=== PATIENT | female | born 1975 | race Caucasian/White ===

== ENCOUNTER → 2017-10-24 11:56 | Outpatient (CLI) | payer MEDICAID, SELFPAY ==
[2017-10-24 15:25] LABS: Absolute Lymphocyte Count 2.45 X10^3/ul (0.83-4.51); Absolute Neutrophil Count 6.7 X10^3/uL (2.0-7.7); Basophil# 0.03 X10^3/uL; Basophil% 0.3 % (0-1); Eosinophil# 0.31 X10^3/uL; Eosinophils% 3.1 % (0-5); Hematocrit 40.5 % (37-47); Hemoglobin 13.3 g/dl (12.0-15.0); Lymphocyte # 2.45 X10^3/ul (4.0); Lymphocyte % 24.1 % (19-41); Mean Corp Hgb Conc 32.8 g/gl (32-36); Mean Corpuscular Hgb 30.4 pg (27.0-32.0); Mean Corpuscular Volume 92.7 fL (81-99); Mean Platelet Vol. 10.1 fl (6.2-12.0); Monocyte# 0.62 X10^3/uL; Monocyte% 6.1 % (0-10); Neutrophil # 6.72 X10^3/uL (2.7-7.7); Neutrophil % 66.1 % (47-70); Platelet Count 297 K/mm3 (150-450); RBC Distribution Width CV 12.9 % (11.6-14.6); RBC Distribution Width SD 43.9 fl (35.1-43.9); Red Blood Count 4.37 M/mm3 (4.2-5.4); White Blood Count 10.2 K/mm3 (4.4-11.0)
[2017-10-24 15:34] LABS: Thyroid Stim Hormone (TSH) 0.84 uIU/mL (0.358-3.74)
[2017-10-24 15:44] LABS: POSITIVE COUNT NO; POSITIVE DIFFERENTIAL NO; POSITIVE MORPHOLOGY NO
== END ==
PROVIDERS: Family Provider Family Medicine; PCP Family Medicine; Visit Provider Family Medicine
DX: N92.0 Excessive and frequent menstruation with regular cycle (principal); N94.6 Dysmenorrhea, unspecified
CPT/HCPCS: 36415; 84443; 85025

== ENCOUNTER → 2017-11-01 15:08 | Outpatient (CLI) | payer MEDICAID, SELFPAY ==
[2017-11-03 14:26] LABS: HPV APTIMA, High Risk Negative (Negative)
== END ==
PROVIDERS: Nurse Practitioner Women's Health; Family Provider Family Medicine; PCP Family Medicine; Visit Provider Obstetrics & Gynecology
DX: Z12.4 Encounter for screening for malignant neoplasm of cervix (principal)
CPT/HCPCS: 88175; G0145

== ENCOUNTER → 2017-11-03 12:44 | Outpatient (CLI) | payer MEDICAID, SELFPAY ==
--- NOTE | 2017-11-03 12:45 | US_ITS ---
STUDY: ULTRASOUND TRANSVAGINAL CLINICAL: Female, 42 years old. Menorrhagia. Painful intercourse. TECHNIQUE: Transvaginal COMPARISON: None. FINDINGS: Normal uterine size measuring 9.4 cm in maximal craniocaudal dimension. Within the anterior uterine fundus there is an intramural hypoechoic rounded focus consistent with underlying fibroid which measures 1.0 x 1.0 x 0.9 cm. There is an additional intramural fibroid within the anterior lower uterine segment which measures 0.8 x 0.7 x 0.6 cm. Normal endometrial thickness measuring 7 mm. There are no endometrial masses, and there is no fluid in the endometrial cavity. Normal uterine cervix. Normal right ovary, measuring 3.2 x 2.8 x 2.0 cm. There is a simple cyst which measures up to 1.9 cm. Normal left ovary, measuring 2.8 x 2.9 x 1.9 cm. There is a simple cyst which measures up to 1.2 cm. There is no free fluid in the pelvis. Polycystic ovary disease: No. US/Transvaginal Non- IMPRESSION: Intramural uterine fibroids. Electronically Signed: Lela Gilbert MD at 17:01 EDT Tel , Service support ,
--- NOTE | 2017-11-03 12:45 | US_ITS ---
STUDY: ULTRASOUND TRANSVAGINAL CLINICAL: Female, 42 years old. Menorrhagia. Painful intercourse. TECHNIQUE: Transvaginal COMPARISON: None. FINDINGS: Normal uterine size measuring 9.4 cm in maximal craniocaudal dimension. Within the anterior uterine fundus there is an intramural hypoechoic rounded focus consistent with underlying fibroid which measures 1.0 x 1.0 x 0.9 cm. There is an additional intramural fibroid within the anterior lower uterine segment which measures 0.8 x 0.7 x 0.6 cm. Normal endometrial thickness measuring 7 mm. There are no endometrial masses, and there is no fluid in the endometrial cavity. Normal uterine cervix. Normal right ovary, measuring 3.2 x 2.8 x 2.0 cm. There is a simple cyst which measures up to 1.9 cm. Normal left ovary, measuring 2.8 x 2.9 x 1.9 cm. There is a simple cyst which measures up to 1.2 cm. There is no free fluid in the pelvis. Polycystic ovary disease: No. US/Pelvic (Non ) IMPRESSION: Intramural uterine fibroids. Electronically Signed: Lela Gilbert MD at 17:01 EDT Tel , Service support ,
== END ==
PROVIDERS: Family Provider Family Medicine; PCP Family Medicine; Visit Provider Nurse Practitioner Women's Health
DX: N92.0 Excessive and frequent menstruation with regular cycle (principal)
CPT/HCPCS: 76830; 76856; 93976

== ENCOUNTER → 2017-11-29 12:39 | Outpatient (CLI) | payer MEDICAID, SELFPAY ==
--- NOTE | 2017-11-29 13:00 | MRI_ITS ---
STUDY: MRI RIGHT ANKLE WITHOUT CONTRAST REASON FOR EXAM: Medial right heel and ankle pain for 6 months. TECHNIQUE: Standardized fat and water weighted pulse sequences were obtained in all 3 orthogonal planes. COMPARISON: None. FINDINGS: Normal subcutis adipose space. There is fluid in the proximal posterior tibialis and flexor digitorum longus tendon sheaths (inversion recovery sagittal images 7-10). There is tendinosis and partial tear of the perimalleolar posterior tibialis tendon (T2 axial images 13-16). The flexor digitorum longus tendon is morphologically normal. Normal flexor hallucis longus tendon. Normal peroneus longus and brevis tendons. Normal tibialis anterior tendon. Normal extensor hallucis longus tendon. Normal extensor digitorum longus tendons. Normal Achilles tendon and teno-osseous insertion. Normal plantar fascia. Normal plantar calcaneal tubercles. Normal intrinsic muscles of the rearfoot. Normal distal tibiofibular syndesmotic ligamentous complex. Normal lateral ligamentous complex. Normal subtalar ligaments and sinus tarsi. Normal deltoid ligamentous complexes. Normal plantar calcaneonavicular (spring) ligament. Normal tibiotalar articulation. Normal talar dome. There is a small posterior subtalar joint effusion (inversion recovery sagittal images 11-13). There is a small talonavicular joint effusion (inversion recovery sagittal image 9). Normal calcaneocuboid articulation. Normal navicular-cuneiform articulations. There is cystic change of the superior body of the calcaneus (inversion recovery sagittal images 13, 14). MRI/Lower Ext Joint Only (Routine) IMPRESSION: Partial tear, tendinosis and tenosynovitis of the posterior tibialis tendon. Flexor digitorum longus tenosynovitis. Small posterior subtalar and talonavicular joint effusions. Electronically Signed: Steve Connolly MD at 14:24 EDT Tel , Service support ,
== END ==
PROVIDERS: Family Provider Family Medicine; PCP Family Medicine; Visit Provider Podiatrist
DX: M76.822 Posterior tibial tendinitis, left leg (principal)
CPT/HCPCS: 73721

== ENCOUNTER → 2018-01-19 09:48 | Outpatient (CLI) | payer MEDICAID, SELFPAY ==
[2018-01-19 12:25] LABS: Absolute Lymphocyte Count 2.11 X10^3/ul (0.83-4.51); Absolute Neutrophil Count 5.5 X10^3/uL (2.0-7.7); Basophil# 0.03 X10^3/uL; Basophil% 0.4 % (0-1); Eosinophil# 0.27 X10^3/uL; Eosinophils% 3.2 % (0-5); Hematocrit 38.1 % (37-47); Hemoglobin 12.8 g/dl (12.0-15.0); Lymphocyte # 2.11 X10^3/ul (4.0); Lymphocyte % 24.9 % (19-41); Mean Corp Hgb Conc 33.6 g/gl (32-36); Mean Corpuscular Hgb 30.6 pg (27.0-32.0); Mean Corpuscular Volume 91.1 fL (81-99); Mean Platelet Vol. 10.1 fl (6.2-12.0); Monocyte# 0.54 X10^3/uL; Monocyte% 6.4 % (0-10); Neutrophil % 64.9 % (47-70); Platelet Count 318 K/mm3 (150-450); RBC Distribution Width CV 12.3 % (11.6-14.6); RBC Distribution Width SD 40.2 fl (35.1-43.9); Red Blood Count 4.18 M/mm3 (4.2-5.4); White Blood Count 8.5 K/mm3 (4.4-11.0)
[2018-01-19 12:38] LABS: POSITIVE COUNT NO; POSITIVE DIFFERENTIAL NO; POSITIVE MORPHOLOGY NO
[2018-01-19 12:54] LABS: ALB/GLOB Ratio 1.2 RATIO (0.9-2.4); AST(SGOT) 16 U/L (15-37); Alanine Aminotransfer ALT/SGPT 19 U/L (13-56); Alkaline Phosphatase 60 U/L (45-117); Anion Gap 8 (5-15); BUN 15 mg/dL (7-18); BUN/Creat Ratio 21.2 RATIO (10-20); Calcium,Total 8.9 mg/dL (8.5-10.1); Chloride 107 mmol/L (98-107); Creatinine, Serum 0.71 mg/dL (0.55-1.02); EST Glomerular Filtration Rate 97 mL/min (>60); Est Glom Filt Rate - Afr Amer 117 mL/min (>60); Globulin 3.2 g/dL (2.2-4.2); Glucose 88 mg/dL (74-106); Potassium 4.5 mmol/L (3.5-5.1); Protein, Total 7.2 g/dL (6.4-8.2); Sodium Level 139 mmol/L (136-145)
== END ==
PROVIDERS: Family Provider Family Medicine; PCP Family Medicine; Visit Provider Family Medicine
DX: Z01.818 Encounter for other preprocedural examination (principal)
CPT/HCPCS: 36415; 80053; 85025

== ENCOUNTER 2018-01-26 08:28 | Day surgery (SDC) | payer MEDICAID, SELFPAY ==
[2018-01-26] VITALS (7 sets, daily range): BP systolic 102–129; BP diastolic 64–81; PULSE 68–78; RESP 16–18; TEMP 36.6–36.8; O2SAT 95–100; BMI 30.7
--- NOTE | 2018-01-26 08:40 | EKG12_ITS ---
Test Reason : PRE-OP Blood Pressure : / mmHG Vent. Rate : 064 BPM Atrial Rate : 064 BPM P-R Int : 116 ms QRS Dur : 082 ms QT Int : 404 ms P-R-T Axes : 028 019 -03 degrees QTc Int : 416 ms Normal sinus rhythm Normal ECG When compared with ECG of 17-DEC-2012 11:01, No significant change was found Confirmed by MIGUELITO LORA ([id number]), assignment desk editor SARAH SLADE ([id number]) on 01/30/2018 2:08:09 PM Referred By: Ney Medrano Confirmed By:MIGUELITO LORA
[2018-01-26 08:51] LABS: Internal QC Validated? YES +Cl - CLEAR BKGD
[2018-01-26 08:55] LABS: Pregnancy, Urine Negative Negative
--- NOTE | 2018-01-26 10:00 | RAD_ITS ---
STUDY: X-RAY - RIGHT CALCANEUS REASON FOR EXAM: Female, 42 years old. Osteotomy. TECHNIQUE: 4 view(s) of the calcaneus were obtained. COMPARISON: MRI 11/29/2017. FINDINGS: There are 4 Limited [id number] intraoperative C-arm images which show a single orthopedic screw along the length of the calcaneus fixating a previous osteotomy of the posterior process into anatomic alignment and position. Correlate with procedure note. Electronically Signed: Daniel Gifford MD at 16:53 EDT , Service support , RAD/Calcaneus min 2 Views
--- NOTE | 2018-01-26 10:00 | TESH_PTH ---
PATIENT: MADISON GREER [place] [facility] [id number] AGE/SX: 42/F ROOM: RE01/26/[address]: QUIANA KeeneM : 1975 BED: DIS: 01/26/2018 SPEC #: [id number] RECD: 01/26/18 15:55 STATUS: ARI REQ #: [id number] NADEEM: 01/26/18 10:[address]: Ney Medrano DEPT: SURGICAL PATHOLOGY RECD BY: Yasmine Dow ENTERED: 01/29/18 11:52 SP TYPE: TENDON OTHR DR: Dr. Sandip Douglas, DO Tissues: Tendon and tendon sheath, NOS Procedures: Surgery Specimen Level III HEADER OPERATION: Debridement, repair posterior tibial tendon tear PRE-OP DIAGNOSIS: Posterior tibial tendon dysfunction; posterior tibial tendonitis and tear; pes planus, gastrocsoleus equinus contracture TISSUE SUBMITTED: Debridement right posterior tibial tendon MICROSCOPIC DIAGNOSIS Right posterior tibial tendon: Pieces of dense fibroconnective tissue with reactive changes. ANUPAM:faustino 01/30/18 MICROSCOPIC DESCRIPTION Slides are reviewed. GROSS DESCRIPTION Received in fixative is one container labeled with the patient's name and designated debridement right posterior tibial tendon. The specimen consists of multiple pieces of joyce-white soft tissue that in aggregate measure 3 x 2.5 x 0.3 cm. The entire specimen is submitted in one cassette. / ANUPAM:faustino 01/29/18 TC:5 CPT: 41055
[2018-01-26] MEDS: Cefazolin 2 GM in 0.9% Normal Saline 100 ML IV (10:52)
[2018-01-26] MEDS: Bupivacaine 0.25% 30 ML Vial (14:10)
--- NOTE | 2018-01-26 14:21 | RAD_ITS ---
STUDY: X-RAY - RIGHT FOOT CLINICAL: Female, 42 years old. Post op. TECHNIQUE: 3 view(s) of the foot. COMPARISON: Calcaneus, January 26, 2018. MRI of the right ankle, November 29, 2017. FINDINGS: There is a cortical screw transfixing the length of the calcaneus. The fractures appear to be in normal alignment. Normal talus and tarsal bones. Normal visualized subtalar, talonavicular, calcaneocuboid, tarsal and tarsometatarsal articulations. Normal metatarsi. Normal metatarsophalangeal joint of the great toe. Normal tibial and fibular sesamoid bones. Normal interphalangeal joint of the great toe. Normal phalanges of the great toe. Normal second through fifth metatarsophalangeal joints. Normal interphalangeal joints and phalanges of the lesser toes. Soft tissues thickening and air about the hindfoot. RAD/Foot min 3 Views IMPRESSION: Status post internal fixation of a calcaneal fracture. Electronically Signed: Rob Guerrero DO at 15:18 EDT Tel [phone], Service support ,
--- NOTE | 2018-01-26 14:22 | RAD_ITS ---
STUDY: X-RAY - RIGHT CALCANEUS REASON FOR EXAM: Female, 42 years old. Postop. TECHNIQUE: 2 view(s) of the calcaneus were obtained. COMPARISON: Right foot, January 26, 2018. FINDINGS: There is a metallic screw transfixing the length of the calcaneus. The calcaneus appears otherwise normal. The fractures in normal alignment. Normal articulations of the hindfoot. A semiopaque splint is seen along the dorsum of the foot and posterior leg. RAD/Calcaneus min 2 Views IMPRESSION: Status post internal fixation of a calcaneal fracture. Electronically Signed: Rob Guerrero DO at 15:22 EDT Tel [phone], Service support ,
--- NOTE | 2018-01-26 14:23 | PCM.DC.POD ---
Discharge Diet: Light diet - advance as tolerated Discharge Activity: May Not Drive Weight Bearing Status: No weight bearing - No weightbearing right foot Keep extremity elevated above heart level: Right Leg - Keep right foot elevated for at least 50 minutes of every hour Call your doctor if your incision/area has: Continuous Slow Oozing, Sudden Increased Bleeding, Foul Smelling Discharge Call your doctor if you observe: Fever of 101 or Higher, Shortness of breath, Chest pain, Calf discomfort, Uncontrolled pain Cleanse incision/area with: Do not get Incision Wet, Keep Dressing Clean & Dry Allergies/Adverse Reactions: Allergies SEASONAL Allergy (Uncoded 01/24/18 14:44) Other Medications to take at Discharge citalopram 20 mg tablet 20 mg PO QDAY 11/01/17 desogestrel 0.15 mg-ethinyl estradiol 0.03 mg tablet 1 tab PO QDAY #28 tab 12/27/17 Amoxicillin/Potassium Clav [Augmentin 500-125 Tablet] 1 ea PO Q12H #14 tab 01/26/18 Oxycodone HCl/Acetaminophen [Percocet 5/325] 1 - 2 tab PO Q4H PRN PRN 3 Days #40 tab 01/26/18 Rivaroxaban [Xarelto] 10 mg PO DAILY #30 tab 01/26/18 The following prescriptions were given: Oxycodone HCl/Acetaminophen [Percocet 5/325] 1 - 2 tab PO Q4H PRN PRN 3 Days #40 tab PRN Reason: Pain Amoxicillin/Potassium Clav [Augmentin 500-125 Tablet] 1 ea PO Q12H #14 tab Rivaroxaban [Xarelto] 10 mg PO DAILY #30 tab Primary Care Physician: Sandip Douglas DO [Primary Care Provider] - Test Results: Test results from this visit will be discussed in further detail at your follow-up appointment, if applicable. Please Follow Up With: Ney Medrano DPM When: within 1 week or sooner if needed
--- NOTE | 2018-01-26 14:28 | OP.PCM_ITS ---
Report of Operation Date of Procedure: 01/26/18 Pre-Operative Diagnosis: Posterior tibial tendon tear/tendinosis, pes planovalgus, posterior tibial tendon dysfunction, gastrocsoleus equinus right foot Post-Operative Diagnosis: Same Surgery/Procedure Performed:: Debridement and repair of the posterior tibial tendon, flexor digitorum longus tendon transfer, calcaneal osteotomy, and endoscopic gastrocsoleus recession, right general maintenance helper: Yes - Dr. Rosangela Watson Type of Anesthesia:: MAC, Spinal Specimen's removed: Debrided posterior tibial tendon (right) sent to pathology Estimated Blood Loss (mL): 50mL Description of Procedure: Indications: This is a 42 year old female who has continued right foot pain due to dysfunction of the posterior tibial tendon, flexible pes planovalgus, partial tear and tendinosis and tenosynovitis of the posterior tibial tendon. She continues to have pain despite immobilization, bracing, rest, activity modifications, icing, and anti-inflammatories. She has elected to undergo surgical intervention as noted above. The procedures were reviewed with her, reviewed the rationale of the procedures as well as the possible benefits, risks , goals, expectations, alternative options, and typical healing/post operative recovery course. This was discussed with her in detail, she expressed understanding and agreement, she elected to proceed forward. All of her questions were answered. The consent forms were reviewed with her, and she freely signed them. No guarantees were given nor implied. Operative Procedure: The patient was brought back into the operating room. The patient received spinal anesthesia per the anesthesia team. The patient was placed on the operating table in the supine position. Patient was carefully secured to the operating room table with a safety belt around her waist. A time out was performed and the patient was properly identified and the surgical plan was confirmed. The patient received MAC anesthesia per the anesthesia team. The patient received 2 grams of intervenous Cefazolin for antibiotic prophylaxis. A well padded pneumatic tourniquet was applied around the patient's right thigh. The right lower extremity was scrubbed, prepped, and draped in the usual aseptic fashion. Attention was directed to the right foot, there was noted to be Stage 2 flexible pes planovalgus present with gastrocsoleus equinus present. There was - 3 degrees dorsiflexion with knee extended and less than 10 degrees with knee flexed. The right foot was elevated for 3 minutes and the right thigh pneumatic tourniquet was inflated to 300mmHg. Attention was directed to the hindfoot. An oblique linear skin incision was made to the lateral aspect of the heel overlying the calcaneal wall. Careful direction was completed down to the lateral calcaneal wall being sure to avoid the sural nerve and peroneal tendons. A calcaneal osteotomy was planned, and was made using a powered sagittal saw, going through the body of the calcaneus from lateral to medial and from posterior proximal to anterior distal. The osteotomy was finished with an osteotome through the medial wall of the calcaneus being sure to avoid the medial tendons and neurovascular bundle. The posterior calcaneus was gently freed up and translated medially. Clinically it was displaced medially 6mm. It was fixated using one cannulated 7.0mm Arthrex screw. A small skin incision was made to the posterior heel with careful dissection completed down to the cortex of the calcaneus. It was placed using standard rigid open reduction internal fixation technique. The osteotomy was very stable with good fixation, there was good bone to bone compression. Proper placement of the screw was confirmed using intra operative fluoroscopy. The ledge of bone on the lateral calcaneal wall at the level of the osteotomy was gently smoothed down. The sites was flushed out with copious amounts of normal saline solution. The subcutaneous tissue was reapproximated using 3-0 Vicryl. The skin was reapproximated using 4-0 Monocryl. Attention was directed to the medial foot and ankle. A curvilinear skin incision was made along the course of the posterior tibial tendon from the medial ankle to just distal to the navicular tuberosity. Careful dissection was completed through the subcutaneous tissue to the posterior tibial tendon sheath. The posterior tibial tendon sheath was opened with a dissection scissor. The posterior tibial tendon was visualized, there was significant tenosynovitis, as well as tendinosis with hypertrophy. There was noted to be a longitudinal partial tear of the posterior tibial tendon as well. This involved <50% and the tendon appeared to be salvageable. It was intact at it's insertion point on the navicular tuberosity. The unhealthy tissue was debrided away, removing the tenosynovitis and tendinosis, this was debrided with a 15 scalpel blade, and the debrided tissue was sent to pathology. The longitudinal tear of the posterior tibial tendon was repaired and tubularized using 3-0 Vicryl. The flexor digitorum longus tendon sheath was visualized and opened using a dissecting scissor. The tendon was noted to be intact, and it was noted to be healthy and viable, however it was noted to be small in diameter. The was related proximal to the knot of Rob. A drill hole was placed through the navicular starting from plantar medial and exited dorsal lateral. Proper placement of the screw was confirmed using intra operative fluoroscopy. The flexor digitorum tendon was routed through the drill hole in the navicular and pulled to the appropriate tension, and a 4.75mm Arthrex tenodesis screw was placed holding the flexor digitorum longus tendon in/to the navicular for the transfer. It was holding very well and in good position. The site was flushed out with copious amounts of normal saline solution. The tendon sheaths were reapproximated using 3-0 Vicrul. The subcutaneous tissue was reapproximated using 3-0 Vicryl. The skin was reapproximated using 4-0 Monocryl. Attention was directed just distal to the medial head of the gastrocnemius muscle belly on the posterior leg. A 1cm linear skin incision was made using a 15 blade at this level at the medial aspect. Careful blunt dissection was completed down to the gastrocsoleus aponeurosis. A fascial elevator was used and a plane was complete between the subcutaneous tissue and the posterior aspect of the gastrocsoleus aponeurosis, and a 1cm linear skin incision was made using a 15 blade at the lateral aspect of the leg to create the lateral portal. The fascial elevator was removed. An obturator and slotted cannula was placed through the medial and lateral portals. The obturator was removed and the slot was faced posteriorly. The sural nerve and the small saphenous vein were visualized confirming they were out of the way. The slot was rotated to face anteriorly and the gastrocsoleus aponeurosis was visualized. Using a hook blade the gastrocsoleus aponeurosis was released, being sure not to cut into the soleus muscle belly. The underlying soleus muscle belly was visualized. There was now noted to be +10 degrees of ankle dorsiflexion with knee extended, and +10 with the knee flexed. The obturator was placed in the cannula, and they were both removed. The site was flushed out with copious amounts of normal saline solution. The skin was reapproximated using 4-0 Monocryl. The pneumatic tourniquet was deflated and there was immediate return of warm and perfusion to the left lower extremity, with normal CFT to all of the toe and normal temperature present. The foot was load, and it was noted the foot was in good alignment with correction of the stage 2 flatfoot. There was smooth normal range of motion of the foot and ankle, with no popping, clicking or crepitus noted. Cavilon was painted to the edges of the suture skin incisions. Steri-strips were applied across the suture skin incisions. A dressing was applied which consisted of Betadine soaked adaptic, 4x4 gauze, Kerlix, renny bandage and a well padded below knee posterior splint secured with renny bandages. The patient tolerated the above operative procedure well and the anesthesia well with no complications. The patient was transported from the operative room to the recovery room with vital sign stable and in good condition. Post operative orders were placed. Post operative instructions were reviewed with patient and her mother who was with her today - both verbal and written. Keep feet elevated for at least 50 minutes of every hour, keep dressings clean, dry, and intact. No weightbearing right foot. Percocet 5mg/325mg 1-2 tabs PO q 4 hours PRN pain. Xarelto 10mg PO once daily was prescribed for DVT prophylaxis. Patient to follow up in 1 week, or sooner if needed. P ost operative xrays were obtained the the recovery room, 3 view foot and 2 view calcaneus. These images were reviewed which confirmed calcaneal osteotomy with screw fixation intact, proper placement of the screw and good bone to bone contact. There is noted drill hole through the navicular for the tendon transfer. No evidence of complications. Grafts/Implants Used: 7.0mm Arthrex screw, 4.75mm Arthrex tenodesis screw
== END 2018-01-26 15:56 | disposition home or self-care (01) ==
LOC: SDC 08:29 → AC 08:32
PROVIDERS: Anesthesiology; Family Provider Family Medicine; PCP Family Medicine; Visit Provider Podiatrist
PROC: (CPT 29999; principal; 2018-01-26 09:45)
PROC: (CPT 28300; 2018-01-26 09:45)
DX: M76.821 Posterior tibial tendinitis, right leg (principal); M21.41 Flat foot [pes planus] (acquired), right foot; M21.071 Valgus deformity, not elsewhere classified, right ankle; S86.111A Strain of other muscle(s) and tendon(s) of posterior muscle group at lower leg level, right leg, initial encounter; X58.XXXA Exposure to other specified factors, initial encounter; Y93.9 Activity, unspecified; Y92.9 Unspecified place or not applicable; Y99.9 Unspecified external cause status; F32.9 Major depressive disorder, single episode, unspecified; F41.9 Anxiety disorder, unspecified; F17.200 Nicotine dependence, unspecified, uncomplicated; Z79.899 Other long term (current) drug therapy; Z79.01 Long term (current) use of anticoagulants
CPT/HCPCS: 01470; 27691; 28200; 28300; 29999; 64445; 73630; 73650; 76000; 81025; 88304; 93005; C1713; J7120; J2405

== ENCOUNTER 2018-05-03 10:00 | Outpatient (RCR) | payer MEDICAID, SELFPAY ==
--- NOTE | 2018-03-30 10:49 | HP.PTEVAL_ITS ---
Patient's Visit Information MADISON GREER is a 42 year old F referred to Physical Therapy by Ney Medrano with a diagnosis of R post tib tendon repair and gastroc recession. Date of Evaluation: 03/30/18 Physical Therapist: Cayetano Venegas PT, - Visit Plan Frequency: 2-3x /Week Duration: 4 Weeks Plan: R ankle stretching and strengthening, PROM/Mobs, balance and proprio, bike , and HEP - Subjective Subjective: DOS: 01/26/18. Pt reports she had her tibial tendon repaired. at that time. Pt notes she also had to have her heel bone shaved and her achilles reattached. Pt reports she was really sore after the surgery, but is doing better now. Pt notes her heel still feels wierd, and she gets a shooting pain on the medial aspect of her R ankle. Pt reports she is still trying to get out of her CAM walker at this time. Pt reports she is alternating for 1 hour being in/out of her boot. 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 Pt negotiates one step at a time. Pt notes occasional sleep diff secondary to pain. Pt notes her heel is both numb and tingly, but no other R LE radiculopathy. 0/10 pain at rest, 5/10 at worst (if she walks on her R LE for a prolonged period of time.) - Pain R foot Pain Intensity (Out of 10): 0 Pain Intensity Range: 5 - Objective Neuro: B LE sensation is WNL to light touch. Observation: Incisions are healed at this time. No signs of infection. ROM: L ankle DF= 15, PF= 55, Inv= 45, ever = 25; R ankle DF= 0, PF= 45, Inv= 20, ever= 5. MMT: L ankle 5/5 throughout, R ankle 3/5 throughout. Gait: Pt anbulates with a mild limp of her R LE. Slow cadance at this time. Lacks HS and toe off - Goals Goal 1:: Decrease R foot pain x 50% to aid with sleep Goal Time Frame: 4-6 Weeks Goal 2:: Increase R ankle DF ROM x 10-15 degrees to aid with restoring a more normalized gait pattern Goal Time Frame: 4-6 Weeks Goal 3:: Increase R ankle strength x 1 grade to aid with stair negotiation Goal Time Frame: 4-6 Weeks Goal 4:: I with HEP Goal Time Frame: 4-6 Weeks - Rehabilitation Potential Physical Therapy Diagnosis: R foot pain, weakness, and limited ROM secondary to posterior tibial tendon repair with gastroc recession Rehabilitation Potential: Good - Anticipated Interventions Patient/Client Instruction: Educate patient on: Condition, Plan of Care For the Purpose of:: To improve self management Therapeutic Exercise to Include: Strength training, Endurance training, Balance training, Flexibilty training, Gait and locomotor training, Passive ROM, Active ROM For the Purpose of:: To decrease pain, To increase ROM, To improve muscle performance and motor function Cryotherapy (ice pack, ice massage): Yes For the Purpose of:: To decrease pain Thank you for the opportunity to evaluate your patient. For Medicare and Medicare HMO plans, please review the plan of care and approve it. It will need to be FAXED BACK to us at [phone] for Medicare purposes. Please let me know if there are questions or concerns regarding this plan of care. Physician Signature: Date:
--- NOTE | 2018-05-03 10:15 | HP.PTDCSUM ---
HP - PT D/C Summary It has been my pleasure to treat MADISON GREER under orders from Ney Medrano, for the diagnosis of R post tib tendon repair and gastroc recession for a total of 11 visit(s). Discharge Date: Please see the following information for a summary of their discharge status. - Subjective Subjective: Pt reports no pain this date. Pt feels ready to continue I - Pain R foot Pain Intensity (Out of 10): 0 - Objective Objective/Function: R ankle pain 0/10. R ankle DF ROM: 14 degrees. R ankle MMT: 5/5 throughout. Pt is I with her previously issued HEP. Rx goals achieved - Goals Goal 1:: Decrease R foot pain x 50% to aid with sleep Goal Progress: Goal Met Goal 2:: Increase R ankle DF ROM x 10-15 degrees to aid with restoring a more normalized gait pattern Goal Progress: Goal Met Goal 3:: Increase R ankle strength x 1 grade to aid with stair negotiation Goal Progress: Goal Met Goal 4:: I with HEP Goal Progress: Goal Met - Plan Plan: Discharge - D/C Information If there are questions or concerns regarding this patient's physical therapy, please feel free to call me at [phone]. Thank you for the referral of this patient. Sincerely, Cayetano Venegas, PT,
== END 2018-05-03 19:00 | disposition home or self-care (01) ==
LOC: PT 10:00
PROVIDERS: Family Provider Family Medicine; PCP Family Medicine; Visit Provider Podiatrist
DX: Z98.890 Other specified postprocedural states (principal)
CPT/HCPCS: 97014; 97110; 97162; 97530; G0283

== ENCOUNTER → 2018-06-07 10:30 | Outpatient (CLI) | payer MEDICAID, SELFPAY ==
[2018-05-08 09:52] VITALS: BMI 31.4
--- NOTE | 2018-06-07 10:32 | BI_ITS ---
MAMMOGRAPHY - BILATERAL SCREENING REASON FOR EXAM: Female, 43 years old. Routine annual screening examination. PERTINENT HISTORY: Non-contributory. TECHNIQUE: Digital bilateral breast john (3D mammographic acquisition) in the CC and MLO projections. 2-D mediolateral oblique (MLO) and craniocaudad (CC) views of both breasts were obtained. CAD: Full Field Digital Mammography with Computer Added Detection was performed. COMPARISON: Comparison is made with prior study dated September 02, 2016. FINDINGS: Breast Composition: The breasts are heterogeneously dense, which may obscure small masses. There are no dominant masses or suspicious calcifications. A tissue clip marker is seen in the anterior superior lateral portion of the left breast. Small nodule is seen at that site. No other significant abnormalities are identified. BI/SCREENING MAMM (CAD), BILAT IMPRESSION: Stable bilateral screening mammogram. Yearly follow-up mammogram recommended. (A) ASSESSMENT CATEGORY: BIRADS Category 2: Benign. A letter regarding these results will be sent to the patient by the facility within 30 days. Approximately 10% of breast cancers are not detected by mammography. A normal mammogram should not delay biopsy of a clinically suspicious abnormality. [id number] Electronically Signed: Je Mcfarland MD at 12:29 EST Tel [phone], Service support ,
--- OUTSIDE RECORDS SUMMARY | 2018-08-02 12:35 | XMS RPT_ITS ---
:1975 Author Organization OHIP Support Name Relationship Address Phone ANIBAL BAKER Unavailable [address] + [place] [address] JETT GREER Unavailable [address] + [place] [address] UE Unavailable Unavailable Unavailable ANIBAL BAKER Unavailable Unavailable + [place] [address] JETT GREER Unavailable [address] + [place] [address] UE Unavailable Unavailable Unavailable BOBBY BAKERE Unavailable . + [place] [address] JETT GREER Unavailable [address] + [place] [address] UE Unavailable Unavailable Unavailable SAMUELANIBAL Unavailable Unavailable + JETT GREER Unavailable [address] + [place] [address] UE Unavailable Unavailable Unavailable ANIBAL BAKER Unavailable Unavailable + [place] [address] JETT GREER Unavailable [address] + [place] [address] UE Unavailable Unavailable Unavailable ANIBAL BAKER Unavailable Unavailable + [place] [address] JETT GREER Unavailable [address] + [place] [address] UE Unavailable Unavailable Unavailable SAMUELBOBBYE Unavailable Unavailable + [place] [address] JETT GREER Unavailable [address] + [place] [address] UE Unavailable Unavailable Unavailable SAMUELBOBBYE Unavailable Unavailable + [place] [address] PERCY, JETT Unavailable [address] + [place] [address] UE Unavailable Unavailable Unavailable ANIBAL BAKER Unavailable . + [place] [address] PERCY, JETT Unavailable [address] + [place] [address] UE Unavailable Unavailable Unavailable ANIBAL BAKER Unavailable Unavailable + [place] [address] PERCY, JETT Unavailable [address] + [place] [address] UE Unavailable Unavailable Unavailable BOBBY BAKERE Unavailable Unavailable + [place] [address] PERCY, JETT Unavailable [address] + [place] [address] UE Unavailable Unavailable Unavailable ANIBAL BAKER Unavailable Unavailable + [place] [address] PERCY, JETT Unavailable [address] + [place] [address] UE Unavailable Unavailable Unavailable PERCY, JETT Unavailable [address] + [place] [address] UE Unavailable Unavailable Unavailable PERCY JETT Unavailable [address] + [place] [address] UE Unavailable Unavailable Unavailable Care Team Providers Name Role Phone Zhanna Ambrose Attending Unavailable Stella, Sandip Referring Unavailable Stella, Sandip Attending Unavailable Stella, Sandip Primary Care Unavailable Juliane Carpio Attending Unavailable Stella, Sandip Referring Unavailable Stella, Sanidp Primary Care Unavailable Juliane Carpio Attending Unavailable Juliane Carpio Referring Unavailable Stella, Sandip Primary Care Unavailable Zhanna Ambrose Attending Unavailable Stella, Sandip Primary Care Unavailable Zhanna Ambrose Referring Unavailable Ney Medrano Attending Unavailable Ney Medrano Referring Unavailable Stella, Sandip Primary Care Unavailable Zhanna Ambrose Attending Unavailable Stella, Sandip Referring Unavailable Stella, Sandip Primary Care Unavailable Ney Medrano Attending Unavailable Ney Medrano Referring Unavailable Stella, Sandip Primary Care Unavailable Sara Hernandez Attending Unavailable Stella, Sandip Primary Care Unavailable Ruben Lora Attending Unavailable Mitchell, Ney Referring Unavailable Balaji, Juliane Attending Unavailable Sandip Douglas Referring Unavailable Mitchell, Ney Attending Unavailable Mitchell, Ney Referring Unavailable Sandip Douglas Primary Care Unavailable Balaji, Juliane Attending Unavailable Stella, Sandip Referring Unavailable Marcanthony, Zhanna Attending Unavailable Marcanthony, Zhanna Referring Unavailable StellaSandip edmonds Primary Care Unavailable PROBLEMS PROBLEMS DATE TYPE CONDITION / CODE ATTENDING STATUS SOURCE 06/20/2018 Unknown Z30.9 - Encounter Halie, Active [place] for contraceptive [facility] unspecified / Repository Z30.9(ICD-10) 05/17/2018 Unknown N93.9 - Abnormal Balaji, Juliane Active [place] uterine and vaginal [facility] bleeding, Hospital unspecified / Repository N93.9(ICD-10) 05/04/2018 Unknown Z98.890 - Other [place], Active [place] specified [facility] postprocedural Hospital states / Repository Z98.890(ICD-10) 01/26/2018 Unknown M62.89 - Other [place], Active [place] specified disorders [facility] of muscle / Hospital M62.89(ICD-10) Repository 01/26/2018 Unknown M76.821 - Posterior [place], Active [place] tibial tendinitis, [facility] right leg / Hospital M76.821(ICD-10) Repository 03/01/2018 Unknown Z01.810 - Encounter Ruben Lora Active [place] for preprocedural [facility] cardiovascular Hospital examination / Repository Z01.810(ICD-10) 11/29/2017 Unknown M76.822 - Posterior [place], Active [place] tibial tendinitis, [facility] left leg / Hospital M76.822(ICD-10) Repository 11/02/2017 Unknown Z12.4 - Encounter Halie, Active [place] for screening for [facility] malignant neoplasm [facility] of cervix / Repository Z12.4(ICD-10) 11/01/2017 Unknown N92.0 - Excessive Balaji, Juliane Active [place] and frequent [facility] menstruation with Hospital regular cycle / Repository N92.0(ICD-10) 11/01/2017 Unknown Z12.31 - Encounter [place], Juliane Active [place] for screening [facility] for Hospital malignant neoplasm Repository of breast / Z12.31(ICD-10) 10/25/2017 Unknown N94.6 - Sandip Douglas Active [place] Dysmenorrhea, [facility] unspecified / Hospital N94.6(ICD-10) Repository PROCEDURES PROCEDURES No Procedure Records FoundRESULTS RESULTS 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 [place] [address] OFFICE VISIT Date of Service: 06/20/18 MR#: [id number] Acct: [id number] Name: MADISON GREER Rep #: [id number] : 1975 Provider: Zhanna Ambrose MD Age/Sex: 43/F Location: [facility] Status: Signed Intake Vital Signs06/20/18 Height 5 ft 3 in 06/20/18 Weight: 169 lb 4 oz 06/20/18 Body Mass Index (BMI) 29.9 06/20/18 Blood Pressure 112/62 Intake Visit Reasons: NEXPLANON INSERTION Chief Complaint: Nexplanon Insertion 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: No Is patient in pain?: No Allergies SEASONAL Allergy (Uncoded 06/20/18 09:41) Other Medications citalopram 20 mg tablet 20 mg PO QDAY 11/01/17 [History Confirmed 05/08/18] Rivaroxaban [Xarelto] 10 mg PO DAILY #30 tab 01/26/18 [Rx] Is last menstrual period known: No Post menopausal: No Patient : No : No PFSH PFSH Medical History Endometriosis (Acute) Surgical History S/P (Resolved) Social History adopted: Yes Smoking Status: Current every day smoker alcohol intake: never substance use type: does not use caffeine: Yes what type of physical activity do you participate in: aerobics frequency: 3-4 times per week seatbelt use: always do you feel safe at home: Yes 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 DatName GA/WeeksOutcome [facility] LgAnesthesDel LocaProviderFOB e ht en ia tn Unknown Gris-20 12 HPI NEXPLANON INSERTION: Details: MADISON GREER is a 43 year old who presents for nexplanon insertion Patient declines UPT Office Procedures Nexplanon insert Nexplanon Insertion Test: Yes Not Applicable Consent Signed: Yes Time out checklist: patient, procedure, site marked/identified, positioning of patient, supplies available, allergies confirmed, team agrees on procedure Time out time: 10:00 Details: Sign in Communication: Completed Sign out Discussion: Completed Technique: Patient placed in supine position with left arm bent at the elbow and placed over the head. Skin cleansed with betadine. 1mL of 1% lidocaine with epinephrine injected subQ along insertion site. 5mm stab incision made with a scalpel and Nexplanon raysa inserted under sterile technique. The raysa was palpable under the skin after insertion and the notch visible on the trochar after insertion. Steristrips and sterile pressure dressing applied. Nexplanon 68 mg subdermal implant (etonogestrel) 68 mg Subdermal ONCE IUD Details: Sign in Communication: Completed Sign out documentation: Completed The uterus sounded to [] cm. After prepping the cervix with betadine and using sterile technique, the cervix was grasped with a single tooth tenaculum and the IUD was inserted without difficulty and the string was cut to 3cm from the external os of the cervix. All instruments were removed from the vagina and excellent hemostasis was noted. Procedure Summary: patient tolerated the procedure well without complication. 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 Assessment AND Plan Problems 1. Abnormal uterine bleeding N93.9 nexplanon Plan nexplanon inserted fu in 2-3 months Orders Orders: Medications Discontinued: Nexplanon (etonogestrel) Discontinued Reason: O68 mg Subdermal ONCE 1 ea 0RF NS Z30.9 ffice Medication has been Documented as given Coding Level of Care Code Off vis,est,level 2 Diagnoses Abnormal uterine bleeding N93.9 Additional Codes Nexplanon Insertion (29686) 06/20/18 1315 <Electronically signed by Zhanna Ambrose MD> Date Zhanna Ambrose MD Cosigner Signature: Date (if applicable) CC: SCREENING MAMM (CAD), Observed: 06/07/2018 Status: F Source: [facility] 10:32 AM [facility] REPOSITORY [facility] Imaging Services [address] [place] [address] SCREENING MAMM (CAD), BIL MR#: [id number] Acct: [id number] Name: MADISON GREER Rep #: [id number] : 1975 F 43 From: Je Mcfarland MD PCP: Sandip Douglas DO Status: REG CL Study: SCREENING MAMM (CAD), BIL Date of Exam: 06/07/18 Exam# [id number] Ordering Dr: Zhanna Ambrose MD MAMMOGRAPHY - BILATERAL SCREENING REASON FOR EXAM: Female, 43 years old. Routine annual screening examination. PERTINENT HISTORY: Non-contributory. TECHNIQUE: Digital bilateral breast john (3D mammographic acquisition) in the CC and MLO projections. 2-D mediolateral oblique (MLO) and craniocaudad (CC) views of both breasts were obtained. CAD: Full Field Digital Mammography with Computer Added Detection was performed. COMPARISON: Comparison is made with prior study dated September 02, 2016. FINDINGS: Breast Composition: The breasts are heterogeneously dense, which may obscure small masses. There are no dominant masses or suspicious calcifications. A tissue clip marker is seen in the anterior superior lateral portion of the left breast. Small nodule is seen at that site. No other significant abnormalities are identified. BI/SCREENING MAMM (CAD), BILAT IMPRESSION: Stable bilateral screening mammogram. Yearly follow-up mammogram recommended. (A) ASSESSMENT CATEGORY: BIRADS Category 2: Benign. A letter regarding these results will be sent to the patient by the facility within 30 days. Approximately 10% of breast cancers are not detected by mammography. A normal mammogram should not delay biopsy of a clinically suspicious abnormality. 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 [place] [address] OFFICE VISIT Date of Service: 05/08/18 MR#: [id number] Acct: [id number] Name: MADISON GREER Rep #: [id number] : 1975 Provider: YOLIS Carpio Age/Sex: 43/F Location: [facility] Status: Signed Intake Vital Signs05/08/18 Height 5 ft 3 in 05/08/18 Weight: 177 lb 6 oz 05/08/18 Body Mass Index (BMI) 31.4 05/08/18 Blood Pressure 102/60 Intake Visit Reasons: irregular bleeding on BC Chief Complaint: Irregular Menses on BC 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: No Is patient in pain?: No Allergies SEASONAL Allergy (Uncoded 05/08/18 09:53) Other Medications citalopram 20 mg tablet 20 mg PO QDAY 04/25/18 [History Confirmed 05/08/18] desogestrel 0.15 mg-ethinyl estradiol 0.03 mg tablet 1 tab PO QDAY #28 tab 12/27/17 [Rx Confirmed 05/08/18] Rivaroxaban [Xarelto] 10 mg PO DAILY #30 tab 01/26/18 [Rx] Is last menstrual period known: Yes Last Menstral Period: 04/09/18 Post menopausal: No Patient : No : No PFSH Medical History Endometriosis (Acute) Surgical History S/P (Resolved) Social History adopted: Yes Smoking Status: Current every day smoker alcohol intake: never substance use type: does not use caffeine: Yes what type of physical activity do you participate in: aerobics frequency: 3-4 times per week seatbelt use: always do you feel safe at home: Yes 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 States has been taking same time each day but wants something she does not have to take daily. She has looked into nexplanon and IUDs and wishes to try a nexplanon. She denies other concerns. Female Reproductive History Last Menstral Period: 04/09/18 Pregancy History 1 Elective abortions Hx Para 1 Spontaneous abortions Past Pregnancies Del. DatName GA/WeeksOutcome Route [facility] LocaProviderFOB e ht en ia tn Unknown Gris-20 12 ROS Const Constitutional: Reports weight gain; denies poor appetite, headache(s), fever(s), increased appetite, weight loss or fatigue GI GI: Denies as per HPI : Reports as per HPI Exam Const General: no acute distress Nutritional Appearance: well nourished Orientation: oriented x3 Assessment AND Plan Problems 1. Abnormal uterine bleeding N93.9 apri ordered, discussed she is not the best ablation candidate due to pain, discussed lysteda, iud, or hysterectomy Plan Discussed options for control of menses and wishes to proceed with nexplanon. Discussed insertion, benefits, risks and side effects especially related to irregular bleeding, she agrees to proceed. Will do insurance auth and schedule with Dr. Ambrose for insertion. 15 min FTF counseling with patient Coding Level of Care Code Off vis,est,level 3 Diagnoses Abnormal uterine bleeding N93.9 05/08/18 1010 <Electronically signed by Juliane Carpio NP-C> Date Juliane Carpio PARTS PICKER-C Cosigner Signature: Date (if applicable) CC: PT D/C SUMMARY (1) Observed: 05/03/2018 Status: F Source: [place] 10:16 AM [facility] REPOSITORY [facility] Physical [facility] [address] [place] [address]. [address] [place], [place] [address] Fax REHABILITATION SERVICES DISCHARGE SUMMARY MR#: [id number] Acct: [id number] Name: MADISON GREER Rep #: [id number] : 1975 43 From: Cayetano Venegas PT, ATC Referring Dr.: Ney Medrano DPM Status: REG RCR Insurance: [facility] SELF PAY INSURANCE HP - PT D/C Summary It has been my pleasure to treat MADISON GREER under orders from Ney Medrano, for the diagnosis of R post tib tendon repair and gastroc recession for a total of 11 visit(s). Discharge Date: Please see the following information for a summary of their discharge status. - Subjective Subjective: Pt reports no pain this date. Pt feels ready to continue I - Pain R foot Pain Intensity (Out of 10): 0 - Objective Objective/Function: R ankle pain 0/10. R ankle DF ROM: 14 degrees. R ankle MMT: 5/5 throughout. Pt is I with her previously issued HEP. Rx goals achieved - Goals Goal 1:: Decrease R foot pain x 50% to aid with sleep Goal Progress: Goal Met Goal 2:: Increase R ankle DF ROM x 10-15 degrees to aid with restoring a more normalized gait pattern Goal Progress: Goal Met Goal 3:: Increase R ankle strength x 1 grade to aid with stair negotiation Goal Progress: Goal Met Goal 4:: I with HEP Goal Progress: Goal Met - Plan Plan: Discharge - D/C Information If there are questions or concerns regarding this patient's physical therapy, please feel free to call me at [phone]. Thank you for the referral of this patient. Sincerely, Cayetano Venegas PT, <Electronically signed by Cayetano Venegas PT, ATC> 05/03/18 1016 CC: Ney Medrano DPM; Sandip Douglas DO [facility] Signed INITAL EVALUATION (1) Observed: 03/30/2018 Status: F Source: [place] 10:49 AM [facility] REPOSITORY [facility] [address] [place] [address]. [address] [place] [address] Fax REHABILITATION SERVICES INITIAL EVALUATION MR#: [id number] Acct: [id number] Name: MADISON GREER Rep #: [id number] : 1975 42 From: Cayetano Venegas PT, ATC Referring Dr.: Ney Medrano DPM Status: REG RCR Insurance: [facility] SELF PAY INSURANCE Patient's Visit Information MADISON GREER is a 42 year old F referred to Physical Therapy by Ney Medrano with a diagnosis of R post tib tendon repair and gastroc recession. Date of Evaluation: 03/30/18 Physical Therapist: Cayetano Venegas PT, - Visit Plan Frequency: 2-3x /Week Duration: 4 Weeks Plan: R ankle stretching and strengthening, PROM/Mobs, balance and proprio, bike, and HEP - Subjective Subjective: DOS: 01/26/18. Pt reports she had her tibial tendon repaired. at that time. Pt notes she also had to have her heel bone shaved and her achilles reattached. Pt reports she was really sore after the surgery, but is doing better now. Pt notes her heel still feels wierd, and she gets a shooting pain on the medial aspect of her R ankle. Pt reports she is still trying to get out of her CAM walker at this time. Pt reports she is alternating for 1 hour being in/out of her boot. 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 Pt negotiates one step at a time. Pt notes occasional sleep diff secondary to pain. Pt notes her heel is both numb and tingly, but no other R LE radiculopathy. 0/10 pain at rest, 5/10 at worst (if she walks on her R LE for a prolonged period of time.) - Pain R foot Pain Intensity (Out of 10): 0 Pain Intensity Range: 5 - Objective Neuro: B LE sensation is WNL to light touch. Observation: Incisions are healed at this time. No signs of infection. ROM: L ankle DF= 15, PF= 55, Inv= 45, ever= 25; R ankle DF= 0, PF= 45, Inv= 20, ever= 5. MMT: L ankle 5/5 throughout, R ankle 3/5 throughout. Gait: Pt anbulates with a mild limp of her R LE. Slow cadance at this time. Lacks HS and toe off - Goals Goal 1:: Decrease R foot pain x 50% to aid with sleep Goal Time Frame: 4-6 Weeks Goal 2:: Increase R ankle DF ROM x 10-15 degrees to aid with restoring a more normalized gait pattern Goal Time Frame: 4-6 Weeks Goal 3:: Increase R ankle strength x 1 grade to aid with stair negotiation Goal Time Frame: 4-6 Weeks Goal 4:: I with HEP Goal Time Frame: 4-6 Weeks - Rehabilitation Potential Physical Therapy Diagnosis: R foot pain, weakness, and limited ROM secondary to posterior tibial tendon repair with gastroc recession Rehabilitation Potential: Good - Anticipated Interventions Patient/Client Instruction: Educate patient on: Condition, Plan of Care For the Purpose of:: To improve self management Therapeutic Exercise to Include: Strength training, Endurance training, Balance training, Flexibilty training, Gait and locomotor training, Passive ROM, Active ROM For the Purpose of:: To decrease pain, To increase ROM, To improve muscle performance and motor function Cryotherapy (ice pack, ice massage): Yes For the Purpose of:: To decrease pain Thank you for the opportunity to evaluate your patient. For Medicare and Medicare HMO plans, please review the plan of care and approve it. It will need to be FAXED BACK to us at [phone] for Medicare purposes. Please let me know if there are questions or concerns regarding this plan of care. Physician Signature: Date: <Electronically signed by Cayetano Venegas PT, ATC> 03/30/18 1049 CC: Ney Medrano DPM; Sandip Douglas DO [facility] Signed For Medicare only, by signing this I certify the plan of care. Physicians Signature Date OPERATIVE REPORT Observed: 02/23/2018 Status: F Source: [place] 1:19 PM [facility] REPOSITORY [facility] Medical Records Department [address] [place] [address] Operative Report 01/26/18 1425 MR#: [id number] Acct: [id number] Name: MADISON GREER Rep #: [id number] : 1975 42 From: Ney Medrano DPM PCP: Sandip Douglas DO Status: [facility] [facility] Report of Operation Date of Procedure: 01/26/18 Pre-Operative Diagnosis: Posterior tibial tendon tear/tendinosis, pes planovalgus, posterior tibial tendon dysfunction, gastrocsoleus equinus right foot Post-Operative Diagnosis: Same Surgery/Procedure Performed:: Debridement and repair of the posterior tibial tendon, flexor digitorum longus tendon transfer, calcaneal osteotomy, and endoscopic gastrocsoleus recession, 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 Rosangela Watson Type of Anesthesia:: MAC, Spinal Specimen's removed: Debrided posterior tibial tendon (right) sent to pathology Estimated Blood Loss (mL): 50mL Description of Procedure: Indications: This is a 42 year old female who has continued right foot pain due to dysfunction of the posterior tibial tendon, flexible pes planovalgus, partial tear and tendinosis and tenosynovitis of the posterior tibial tendon. She continues to have pain despite immobilization, bracing, rest, activity modifications, icing, and anti-inflammatories. She has elected to undergo surgical intervention as noted above. The procedures were reviewed with her, reviewed the rationale of the procedures as well as the possible benefits, risks, goals, expectations, alternative options, and typical healing/post operative recovery course. This was discussed with her in detail, she expressed understanding and agreement, she elected to proceed forward. All of her questions were answered. The consent forms were reviewed with her, and she freely signed them. No guarantees were given nor implied. Operative Procedure: The patient was brought back into the operating room. The patient received spinal anesthesia per the anesthesia team. The patient was placed on the operating table in the supine position. Patient was carefully secured to the operating room table with a safety belt around her waist. A time out was performed and the patient was properly identified and the surgical plan was confirmed. The patient received MAC anesthesia per the anesthesia team. The patient received 2 grams of intervenous Cefazolin for antibiotic prophylaxis. A well padded pneumatic tourniquet was applied around the patient's right thigh. The right lower extremity was scrubbed, prepped, and draped in the usual aseptic fashion. Attention was directed to the right foot, there was noted to be Stage 2 flexible pes planovalgus present with gastrocsoleus equinus present. There was -3 degrees dorsiflexion with knee extended and less than 10 degrees with knee flexed. The right foot was elevated for 3 minutes and the right thigh pneumatic tourniquet was inflated to 300mmHg. Attention was directed to the hindfoot. An oblique linear skin incision was made to the lateral aspect of the heel overlying the calcaneal wall. Careful direction was completed down to the lateral calcaneal wall being sure to avoid the sural nerve and peroneal tendons. A calcaneal osteotomy was planned, and was made using a powered sagittal saw, going through the body of the calcaneus from lateral to medial and from posterior proximal to anterior distal. The osteotomy was finished with an osteotome through the medial wall of the calcaneus being sure to avoid the medial tendons and neurovascular bundle. The posterior calcaneus was gently freed up and translated medially. Clinically it was displaced medially 6mm. It was fixated using one cannulated 7.0mm Arthrex screw. A small skin incision was made to the posterior heel with careful dissection completed down to the cortex of the calcaneus. It was placed using standard rigid open reduction internal fixation technique. The osteotomy was very stable with good fixation, there was good bone to bone compression. Proper placement of the screw was confirmed using intra operative fluoroscopy. The ledge of bone on the lateral calcaneal wall at the level of the osteotomy was gently smoothed down. The sites was flushed out with copious amounts of normal saline solution. The subcutaneous tissue was reapproximated using 3-0 Vicryl. The skin was reapproximated using 4-0 Monocryl. Attention was directed to the medial foot and ankle. A curvilinear skin incision was made along the course of the posterior tibial tendon from the medial ankle to just distal to the navicular tuberosity. Careful dissection was completed through the subcutaneous tissue to the posterior tibial tendon sheath. The posterior tibial tendon sheath was opened with a dissection scissor. The posterior tibial tendon was visualized, there was significant tenosynovitis, as well as tendinosis with hypertrophy. There was noted to be a longitudinal partial tear of the posterior tibial tendon as well. This involved <50% and the tendon appeared to be salvageable. It was intact at it's insertion point on the navicular tuberosity. The unhealthy tissue was debrided away, removing the tenosynovitis and tendinosis, this was debrided with a 15 scalpel blade, and the debrided tissue was sent to pathology. The longitudinal tear of the posterior tibial tendon was repaired and tubularized using 3-0 Vicryl. The flexor digitorum longus tendon sheath was visualized and opened using a dissecting scissor. The tendon was noted to be intact, and it was noted to be healthy and viable, however it was noted to be small in diameter. The was related proximal to the knot of Rob. A drill hole was placed through the navicular starting from plantar medial and exited dorsal lateral. Proper placement of the screw was confirmed using intra operative fluoroscopy. The flexor digitorum tendon was routed through the drill hole in the navicular and pulled to the appropriate tension, and a 4.75mm Arthrex tenodesis screw was placed holding the flexor digitorum longus tendon in/to the navicular for the transfer. It was holding very well and in good position. The site was flushed out with copious amounts of normal saline solution. The tendon sheaths were reapproximated using 3-0 Vicrul. The subcutaneous tissue was reapproximated using 3-0 Vicryl. The skin was reapproximated using 4-0 Monocryl. Attention was directed just distal to the medial head of the gastrocnemius muscle belly on the posterior leg. A 1cm linear skin incision was made using a 15 blade at this level at the medial aspect. Careful blunt dissection was completed down to the gastrocsoleus aponeurosis. A fascial elevator was used and a plane was complete between the subcutaneous tissue and the posterior aspect of the gastrocsoleus aponeurosis, and a 1cm linear skin incision was made using a 15 blade at the lateral aspect of the leg to create the lateral portal. The fascial elevator was removed. An obturator and slotted cannula was placed through the medial and lateral portals. The obturator was removed and the slot was faced posteriorly. The sural nerve and the small saphenous vein were visualized confirming they were out of the way. The slot was rotated to face anteriorly and the gastrocsoleus aponeurosis was visualized. Using a hook blade the gastrocsoleus aponeurosis was released, being sure not to cut into the soleus muscle belly. The underlying soleus muscle belly was visualized. There was now noted to be +10 degrees of ankle dorsiflexion with knee extended, and +10 with the knee flexed. The obturator was placed in the cannula, and they were both removed. The site was flushed out with copious amounts of normal saline solution. The skin was reapproximated using 4-0 Monocryl. The pneumatic tourniquet was deflated and there was immediate return of warm and perfusion to the left lower extremity, with normal CFT to all of the toe and normal temperature present. The foot was load, and it was noted the foot was in good alignment with correction of the stage 2 flatfoot. There was smooth normal range of motion of the foot and ankle, with no popping, clicking or crepitus noted. Cavilon was painted to the edges of the suture skin incisions. Steri-strips were applied across the suture skin incisions. A dressing was applied which consisted of Betadine soaked adaptic, 4x4 gauze, Kerlix, renny bandage and a well padded below knee posterior splint secured with renny bandages. The patient tolerated the above operative procedure well and the anesthesia well with no complications. The patient was transported from the operative room to the recovery room with vital sign stable and in good condition. Post operative orders were placed. Post operative instructions were reviewed with patient and her mother who was with her today - both verbal and written. Keep feet elevated for at least 50 minutes of every hour, keep dressings clean, dry, and intact. No weightbearing right foot. Percocet 5mg/325mg 1-2 tabs PO q 4 hours PRN pain. Xarelto 10mg PO once daily was prescribed for DVT prophylaxis. Patient to follow up in 1 week, or sooner if needed. P ost operative xrays were obtained the the recovery room, 3 view foot and 2 view calcaneus. These images were reviewed which confirmed calcaneal osteotomy with screw fixation intact, proper placement of the screw and good bone to bone contact. There is noted drill hole through the navicular for the tendon transfer. No evidence of complications. Grafts/Implants Used: 7.0mm Arthrex screw, 4.75mm Arthrex tenodesis screw 02/23/18 1319 <Electronically signed by Ney Medrano DPM> Date Ney Medrano DPM CC: Ney Medrano DPM; Sandip Douglas DO Signed 12 LEAD ELECTROCARDIOGRAM Observed: 01/30/2018 Status: F Source: [place] 2:08 PM [facility] REPOSITORY [facility] Cardiovascular Services [address] [place] [address] 12 Lead EKG 01/26/18 0849 MR#: [id number] Acct: [id number] Name: MADISON GREER Rep #: [id number] : 1975 42 From: Ruben Lora MD Attending Dr: Ney Medrano DPM Status: DEP [facility] Ordering Dr: Darrell Galindo MD Date: 01/26/18 Location: [facility] Sex: F C Admitted: Test Reason : PRE-OP Blood Pressure : / mmHG Vent. Rate : 064 BPM Atrial Rate : 064 BPM P-R Int : 116 ms QRS Dur : 082 ms QT Int : 404 ms P-R-T Axes : 028 019 -03 degrees QTc Int : 416 ms Normal sinus rhythm Normal ECG When compared with ECG of 17-DEC-2012 11:01, No significant change was found Confirmed by RUBEN LORA ([id number]), assignment desk editor SARAH SLADE ([id number]) on 01/30/2018 2:08:09 PM Referred By: Ney Medrano Confirmed By:RUBEN LORA 01/30/18 1408 Date Ruben Lora MD CC: Darrell Galindo MD; Ney Medrano DPM; Sandip Douglas DO Signed DISCHARGE INSTRUCTION Observed: 01/26/2018 Status: F Source: [place] 2:25 PM [facility] REPOSITORY [facility] Medical Records Department [address] [place] [address] Instructions for Home/Discharge Instructions 01/26/18 1423 MR#: [id number] Acct: [id number] Name: MADISON GREER Rep #: [id number] : 1975 42 From: Ney Medrano DPM PCP: Sandip Douglas DO Status: REG SD Discharge Diet: Light diet - advance as tolerated Discharge Activity: May Not Drive Weight Bearing Status: No weight bearing - No weightbearing right foot Keep extremity elevated above heart level: Right Leg - Keep right foot elevated for at least 50 minutes of every hour Call your doctor if your incision/area has: Continuous Slow Oozing, Sudden Increased Bleeding, Foul Smelling Discharge Call your doctor if you observe: Fever of 101 or Higher, Shortness of breath, Chest pain, Calf discomfort, Uncontrolled pain Cleanse incision/area with: Do not get Incision Wet, Keep Dressing Clean AND Dry Allergies/Adverse Reactions: Allergies SEASONAL Allergy (Uncoded 01/24/18 14:44) Other Medications to take at Discharge citalopram 20 mg tablet 20 mg PO QDAY 11/01/17 desogestrel 0.15 mg-ethinyl estradiol 0.03 mg tablet 1 tab PO QDAY #28 tab 12/27/17 Amoxicillin/Potassium Clav [Augmentin 500-125 Tablet] 1 ea PO Q12H #14 tab 01/26/18 Oxycodone HCl/Acetaminophen [Percocet 5/325] 1 - 2 tab PO Q4H PRN PRN 3 Days #40 tab 01/26/18 Rivaroxaban [Xarelto] 10 mg PO DAILY #30 tab 01/26/18 The following prescriptions were given: Oxycodone HCl/Acetaminophen [Percocet 5/325] 1 - 2 tab PO Q4H PRN PRN 3 Days #40 tab PRN Reason: Pain Amoxicillin/Potassium Clav [Augmentin 500-125 Tablet] 1 ea PO Q12H #14 tab Rivaroxaban [Xarelto] 10 mg PO DAILY #30 tab Primary Care Physician: Sandip Douglas DO [Primary Care Provider] - Test Results: Test results from this visit will be discussed in further detail at your follow-up appointment, if applicable. Please Follow Up With: Ney Medrano DPM When: within 1 week or sooner if needed 01/26/18 1425 <Electronically signed by Ney Medrano DPM> Date Ney Medrano DPM CC: Sandip Douglas DO FOOT MIN 3 VIEWS Observed: 01/26/2018 Status: F Source: [place] 2:22 PM [facility] REPOSITORY [facility] Imaging Services [address] [place] [address] [place] [address] Foot min 3 Views MR#: [id number] Acct: [id number] Name: MADISON GREER Rep #: [id number] : 1975 F 42 From: Rob Guerrero DO PCP: Sandip Douglas DO Status: REG [facility] Study: Foot min 3 Views Date of Exam: 01/26/18 Exam# [id number] Ordering Dr: Ney Medrano DPM STUDY: X-RAY - RIGHT FOOT CLINICAL: Female, 42 years old. Post op. TECHNIQUE: 3 view(s) of the foot. COMPARISON: Calcaneus, January 26, 2018. MRI of the right ankle, November 29, 2017. FINDINGS: There is a cortical screw transfixing the length of the calcaneus. The fractures appear to be in normal alignment. Normal talus and tarsal bones. Normal visualized subtalar, talonavicular, calcaneocuboid, tarsal and tarsometatarsal articulations. Normal metatarsi. Normal metatarsophalangeal joint of the great toe. Normal tibial and fibular sesamoid bones. Normal interphalangeal joint of the great toe. Normal phalanges of the great toe. Normal second through fifth metatarsophalangeal joints. Normal interphalangeal joints and phalanges of the lesser toes. Soft tissues thickening and air about the hindfoot. RAD/Foot min 3 Views IMPRESSION: Status post internal fixation of a calcaneal fracture. Electronically Signed: Rob Guerrero DO at 15:18 EDT Tel [phone], Service support , CC: Ney Medrano DPM; Sandip Douglas DO [employer]: Signed CALCANEUS MIN 2 VIEWS Observed: 01/26/2018 Status: F Source: [place] 2:22 PM [facility] REPOSITORY [facility] Imaging Services [address] [place] [address] Calcaneus min 2 Views MR#: [id number] Acct: [id number] Name: MADISON GREER Rep #: [id number] : 1975 F 42 From: Rob Guerrero DO PCP: Sandip Douglas DO Status: REG [facility] Study: Calcaneus min 2 Views Date of Exam: 01/26/18 Exam# [id number] Ordering Dr: Ney Medrano DPM STUDY: X-RAY - RIGHT CALCANEUS REASON FOR EXAM: Female, 42 years old. Postop. TECHNIQUE: 2 view(s) of the calcaneus were obtained. COMPARISON: Right foot, January 26, 2018. FINDINGS: There is a metallic screw transfixing the length of the calcaneus. The calcaneus appears otherwise normal. The fractures in normal alignment. Normal articulations of the hindfoot. A semiopaque splint is seen along the dorsum of the foot and posterior leg. RAD/Calcaneus min 2 Views IMPRESSION: Status post internal fixation of a calcaneal fracture. Electronically Signed: Rob Guerrero DO at 15:22 EDT Tel [phone], Service support , CC: Ney Medrano DPM; Sandip Douglas DO [employer]: Signed TENDON/OR TENDON Observed: 01/26/2018 Status: F Source: [place] 10:00 AM [facility] REPOSITORY Patient: MADISON GREER : 1975 (42/F) Acct Num: [id number] Phys: Ney Medrano DPM Unit Num: [id number] Loc: [facility] Specimen: [id number] Received: 01/26/18 - 1555 Spec Type: TENDON TISSUES TISSUES: Tendon and tendon sheath, NOS GROSS DESCRIPTION Received in fixative is one container labeled with the patient's name and designated debridement right posterior tibial tendon. The specimen consists of multiple pieces of joyce-white soft tissue that in aggregate measure 3 x 2.5 x 0.3 cm. The entire specimen is submitted in one cassette. / ANUPAM:faustino 01/29/18 TC :5 CPT: 02268 HEADER OPERATION: Debridement, repair posterior tibial tendon tear PRE-OP DIAGNOSIS: Posterior tibial tendon dysfunction; posterior tibial tendonitis and tear; pes planus, gastrocsoleus equinus contracture TISSUE SUBMITTED: Debridement right posterior tibial tendon MICROSCOPIC DESCRIPTION Slides are reviewed. MICROSCOPIC DIAGNOSIS Right posterior tibial tendon: Pieces of dense fibroconnective tissue with reactive changes. SJ:faustino 01/30/18 Signed Nader Sultana 01/30/18 <signature on file> Performed By: #### PTESH #### [facility] [address] [place], [address] ,URINE Collected: 01/26/2018 Status: F Source: [place] 8:45 AM [facility] REPOSITORY TYPE CODE TESTS RESULT OUT OF REFERENCE UNITS RANGE LAB L400.8000 Negative Normal HCGUQUAL Negative Result Comment: Very dilute urine specimens, as indicated by a low specific gravity, may not contain international sales representative levels of hCG. If is still suspected, a first morning urine specimen should be collected 48 hours later and tested. Performed By: #### L400.7600 #### [facility] [address] [place], [address] CALCANEUS MIN 2 VIEWS Observed: 01/25/2018 Status: F Source: [place] 11:26 PM [facility] REPOSITORY [facility] Imaging Services [address] [place] [address] Calcaneus min 2 Views MR#: [id number] Acct: [id number] Name: MADISON GREER Rep #: [id number] : 1975 F 42 From: Daniel Gifford MD PCP: Sandip Douglas DO Status: [facility] Study: Calcaneus min 2 Views Date of Exam: 01/26/18 Exam# [id number] Ordering Dr: Ney Medrano DPM STUDY: X-RAY - RIGHT CALCANEUS REASON FOR EXAM: Female, 42 years old. Osteotomy. TECHNIQUE: 4 view(s) of the calcaneus were obtained. COMPARISON: MRI 11/29/2017. FINDINGS: There are 4 Limited [id number] intraoperative C-arm images which show a single orthopedic screw along the length of the calcaneus fixating a previous osteotomy of the posterior process into anatomic alignment and position. Correlate with procedure note. Electronically Signed: Daniel Gifford MD at 16:53 EDT , Service support , RAD/Calcaneus min 2 Views CC: Ney Medrano DPM; Sandip Douglas DO [employer]: Signed CBC W/DIFF, AUTOMATED Collected: 01/19/2018 Status: F Source: [place] 9:50 AM [facility] REPOSITORY TYPE CODE TESTS RESULT OUT OF RANGE REFERENCE UNITS LAB L100.1000 4.4-11.0 K/mm3 Normal WBC 8.5 LAB L100.1200 4.2-5.4 M/mm3 Low RBC 4.18 LAB L100.1300 12.0-15.0 g/dl Normal HGB 12.8 LAB L100.1400 37-47 % Normal HCT 38.1 LAB L100.1500 81-99 fL Normal MCV 91.1 LAB L100.1600 27.0-32.0 pg Normal MCH 30.6 LAB L100.1700 32-36 g/gl Normal MCHC 33.6 LAB L100.1810 11.6-14.6 % Normal RDW CV 12.3 LAB L100.1820 35.1-43.9 fl Normal RDW SD 40.2 LAB L100.1900 150-450 K/mm3 Normal PLT 318 LAB L100.2000 6.2-12.0 fl Normal MPV 10.1 LAB L100.2100 47-70 % Normal NEUT% 64.9 LAB L100.2200 19-41 % Normal LY% 24.9 LAB L100.2300 0-10 % Normal MONO% 6.4 LAB L100.2400 0-5 % Normal EO% 3.2 LAB L100.2500 0-1 % Normal BASO% 0.4 LAB L100.2550 0.0-0.9 % Normal IM GRAN % 0.200 Result Comment: IG% - Immature Granulocytes (promyelocytes, myelocytes and metamyelocytes) > 1% indicates that a LEFT SHIFT is Present. LAB L100.2620 2.0-7.7 X10 3/uL Normal Absolute Neut 5.5 LAB L100.2720 0.83-4.51 X10 3/ul Normal Absolute Lymph 2.11 Performed By: #### L100.0100 #### [facility] [address] [place], [address] COMPREHENSIVE METABOLIC Collected: 01/19/2018 Status: F Source: [facility] 9:50 AM [facility] REPOSITORY TYPE CODE TESTS RESULT OUT OF RANGE REFERENCE UNITS LAB L501.0100 74-106 mg/dL Normal GLU 88 Result Comment: Please note revised GLUCOSE reference range effective 2017. LAB L501.1000 7-18 mg/dL Normal BUN 15 LAB L501.1100 0.55-1.02 mg/dL Normal CREAT,SERUM 0.71 Result Comment: The validity of the calculated GFR AND GFRAA in patients over 70 years has not been determined. Clinical correlation is essential. LAB L501.1110 >60 mL/min Normal EST GFR 97 Result Comment: Non- GFR Calc LAB L501.1115 >60 mL/min Normal EST GFR - AA 117 Result Comment: GFR Calc LAB L501.1300 10-20 RATIO High BUN/CRE 21.2 LAB L501.1500 6.4-8.2 g/dL T Normal PROT 7.2 LAB L501.1800 3.2-5.0 g/dL Normal ALB 4.0 LAB L501.1950 2.2-4.2 g/dL Normal GLOB 3.2 LAB L501.2000 0.9-2.4 RATIO Normal A/G 1.2 LAB L501.2200 8.5-10.1 mg/dL CA Normal 8.9 LAB L501.4100 15-37 U/L Normal AST 16 LAB L501.4305 45-117 U/L Normal ALK P 60 LAB L501.4405 13-56 U/L Normal ALT 19 LAB L501.4600 0.20-1.00 mg/dL T Normal BILI 0.50 LAB L501.5300 136-145 mmol/L NA Normal 139 LAB L501.5600 3.5-5.1 mmol/L K Normal 4.5 LAB L501.5900 98-107 mmol/L CL Normal 107 LAB L501.6100 21.0-32.0 mmol/L Normal CO2 24.0 LAB L501.6200 5-15 Normal GAP 8 Performed By: #### L500.4050 #### [facility] [address] [place], [address] BOILER INSPECTOR OFFICE VISIT Observed: 12/24/2017 Status: F Source: [place] REPORT 3:09 PM [facility] REPOSITORY [facility] [address] [place] [address] OFFICE VISIT Date of Service: 12/21/17 MR#: [id number] Acct: [id number] Name: MADISON GREER Rep #: [id number] : 1975 Provider: Zhanna Ambrose MD Age/Sex: 42/F Location: [facility] Status: Signed Intake Vital Signs12/21/17 Height 5 ft 3 in 12/21/17 Weight: 172 lb 12/21/17 Body Mass Index (BMI) 30.4 12/21/17 Blood Pressure 94/55 Intake Visit Reasons: Discuss ablation 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: No Is patient in pain?: No Allergies No Known Allergies Allergy (Verified 12/21/17 10:30) Medications citalopram 20 mg tablet 20 mg PO QDAY 11/01/17 [History Confirmed 12/21/17] desogestrel 0.15 mg-ethinyl estradiol 0.03 mg tablet 1 tab PO QDAY #28 tab 12/24/17 [Rx Confirmed 12/24/17] Patient : No : No PFSH Medical History Endometriosis (Acute) Surgical History S/P (Resolved) Social History adopted: Yes Smoking Status: Current every day smoker alcohol intake: never substance use type: does not use caffeine: Yes what type of physical activity do you participate in: aerobics frequency: 3-4 times per week seatbelt use: always do you feel safe at home: Yes additional social history: - [employer] 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 she has had issues for the last year. she has a history of endometriosis and had one c section. she just quit smoking and is not interested in an iud. she changes a pad every half and hour at the heaviest. cbc tsh normal us showed 2 q cm fibroids. Pregancy History 1 Elective abortions Hx Para 1 Spontaneous abortions Past Pregnancies Del. DatName GA/WeeksOutcome Route [facility] LocaProviderFOB e ht en tn Unknown Gris-20 12 ROS Const Constitutional: Reports system reviewed and no additional complaints, except as docu GI GI: Reports as per HPI : Reports as per HPI Exam Const General: cooperative, healthy appearing, comfortable, no acute distress, well developed Nutritional Appearance: average body habitus Orientation: alert HENMT Head: normal to inspection, normocephalic Ears: hearing grossly normal bilaterally, external ears normal Nose: external nose normal, nares normal Face and sinus: normal facial exam Neck Neck: normal visual inspection, trachea midline, no lymphadenopathy Thyroid: thyroid normal Resp Effort AND Inspection: normal respiratory effort Musc Other: gross motor intact no deficits, full bilateral strength Skin General: no rashes or lesions noted Neuro Motor: muscle tone normal throughout Assessment AND Plan Problems 1. Abnormal uterine bleeding N93.9 apri ordered, discussed she is not the best ablation candidate due to pain, discussed lysteda, iud, or hysterectomy Plan see problem list details. fu 3 months after starting apri Medications New: Coding Level of Care Code Off vis,est,level 4 Diagnoses Abnormal uterine bleeding N93.9 12/24/17 1509 <Electronically signed by Zhanna Ambrose MD> Date Zhanna Ambrose MD Cosigner Signature: Date (if applicable) CC: LOWER EXT JOINT ONLY Observed: 11/29/2017 Status: F Source: [place] (ROUTINE) 12:43 PM [facility] REPOSITORY [facility] Imaging Services [address] [place] [address] Lower Ext Joint Only (Routine) MR#: [id number] Acct: [id number] Name: MADISON GREER Rep #: [id number] : 1975 F 42 From: Steve Connolly MD PCP: Sandip Douglas DO Status: REG CLI Study: Lower Ext Joint Only (Routine) Date of Exam: 11/29/17 Exam# [id number] Ordering Dr: Ney Medrano DPTom STUDY: MRI RIGHT ANKLE WITHOUT CONTRAST REASON FOR EXAM: Medial right heel and ankle pain for 6 months. TECHNIQUE: Standardized fat and water weighted pulse sequences were obtained in all 3 orthogonal planes. COMPARISON: None. FINDINGS: Normal subcutis adipose space. There is fluid in the proximal posterior tibialis and flexor digitorum longus tendon sheaths (inversion recovery sagittal images 7-10). There is tendinosis and partial tear of the perimalleolar posterior tibialis tendon (T2 axial images 13-16). The flexor digitorum longus tendon is morphologically normal. Normal flexor hallucis longus tendon. Normal peroneus longus and brevis tendons. Normal tibialis anterior tendon. Normal extensor hallucis longus tendon. Normal extensor digitorum longus tendons. Normal Achilles tendon and teno-osseous insertion. Normal plantar fascia. Normal plantar calcaneal tubercles. Normal intrinsic muscles of the rearfoot. Normal distal tibiofibular syndesmotic ligamentous complex. Normal lateral ligamentous complex. Normal subtalar ligaments and sinus tarsi. Normal deltoid ligamentous complexes. Normal plantar calcaneonavicular (spring) ligament. Normal tibiotalar articulation. Normal talar dome. There is a small posterior subtalar joint effusion (inversion recovery sagittal images 11-13). There is a small talonavicular joint effusion (inversion recovery sagittal image 9). Normal calcaneocuboid articulation. Normal navicular-cuneiform articulations. There is cystic change of the superior body of the calcaneus (inversion recovery sagittal images 13, 14). MRI/Lower Ext Joint Only (Routine) IMPRESSION: Partial tear, tendinosis and tenosynovitis of the posterior tibialis tendon. Flexor digitorum longus tenosynovitis. Small posterior subtalar and talonavicular joint effusions. Electronically Signed: Steve Connolly MD at 14:24 EDT Tel , Service support , CC: Ney Medrano DPM; Sandip Douglas DO [employer]: Signed PELVIC (NON ) Observed: 11/03/2017 Status: F Source: [place] 12:45 PM [facility] REPOSITORY [facility] Imaging Services [address] [place] [address] Pelvic (Non ) MR#: [id number] Acct: [id number] Name: MADISON GREER Rep #: [id number] : 1975 F 42 From: Lela Gilbert MD PCP: Sandip Douglas DO Status: REG CLI Study: Pelvic (Non ) Date of Exam: 11/03/17 Exam# [id number] Ordering Dr: Juliane Carpio PARTS PICKERRisa STUDY: ULTRASOUND TRANSVAGINAL CLINICAL: Female, 42 years old. Menorrhagia. Painful intercourse. TECHNIQUE: Transvaginal COMPARISON: None. FINDINGS: Normal uterine size measuring 9.4 cm in maximal craniocaudal dimension. Within the anterior uterine fundus there is an intramural hypoechoic rounded focus consistent with underlying fibroid which measures 1.0 x 1.0 x 0.9 cm. There is an additional intramural fibroid within the anterior lower uterine segment which measures 0.8 x 0.7 x 0.6 cm. Normal endometrial thickness measuring 7 mm. There are no endometrial masses, and there is no fluid in the endometrial cavity. Normal uterine cervix. Normal right ovary, measuring 3.2 x 2.8 x 2.0 cm. There is a simple cyst which measures up to 1.9 cm. Normal left ovary, measuring 2.8 x 2.9 x 1.9 cm. There is a simple cyst which measures up to 1.2 cm. There is no free fluid in the pelvis. Polycystic ovary disease: No. US/Pelvic (Non ) IMPRESSION: Intramural uterine fibroids. 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 TRANSVAGINAL Observed: 11/03/2017 Status: F Source: [place] NON- 12:45 PM [facility] REPOSITORY [facility] Imaging Services [address] [place] [address] Transvaginal Non- MR#: [id number] Acct: [id number] Name: MADISON GREER Rep #: [id number] : 1975 F 42 From: Lela Gilbert MD PCP: Sandip Douglas DO Status: REG CLI Study: Transvaginal Non- Date of Exam: 11/03/17 Exam# [id number] Ordering Dr: Juliane Carpio PARTS PICKER-Fercho STUDY: ULTRASOUND TRANSVAGINAL CLINICAL: Female, 42 years old. Menorrhagia. Painful intercourse. TECHNIQUE: Transvaginal COMPARISON: None. FINDINGS: Normal uterine size measuring 9.4 cm in maximal craniocaudal dimension. Within the anterior uterine fundus there is an intramural hypoechoic rounded focus consistent with underlying fibroid which measures 1.0 x 1.0 x 0.9 cm. There is an additional intramural fibroid within the anterior lower uterine segment which measures 0.8 x 0.7 x 0.6 cm. Normal endometrial thickness measuring 7 mm. There are no endometrial masses, and there is no fluid in the endometrial cavity. Normal uterine cervix. Normal right ovary, measuring 3.2 x 2.8 x 2.0 cm. There is a simple cyst which measures up to 1.9 cm. Normal left ovary, measuring 2.8 x 2.9 x 1.9 cm. There is a simple cyst which measures up to 1.2 cm. There is no free fluid in the pelvis. Polycystic ovary disease: No. US/Transvaginal Non- IMPRESSION: Intramural uterine fibroids. 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 OFFICE VISIT Observed: 11/01/2017 Status: F Source: [place] REPORT 11:37 AM [facility] [address] [place] [address] OFFICE VISIT Date of Service: 11/01/17 MR#: [id number] Acct: [id number] Name: MADISON GREER Rep #: [id number] : 1975 Provider: YOLIS Carpio Age/Sex: 42/F Location: [facility] Status: Signed Intake Vital Signs11/01/17 Height 5 ft 3 in 11/01/17 Weight: 167 lb 4 oz 11/01/17 Body Mass Index (BMI) 29.6 11/01/17 Blood Pressure 113/69 Intake Visit Reasons: MENORRHAGIA 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: No Is patient in pain?: Yes Pain scale (1-10): 5 Allergies No Known Allergies Allergy (Verified 11/01/17 10:15) Medications citalopram 20 mg tablet 20 mg PO QDAY 11/01/17 [History Confirmed 11/01/17] varenicline 0.5 mg tablet 0.5 mg PO QDAY 11/01/17 [History Confirmed 11/01/17] Is last menstrual period known: Yes Last Menstral Period: 10/25/17 Post menopausal: No Patient : No : [facility] History Endometriosis (Acute) Surgical History S/P (Resolved) Social History adopted: Yes Smoking Status: Current every day smoker alcohol intake: never substance use type: does not use caffeine: Yes what type of physical activity do you participate in: aerobics frequency: 3-4 times per week seatbelt use: always do you feel safe at home: Yes additional social history: - [employer] 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 Denies abnormal pap history. and denies STD concerns. Spouse with vasectomy Female Reproductive History Last Menstral Period: 10/25/17 Pregancy History 1 Elective abortions Hx Para 1 Spontaneous abortions Past Pregnancies Del. DatName GA/WeeksOutcome Route [facility] LocaProviderFOB e ht en ia tn Unknown Gris-20 12 ROS Const Constitutional: Reports system reviewed and no additional complaints, except as docu GI GI: Denies abdominal pain or change in bowel habits Exam Const General: well developed, cooperative Nutritional Appearance: well nourished Orientation: oriented x3 Chest Breast inspection: normal inspection of the breasts Breast palpation: normal palpation of the breasts General: bladder normal to palpation External Female Exam: normal external appearance, normal appearance of the urethra Urethra: normal appearance of the urethra Speculum Exam - Vagina: normal appearance of the vagina, normal vaginal discharge, nontender, no lesions Speculum Exam - Cervix: normal appearance of the cervix, other (smooth, nonfriable; pap collected) Bimanual Exam- Vagina AND Uterus: bladder normal to palpation, normal bimanual exam, uterine size normal, uterine shape normal, uterine mobility normal, uterus non-tender Bimanual Exam- Adnexa, other: normal adnexae, no adnexal masses, adnexae non-tender Assessment AND Plan Problems 1. Menorrhagia with regular cycle N92.0 2. Pap smear for cervical cancer screening Z12.4 3. Encounter for screening mammogram for malignant neoplasm of breast Z12.31 Plan Completed breast and pelvic exam Proceed with US and call results. Consider mirena IUD or ablation dependent on US Pap thin prep pap with HPV Mammogram ordered and due in Mar 2018 Contraception spouse with vasectomy Juliane Carpio FILM EDITOR Orders Orders: Coding Level of Care Code Off vis,new,level 3 Diagnoses Menorrhagia with regular cycle N92.0 Pap smear for cervical cancer screening Z12.4 Encounter for screening mammogram for malignant neoplasm of breast Z12.31 11/01/17 1137 <Electronically signed by Juliane COOPER> Date Juliane PAULC Cosigner Signature: Date (if applicable) CC: PAP IG HPV 16/18,45 Collected: 11/01/2017 Status: F Source: [place] 10:30 AM [facility] REPOSITORY Order Comment: CYTOLOGY INFORMATION: - CLINICAL INFORMATION: HYSTERECTOMY - DATE LMP/MENOPAUSE: LMP - COLLECTION VIAL: Thin Prep Vial - 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 of containers..01 ThinPrep Vial TYPE CODE TESTS RESULT OUT OF RANGE REFERENCE UNITS LAB L7400.0800 . Normal DIAGN Comment Result Comment: NEGATIVE FOR INTRAEPITHELIAL LESION AND MALIGNANCY. LAB L7400.0900 . Normal ADEQ Comment Result Comment: Satisfactory for evaluation. Endocervical and/or squamous metaplastic cells (endocervical component) are present. LAB L7400.1400 . Normal PERFORM Comment Result Comment: Piper Dobbins, Stoner Out (ASCP) LAB L7400.2575 . Normal TEST METHOD Comment Result Comment: This liquid based ThinPrep(R) pap test was screened with the use of an image guided system. LAB L7400.2600 . Normal . COMM LAB L7400.2700 . Normal PAPSMR Comment Result Comment: The Pap smear is a screening test designed to aid in the detection of premalignant and malignant conditions of the uterine cervix. It is not a diagnostic procedure and should not be used as the sole means of detecting cervical cancer. Both false-positive and false-negative reports do occur. LAB L7400.2760 Negative Normal HPV APTIMA, Negative HR Result Comment: This test detects fourteen high-risk HPV types (16/18/31/33/35/39/45/ 51/52/56/58/59/66/68) without differentiation. Performed at: - [facility] [id number] Workforce Manager: Sherri Obregon MD, Phone: [phone] Performed at: =G - [facility] [address] [id number] Workforce Manager: Sherri Obregon MD, Phone: [phone] Performed By: #### L7400.0280 #### [facility] (refer to report for specific site) refer to report for address and phone number THYROID STIM HORMONE Collected: 10/24/2017 Status: F Source: MARIELA (TSH) 11:57 AM [facility] REPOSITORY TYPE CODE TESTS RESULT OUT OF RANGE REFERENCE UNITS LAB L501.9520 0.358-3.74 uIU/mL Normal TSH 0.84 Performed By: #### L501.9520 #### [facility] Hospital[facility] Dooley[facility] [place], [place], [id number] CBC W/DIFF, AUTOMATED Collected: 10/24/2017 Status: F Source: [place] 11:57 AM [facility] REPOSITORY TYPE CODE TESTS RESULT OUT OF RANGE REFERENCE UNITS LAB L100.1000 4.4-11.0 K/mm3 Normal WBC 10.2 LAB L100.1200 4.2-5.4 M/mm3 Normal RBC 4.37 LAB L100.1300 12.0-15.0 g/dl Normal HGB 13.3 LAB L100.1400 37-47 % Normal HCT 40.5 LAB L100.1500 81-99 fL Normal MCV 92.7 LAB L100.1600 27.0-32.0 pg Normal MCH 30.4 LAB L100.1700 32-36 g/gl Normal MCHC 32.8 LAB L100.1810 11.6-14.6 % Normal RDW CV 12.9 LAB L100.1820 35.1-43.9 fl Normal RDW SD 43.9 LAB L100.1900 150-450 K/mm3 Normal PLT 297 LAB L100.2000 6.2-12.0 fl Normal MPV 10.1 LAB L100.2100 47-70 % Normal NEUT% 66.1 LAB L100.2200 19-41 % Normal LY% 24.1 LAB L100.2300 0-10 % Normal MONO% 6.1 LAB L100.2400 0-5 % Normal EO% 3.1 LAB L100.2500 0-1 % Normal BASO% 0.3 LAB L100.2550 0.0-0.9 % Normal IM GRAN % 0.300 Result Comment: IG% - Immature Granulocytes (promyelocytes, myelocytes and metamyelocytes) > 1% indicates that a LEFT SHIFT is Present. LAB L100.2620 2.0-7.7 X10 3/uL Normal Absolute Neut 6.7 LAB L100.2720 0.83-4.51 X10 3/ul Normal Absolute Lymph 2.45 Performed By: #### L100.0100 #### [facility] [address] [place], [address] ALLERGIES ALLERGIES DATE TYPE / CODE NAME / CODE REACTION SEVERITY SOURCE 06/20/2018 Miscellaneous SEASONAL Other Unknown [facility] 12/21/2017 Drug No Known Unknown Mariela Allergy/575631704(S Allergies/F001 [facility]) 989737(RXNORM) Hospital Repository ENCOUNTERS ENCOUNTERS ADMIT/DISCHARGE ACCOUNT ADMITTING ENCOUNTER LOCATION SOURCE NUMBER CLASS 06/20/2018/ [id number] Ambulatory BMSBuilding:B Mariela 8 1 [place] Hospital Repository 06/07/2018 [id number] [facility]iela [facility]OPBI Repository 05/08/2018/ [id number] Ambulatory BMSBuilding:B Mariela 8 8 [place] Repository 05/03/2018/ [id number] Ambulatory Dawes Mariela 8 1 [facility] ing[facility]PT Repository 03/15/2018 [id number] Ambulatory BMSBuilding:B [place] 5 [place] Repository 01/26/2018/ [id number] Ambulatory Mariela Mariela 8 6 [facility] ing:MNC Repository 01/26/2018 [id number] Ambulatory BMSBuilding:W Mariela 6 [facility] Repository 01/19/2018 [id number] Ambulatory Mariela Dawes 2 [facility] ing:BFHLAB Repository 12/21/2017/ [id number] Ambulatory BMSBuilding:B Dawes 8 4 [place] Repository 11/29/2017 [id number] Ambulatory Dawes Dawes 4 [facility] ing:MRI Repository 11/03/2017 [id number] Ambulatory Dawes Dawes 3 [facility] ing:US Repository 11/01/2017 [id number] Ambulatory Mariela Dawes 0 [facility] ing:LABSPEC Repository 11/01/2017/ [id number] Ambulatory BMSBuilding:B Mariela 8 0 [place] Repository 10/24/2017 [id number] Ambulatory Dawes Dawes 8 [facility] ing:BFHLAB Repository PAYERS PAYERS ENCOUNTER GUARANTOR PAYER SUBSCRIBER SOURCE 06/20/2018 MADISON Adam Primary MADISON Sierra [id number] [place] Insurance:PAPA ANNA: [facility] 5405[place]03-[place] [facility]: Repository [id number]: [phone] [id number] [phone] () Date:6345-10-59LQ [address] [place] [address] 38152KL: 06/20/2018 Secondary NOT GIVENUNK Mariela Insurance:SELF PAY [facility] Number: Effective Repository Date:2018-06-20 06/07/2018 JETT Primary MADISON Sierra [id number] [place] Insurance:BUCKJEREMYE SEYMSARAHDOB: [facility] 5876-01-01ANUCarte[place], [place] PLANPolic Number: Repository [id number]: 330 [id number] [phone] (HP) Date:9596-53-49JS [address] [place] [address] 31433SH: 06/07/2018 Secondary NOT GIVENUNK Dawes Insurance:SELF PAY [facility] Number: Effective Repository Date:2018-05-08 05/08/2018 MADISON J Primary MADISON Adam Mariela [id number] Insurance:JOEE SEYMSARAHDOB: [facility] 2721-78-74QXPShoals HospitalPolic Number: Repository [id number]: 330 [id number] [phone] (HP) Date:9601-12-23WY [address] [place] [address] 32959PE: 05/08/2018 Secondary NOT GIVENUNK Dawes Insurance:SELF PAY [facility] Number: Effective Repository Date:2018-05-08 05/03/2018 JETT Primary MADISON Harrisonoster [id number] Insurance:JOEE SEYMSARAHDOB: [facility] 2037-47-16WMDDecatur Morgan HospitalPolic Number: Repository [id number]: [phone] [id number] [phone] (HP) Date:0389-60-93ZR [address] [place] [address] 51098NT: 05/03/2018 Secondary NOT GIVENUNK Mariela Insurance:SELF PAY [facility] Number: Effective Repository Date:2018-03-27 03/15/2018 JETT Primary MADISON Harrisonoster [id number] Insurance:BUCKEYE SEYMOURDOB: [facility] 4228-12-[place]CE[place], [place] PLANPolicy Number: Repository [address]Bib: 330 [id number] [phone] (HP) Date:1155-13-09GP [address] [place] [address] 13621ZG: 03/15/2018 Secondary NOT GIVENUNK Mariela Insurance:SELF PAY [facility] Number: Effective Repository Date:2017-12-21 01/26/2018 JETT Primary MADISON J Mariela [id number] Insurance:PAPA FORMANB: [address]-13[place], [place] PLANPolicy Number: Repository [address]Wjf: 330 [id number] [phone] (HP) Date:6276-32-62LZ [address] [place] [address] 36605GV: 01/26/2018 Secondary NOT GIVENUNK Mariela Insurance:SELF PAY [facility] Number: Effective Repository Date:2018-01-15 01/26/2018 JETT Primary MADISON J Dawes [id number] Insurance:PAPA FORMANB: [facility] 8198-60-28BJMGoree, [place] PLANPolicy Number: Repository [id number]: 330 [id number] [phone] (HP) Date:7322-67-65FL [address] [place] [address] 21632TD: 01/26/2018 Secondary NOT GIVENUNK Mariela Insurance:SELF PAY [facility] Number: Effective Repository Date:2018-01-26 01/19/2018 JETT Primary MADISON J Dawes [id number] Insurance:PAPA FORMANB: [address], [place] PLANPolicy Number: Repository 24[address]Urt: 330 [id number] [phone] (HP) Date:8745-37-30LV [address] [place] [address] 12062BK: 01/19/2018 Secondary NOT GIVENUNK Mariela Insurance:SELF PAY [facility] Number: Effective Repository Date:2018-01-19 12/21/2017 JETT Primary MADISON Sierra [id number] Insurance:BUCKJEREMYE YMSARAHDOB: [address] PLANPolicy Number: Repository [address]Yih: 330 [id number] [phone] (HP) Date:3213-79-15OG [address] [place] [address] 97296BT: 12/21/2017 Secondary NOT GIVENUNK Dawes Insurance:SELF PAY [facility] Number: Effective Repository Date:2017-12-21 11/29/2017 JETT Primary MADISON Sierra [id number] Insurance:BUCKEYE SEYMSARAHDOB: [address] PLANPolicy Number: Repository [id number]: 330 [id number] [phone] (HP) Date:7744-34-40FW [address] [place] [address] 35400ZE: 11/29/2017 Secondary NOT GIVENUNK Dawes Insurance:SELF PAY [facility] Number: Effective Repository Date:2017-11-21 11/03/2017 JETT Primary MADISON Sierra [id number] Insurance:JOEE SEYMSARAHDOB: [address] PLANPolicy Number: Repository [address]Rga: 330 [id number] [phone] (HP) Date:2070-29-58CI BOX [facility] [address]ZU: 11/03/2017 Secondary NOT GIVENUNK Mariela Insurance:SELF PAY [facility] Number: Effective Repository Date:2017-11-01 11/01/2017 JETT Primary MADISON Harrisonoster [id number] Insurance:BUCKEYE SEYMOURDOB: [address] PLANPolicy Number: Repository [id number]: 330 [id number] [phone] (HP) Date:3689-40-11TN [address] [place], [place] [address] [address]LC: 11/01/2017 Secondary NOT GIVENUNK Dawes Insurance:SELF PAY [facility] Number: Effective Repository Date:2017-11-01 11/01/2017 Jett Primary Jett Mariela [id number] Insurance:PAPA Anna: [address] PLANPolicy Number: Repository [id number]: 330 [id number] [phone] (HP) Date:6826-79-62XM [address] [place] [address] 36461AG: 11/01/2017 Secondary NOT GIVENUNK Mariela Insurance:SELF PAY [facility] Number: Effective Repository Date:2017-11-01 10/24/2017 Jett Primary Jett Mariela [id number] Insurance:PAPA [facility] Number: Repository [address]Otp: 330 [id number] [phone] (HP) Date:4902-17-57EX [address] [place] [address] 722[address]AB: 10/24/2017 Secondary NOT GIVENUNK Mariela Insurance:SELF PAY [facility] Number: Effective Repository Date:2017-10-24
== END ==
PROVIDERS: Family Provider Family Medicine; PCP Family Medicine; Referring Provider Obstetrics & Gynecology; Visit Provider Obstetrics & Gynecology
DX: Z12.31 Encounter for screening mammogram for malignant neoplasm of breast (principal)
CPT/HCPCS: 77063; 77067

== ENCOUNTER → 2018-10-16 12:19 | Outpatient (CLI) | payer MEDICAID, SELFPAY ==
[2018-08-01 11:32] VITALS: BMI 29.9
--- NOTE | 2018-10-16 12:43 | MRI_ITS ---
STUDY: MRI RIGHT ANKLE WITHOUT CONTRAST REASON FOR EXAM: Female, 43 years old. Right ankle capsulitis. Extensor tendinitis. Plantar fasciitis. TECHNIQUE: Standardized fat and water weighted pulse sequences were obtained in all 3 orthogonal planes. COMPARISON: November 29, 2017. FINDINGS: Chronic plantar fascial thickening with mild edema surrounding the plantar calcaneal insertion (sagittal image 11 series 11). Tiny plantar spur. Posterior calcaneal fixation. Achilles tendon intact without tendinosis. Normal muscles of the midfoot/hindfoot. Stable cysts within the calcaneus. Normal tibiotalar articular cartilage. Normal subtalar articular cartilage. Normal talonavicular articular cartilage. Normal calcaneal cuboid articular cartilage. Postsurgical changes at the navicular at the region of the posterior tibialis tendon insertion (sagittal images 14 through 16 series 10). Mild navicular cuneiform joint arthrosis. Normal tarsal metatarsal articulations. No acute fracture lines. No acute dislocation. No acute cortical destruction. Trace tibiotalar/subtalar joint effusion. Normal extensor tendons. Postsurgical posterior tibialis tendon with severe tendinosis, chronic/recurrent split tear and malalignment/repositioned flexor digitorum longus tendon (axial images 1 through 21 series 4). Minimal posterior tibialis and flexor digitorum tenosynovitis. Normal flexor hallucis longus tendon. Trace peroneus longus tenosynovitis (axial image 26 series 4). Normal peroneus brevis tendon. Normal tibialis anterior tendon. Normal extensor hallucis longus tendon. Intact distal tibiofibular syndesmotic ligamentous complex. Intact lateral ligamentous complex. Intact subtalar ligaments and sinus tarsi. Intact deltoid ligamentous complexes. Mild chronic plantar calcaneonavicular (spring) ligament thickening. Intact Lisfranc ligament. 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
== END ==
PROVIDERS: Family Provider Family Medicine; PCP Family Medicine; Referring Provider Podiatrist; Visit Provider Podiatrist
DX: M77.8 Other enthesopathies, not elsewhere classified (principal); M77.9 Enthesopathy, unspecified; M72.2 Plantar fascial fibromatosis
CPT/HCPCS: 73721

== ENCOUNTER 2018-11-05 11:30 | Outpatient (RCR) | payer MEDICAID, SELFPAY ==
[2018-08-01 11:32] VITALS: BMI 29.9
--- NOTE | 2018-10-29 14:43 | HP.PTEVAL_ITS ---
Patient's Visit Information MADISON GREER is a 43 year old F referred to Physical Therapy by Ney Medrano DPM with a diagnosis of R extensor tendonitis/neuritis, capsulitis R ankle, PF R foot. Date of Evaluation: 10/29/18 Physical Therapist: MARILU Flynn - Visit Plan Frequency: 2x /Week Duration: 6 Weeks Plan: 2X/ week for 4-6 weeks for R ankle/PF stretching, AROM, R ankle strengthening, MT to the PF, US to the PF, gait training, balance and proprioceptionwith HEP and e-stim PRN - Subjective Findings: Last January she had repaired a tendon in her foot, stretched her achilles and placed a screw in her heel to help with her arch. They surgery went well and she did well and no pain for awhile before this bought of pain. This started about 8 months ago...she started having a lot of pain in her ankle, heel, and cant walk bare foot and uo and down stairs is hirribe. vaccum or sitting for long period of time and then getting up bothers her. Not sure if worse to be up on it or sit and then have to get back up. R ankle. She had an MRI and Dr said that there was a slighly pinched nerve, tendonitis, and heel PF. He has done 2 cortizone injections and they did not help other than the first day. - Pain R foot pain Pain Intensity (Out of 10): 6 Pain Intensity Range: 10 - Objective Gait: walks with decrease stance time on the R LE. Pt is unable to walk on heels or toes. R AROM: 15 degrees DF and 40 degrees PF. L AROM: 20 degrees DF and 40 degrees PF. L ankle girth measurements: 24.5 cm, 51.8, 22. R ankle girth measurements: 25, 51.5, 21.5R. R ankle MMT: INV 3+/5 and EV 4-/5, DF 4-/5, PF 4-/5. L ankle MMT: 4/5 INV, EV, DF and PF. Palpation: R plantar fascia towards her heel. Tightness B gastroc - Goals Goal 1:: I HEP Goal Time Frame: 4-6 Weeks Goal 2:: Be able to walk for 15 minutes without having pain Goal Time Frame: 4-6 Weeks Goal 3:: Decrease R ankle and PF pain to 1/10 with ADL's Goal Time Frame: 4-6 Weeks - Rehabilitation Potential Rehabilitation Potential: Good - Anticipated Interventions Patient/Client Instruction: Educate patient on: Condition, Plan of Care For the Purpose of:: To decrease pain, To decrease swelling/inflammation, To increase ROM, To improve nutrient delivery to tissue, To improve muscle performance and motor function, To improve ability to perform ADL's, To increase tolerance to activity/condition/position, To improve ability of physical actions for home/community/work/leisure, To improve gait and locomotor functions, To improve health of tissue, To decrease soft tissue restriction, To increase flexibility/ROM Therapeutic Exercise to Include: Strength training, Flexibilty training, Gait and locomotor training, Passive ROM, Active ROM For the Purpose of:: To decrease pain, To increase ROM, To improve muscle performance and motor function, To improve ability to perform ADL's, To increase tolerance to activity/condition/position, To improve gait and locomotor functions, To improve health of tissue, To increase flexibility/ROM, To improve balance Manual Therapy Techniques to Include: Passive ROM, Soft tissue mobilization For the Purpose of:: To improve health of tissue, To decrease soft tissue restriction, To increase flexibility/ROM IF ES: Yes Ultrasound (thermal/non thermal): Yes For the Purpose of:: To decrease pain, To increase ROM, To improve nutrient delivery to tissue Thank you for the opportunity to evaluate your patient. For Medicare and Medicare HMO plans, please review the plan of care and approve it. It will need to be FAXED BACK to us at [phone] for Medicare purposes. For Medicare only, by signing this I certify the plan of care. Please let me know if there are questions or concerns regarding this plan of care. Physician Signature: Date:____
--- NOTE | 2018-11-16 14:08 | HP.PT.NRP ---
HP - Discharge Summary (1) - Patient Information MADISON GREER was seen in my office for initial evaluation on 10/29/18. The following Plan of Care was established for this patient: Initial Frequency: 2x /Week Initial Duration: 6 Weeks - Anticipated Interventions Patient/Client Instruction: Educate patient on: Condition, Plan of Care For the Purpose of:: To decrease pain, To decrease swelling/inflammation, To increase ROM, To improve nutrient delivery to tissue, To improve muscle performance and motor function, To improve ability to perform ADL's, To increase tolerance to activity/condition/position, To improve ability of physical actions for home/community/work/leisure, To improve gait and locomotor functions, To improve health of tissue, To decrease soft tissue restriction, To increase flexibility/ROM Therapeutic Exercise to Include: Strength training, Flexibilty training, Gait and locomotor training, Passive ROM, Active ROM For the Purpose of:: To decrease pain, To increase ROM, To improve muscle performance and motor function, To improve ability to perform ADL's, To increase tolerance to activity/condition/position, To improve gait and locomotor functions, To improve health of tissue, To increase flexibility/ROM, To improve balance Manual Therapy Techniques to Include: Passive ROM, Soft tissue mobilization For the Purpose of:: To improve health of tissue, To decrease soft tissue restriction, To increase flexibility/ROM IF ES: Yes Ultrasound (thermal/non thermal): Yes For the Purpose of:: To decrease pain, To increase ROM, To improve nutrient delivery to tissue This patient was last seen in our office 11/05/18. Pertinent comments regarding their Physical therapy will appear below: Pt cancelled all appointments and stated she was doing well with HEP and wants to save her visits. At this point I will be discontinuing this patient from physical therapy. I would be happy to see this patient again in the future if found appropriate by the physician. Thank you! Brie Torres, MPT
== END 2018-11-05 19:00 | disposition home or self-care (01) ==
LOC: PT 11:30
PROVIDERS: Family Provider Family Medicine; PCP Family Medicine; Referring Provider Podiatrist; Visit Provider Podiatrist
DX: S96.111D Strain of muscle and tendon of long extensor muscle of toe at ankle and foot level, right foot, subsequent encounter (principal); M79.2 Neuralgia and neuritis, unspecified; M77.9 Enthesopathy, unspecified; M72.2 Plantar fascial fibromatosis
CPT/HCPCS: 97110; 97161

== ENCOUNTER → 2019-08-08 11:21 | Outpatient (CLI) | payer OTHER, SELFPAY ==
[2018-08-01 11:32] VITALS: BMI 29.9
[2019-08-08 11:49] LABS: Absolute Lymphocyte Count 2.73 X10^3/uL (0.83-4.51); Absolute Neutrophil Count 5.9 X10^3/uL (2.0-7.7); Basophil# 0.04 X10^3/uL; Basophil% 0.4 % (0-1); Eosinophil# 0.31 X10^3/uL; Eosinophils% 3.2 % (0-5); Hematocrit 42.4 % (37-47); Hemoglobin 13.9 g/dL (12.0-15.0); Lymphocyte # 2.73 X10^3/ul (4.0); Lymphocyte % 28.4 % (19-41); Mean Corp Hgb Conc 32.8 g/dL (32-36); Mean Corpuscular Hgb 30.3 pg (27.0-32.0); Mean Corpuscular Volume 92.6 fL (81-99); Mean Platelet Vol. 9.6 fl (6.2-12.0); Monocyte# 0.62 X10^3/uL; Monocyte% 6.5 % (0-10); NRBC Flagged by Analyzer 0 % (0-5); Neutrophil # 5.87 X10^3/uL (2.7-7.7); Neutrophil % 61.1 % (47-70); Platelet Count 300 K/mm3 (150-450); RBC Distribution Width CV 12.5 % (11.6-14.6); RBC Distribution Width SD 42.5 fl (35.1-43.9); Red Blood Count 4.58 M/mm3 (4.2-5.4); White Blood Count 9.6 K/mm3 (4.4-11.0)
[2019-08-08 12:12] LABS: Thyroid Stim Hormone (TSH) 0.61 uIU/mL (0.358-3.74)
== END ==
PROVIDERS: PCP Family Medicine; Referring Provider Obstetrics & Gynecology; Visit Provider Obstetrics & Gynecology
DX: N93.9 Abnormal uterine and vaginal bleeding, unspecified (principal)
CPT/HCPCS: 36415; 84443; 85025

== ENCOUNTER 2019-12-24 06:46 | Day surgery (SDC) | payer OTHER, SELFPAY ==
[2019-11-29 09:56] VITALS: BMI 32.9
[2019-12-17 13:10] VITALS: BMI 29.9
--- NOTE | 2019-12-17 13:57 | EKG12_ITS ---
Test Reason : PRE-OP Blood Pressure : / mmHG Vent. Rate : 072 BPM Atrial Rate : 072 BPM P-R Int : 120 ms QRS Dur : 086 ms QT Int : 392 ms P-R-T Axes : 061 038 013 degrees QTc Int : 429 ms Normal sinus rhythm Normal ECG Confirmed by MIGUELITO LORA ([id number]), editorial clerk TULIO BRITO ([id number]) on 12/19/2019 7:42:56 AM Referred By: Zhanna Ambrose Confirmed By:MIGUELITO LORA
[2019-12-17 14:32] LABS: Hematocrit 40.8 % (37-47); Hemoglobin 13.5 g/dL (12.0-15.0); Mean Corp Hgb Conc 33.1 g/dL (32-36); Mean Corpuscular Hgb 31.2 pg (27.0-32.0); Mean Corpuscular Volume 94.2 fL (81-99); Platelet Count 311 K/mm3 (150-450); RBC Distribution Width CV 12.3 % (11.6-14.6); RBC Distribution Width SD 42.4 fl (35.1-43.9); Red Blood Count 4.33 M/mm3 (4.2-5.4); White Blood Count 9.3 K/mm3 (4.4-11.0)
[2019-12-17 14:49] LABS: Partial Thromboplast Time 27.6 Seconds (24.1-36.2); Prothrombin Time (Protime)PT. 12.9 SECONDS (11.7-14.9)
[2019-12-17 15:37] LABS: AST(SGOT) 10 U/L (15-37); Alanine Aminotransfer ALT/SGPT 19 U/L (13-56); Albumin, Serum 3.9 g/dL (3.2-5.0); Alkaline Phosphatase 78 U/L (45-117); Bilirubin, Direct 0.07 mg/dL (0.00-0.30); Globulin 3.1 g/dL (2.2-4.2)
--- NOTE | 2019-12-23 16:51 | PCM.HPOB.BLA ---
- Problem List (1) Abnormal uterine bleeding Status: Chronic Comment: nexplanon failed. plan LAVH BS cysto History and Physical Date of Admission: 12/24/19 Intake Vital Signs 12/17/19 Height 5 ft 3 in 12/17/19 Weight: 183 lb 12/17/19 BMI 32.4 12/17/19 BP 108/86 H Intake Visit Reasons: pre op Chief Complaint: pre op [facility] 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 Female Reproductive History Cycle Length: 21-35 Questions: Metorrhagia: No, Sexually active: Yes, Dyspareunia: No, PCB: No Pregancy History 1 Elective abortions Hx Para 1 Spontaneous abortions Hx # Term Pregnancies Ectopic pregnancies Hx # Pregnancies Multiple births # of living children Past Pregnancies Del. Date Name GA/Weeks Outcome Route Bth Weight Gen Labor Lgth Anesthesia Del Locatn Provider FOB Unknown Gris-2012 ROS Const Constitutional: Denies fatigue, fever(s), headache(s), increased appetite, poor appetite, weight gain or weight loss Cardio Card: Denies chest pain Resp Resp: Denies cough or dyspnea GI GI: Reports as per HPI; denies abdominal pain, constipation, nausea or vomiting : Reports as per HPI; denies difficulty urinating, painful urination, nipple discharge, urinary frequency, urinary incontinence, urinary hesitancy, urinary urgency, vaginal discharge, vaginal dryness, vaginal odor or vaginal itching Skin Skin/Breast: Denies change in hair, breast lump, breast pain, breast skin changes or nipple discharge Exam Const General: cooperative, healthy appearing, comfortable, no acute distress, well developed Orientation: alert HENMT Head: normal to inspection, normocephalic Neck Neck: normal visual inspection, trachea midline Thyroid: thyroid normal Resp Effort & Inspection: normal respiratory effort GI Inspection: normal to inspection, non-distended Palpation: soft, no hepatosplenomegaly General: bladder normal to palpation External Female Exam: normal external appearance, normal appearance of the urethra Urethra: normal appearance of the urethra, normal palpation, no discharge Speculum Exam - Vagina: normal appearance of the vagina, normal vaginal discharge Speculum Exam - Cervix: normal appearance of the cervix, nontender Bimanual Exam- Vagina & Uterus: normal bimanual exam, uterine size normal, bladder normal to palpation, uterine shape normal, No cervical tenderness, uterine mobility normal, uterine consistency normal, normal cervical palpation, uterus non-tender Bimanual Exam- Adnexa, other: normal adnexae, adnexae mobile, no adnexal masses, pelvic support normal Pelvic Support: normal Skin General: no rashes or lesions noted Assessment & Plan Problems 1. Abnormal uterine bleeding N93.9 nexplanon failed. plan LAVH BS cysto Plan After discussing the patient's diagnosis and treatment plan options, patient wishes to proceed with surgical management. I have discussed with the patient the risks, benefits, and alternatives of the procedure which include but are not limited to risks of anesthesia, bleeding, infection, possible damage to bowel, bladder, or surrounding vasculature which could lead to additional surgery to evaluate any complications. Patient agrees to procedure and wishes to proceed. ACOG/uptodate references given for additional information regarding procedure. Coding Level of Care Code No Charge Diagnoses Abnormal uterine bleeding N93.9 UPDATE- I have seen the patient and performed any clinically relevant updates to the history and physical exam. Zhanna Ambrose MD
[2019-12-23 17:14] LABS: Probe Check PASS; Specimen Processing Control PASS
[2019-12-24] VITALS (10 sets, daily range): BP systolic 106–145; BP diastolic 53–84; PULSE 74–99; RESP 15–20; TEMP 36–36.8; O2SAT 94–99; BMI 32.2
[2019-12-24] MEDS: Acetaminophen 500 MG Tablet 1000 MG PO ×2 (07:00→15:18)
[2019-12-24 07:39] LABS: Internal QC Validated? YES +Cl - CLEAR BKGD; Pregnancy, Urine Negative Negative
[2019-12-24 07:41] LABS: Bedside Glucose 92 mg/dL (70-110)
[2019-12-24] MEDS: Gabapentin 600 MG Tablet PO (07:48)
[2019-12-24] MEDS: Celecoxib 200 MG Capsule 400 MG PO (07:49)
[2019-12-24] MEDS: Phenazopyridine 95 MG Tablet 190 MG PO (07:50)
[2019-12-24] MEDS: Scopolamine 1mg/72hr Patch 1 PATCH TRANSDERM. (07:50)
[2019-12-24] MEDS: Lactated Ringers 1,000 ML 40 ML IV (07:59)
[2019-12-24] MEDS: dexAMETHasone 10 MG/ML Vial 8 MG IV (08:01)
[2019-12-24] MEDS: Enoxaparin 40 MG/0.4 ML Syringe SC (08:03)
[2019-12-24 08:12] LABS: Magnesium 1.9 mg/dL (1.6-2.6)
--- NOTE | 2019-12-24 08:42 | OP.PCM_ITS ---
Problem List (1) Abnormal uterine bleeding Status: Chronic Comment: nexplanon failed. 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 Patient was taken back to the operating room and placed in the dorsal lithotomy position. General anesthesia was induced and patient was prepped and draped in normal sterile fashion. Uterine manipulator was placed inside the uterus and Ho catheter placed in the bladder. The umbilicus was grasped with towel clamps and an intraumbilical incision was made after injecting with quarter percent Marcaine and a Veress needle entered into the abdomen confirmed to be intra-abdominal with a low opening pressure. Abdomen was insufflated with CO2 gas and the Veress needle removed and the 5 mm trocar was placed under direct visualization without complication. Right and left lower quadrants were transilluminated and injected with quarter percent Marcaine and 5 mm ports placed under direct visualization. Pelvis was well visualized see operative findings for additional information. Bilateral fallopian tubes were identified and transected with the LigaSure device across the mesosalpinx to the level of the utero-ovarian ligament which was also transected with the LigaSure device. The broad ligament was opened up by transecting the round ligament bilaterally and skeletonizing the uterine vessels bilaterally and creating a bladder flap us ing the LigaSure device. this dissection was difficult due to previous scar tissue and was taken done with hydrodissection as well as blunt and sharp dissection. The uterine arteries were transected bilaterally with good visualization of the bladder and the ureters were seen to be inferior lateral to the operative area. Attention was then paid to the vaginal portion of the procedure and the cervix was grasped with Mariana clamps and circumferentially injected with dilute vasopressin. A circumferential incision was made and the vaginal mucosa was mobilized off posteriorly and the cul-de-sac entered into sharply and a longneck speculum placed. The anterior cul-de-sac was then identified and entered into sharply. The uterosacral ligaments were clamped cut and suture ligated with 0 Monocryl bilaterally followed by the cardinal ligaments which were clamped cut and suture ligated bilaterally with 0 Monocryl. The uterus serially descended and was removed without difficulty. Pelvic sidew all pedicles were checked and noted to have excellent hemostasis. The vaginal mucosa was reapproximated incorporating the posterior peritoneum. This was reapproximated using 0 Vicryl [id number] sutures. Excellent hemostasis was noted. The cystoscopy was then performed and bilateral ureteral strong spray was noted and the bladder was noted to have no abnormality or lesions seen. Ho catheter was replaced and then attention paid to the abdominal portion of the procedure again. The pelvis and cul-de-sac was well visualized and no significant active bleeding noted but some raw areas were seen on the peritoneum and therefore Abebe was applied. on the patient's left vaginal cuff angle floseal was also placed due to an area of bleeding. Pressure was taken down and the areas visualized and noted to have excellent hemostasis. All ports were removed under direct visualization without complication and the abdomen was desufflated of air. The instruments removed from the abdomen and the vagina vaginal sweep was negative. Port sites on the abdomen were closed with 4-0 Monocryl interrupted sutures and Steri's and windows were applied. She was awoken and taken recovery in stable condition. Grafts/Implants Used: none - Complications none - Admit VTE Documentation VTE Present on Admission: No VTE Mechan Device Prophylaxis: SCD's Multi Select Codes - Urinary/Genital Urinary/Genital CPT Codes: 39651 Cystoscopy, 45855 LAVH+BS/O <250gr Uterus
--- NOTE | 2019-12-24 08:44 | DCINST_ITS ---
Discharge Diet: No Restrictions Discharge Activity: Return to Normal Activity, May Not Drive, May Shower May resume sexual activity in: 6-8 weeks Call your doctor if your incision/area has: Continuous Slow Oozing, Sudden Increased Bleeding, Increased Pain/ Swelling, Increased Redness, Foul Smelling Discharge Call your doctor if you observe: Fever of 101 or Higher, Inability to urinate, Inability to have a bowel movement, Using more than one pad per hour Allergies/Adverse Reactions: Allergies SEASONAL Allergy (Uncoded 12/24/19 07:36) Other Medications to take at Discharge citalopram 20 mg tablet 20 mg PO QDAY 11/01/17 Cetirizine HCl [Zyrtec] 10 mg PO DAILY PRN 12/17/19 Dextroamphetamine/Amphetamine [Adderall 5 mg Tablet] 5 mg PO BID 12/17/19 Naproxen [Naprosyn] 250 - 500 mg PO Q8H PRN PRN #30 tab 12/24/19 Oxycodone HCl/Acetaminophen [Percocet 5-325] 1 - 2 tablet PO Q6H PRN PRN 7 Days #15 tablet 12/24/19 The following prescriptions were given: Naproxen [Naprosyn] 250 - 500 mg PO Q8H PRN PRN #30 tab PRN Reason: MILD PAIN Transmission Status: Pending to [facility] Oxycodone HCl/Acetaminophen [Percocet 5-325] 1 - 2 tablet PO Q6H PRN PRN 7 Days #15 tablet PRN Reason: Pain Transmission Status: Sent to [facility] Primary Care Physician: Sandip Douglas DO [Primary Care Provider] - Test Results: Test results from this visit will be discussed in further detail at your follow- up appointment, if applicable. Please Follow Up With: Zhanna Ambrose MD - [phone]
--- NOTE | 2019-12-24 09:00 | HYST_PTH ---
PATIENT: MADISON GREER LOC: [facility] [place] U#:[id number] AGE/SX: 44/F ROOM: RE12/24/[address]: Dr. Zhanna Ambrose MD : [id number] BED: DIS: 12/24/2019 SPEC #: [id number] RECD: 12/24/19 13:13 STATUS: ARI REPing #: [id number] NADEEM: 12/24/19 09:[address]: Zhanna Ambrose DEPT: SURGICAL PATHOLOGY RECD BY: Abilio Alvarez ENTERED: 12/25/19 08:58 SP TYPE: HYSTERECT OTHR DR: Dr. Sandip Douglas, DO Tissues: Uterus, NOS Procedures: Surgery Specimen Level V HEADER OPERATION: ERAS, hysterectomy, LAVH, salpingectomy, cystoscopy PRE-OP DIAGNOSIS: Abnormal uterine bleeding TISSUE SUBMITTED: Uterus, bilateral fallopian tubes MICROSCOPIC DIAGNOSIS Uterus and bilateral fallopian tubes, hysterectomy and bilateral salpingectomy: Cervix - chronic cystic cervicitis. Endometrium - proliferative endometrium. Myometrium - adenomyosis. - Intramural leiomyomas (0.3 and 0.7 cm in greatest dimension). Right fallopian tube - focal endometriosis. Left fallopian tube - no pathologic diagnosis. SJ:faustino 12/26/19 MICROSCOPIC DESCRIPTION Slides are reviewed. GROSS DESCRIPTION Received in fixative is one container labeled with the patient's name and designated uterus, bilateral fallopian tubes. The specimen consists of a hysterectomy specimen consisting of uterus with cervix and attached bilateral fallopian tubes. The uterus with cervix weighs 116 gm and measures 10 x 7 x 4.5 cm. The serosal surface is joyce, glistening. The ectocervical mucosa is unremarkable. The external os is circular and patulous in contour. The endocervical canal measures 3.5 cm in length and the endocervical mucosa is joyce, glistening and unremarkable. The triangular endometrial cavity measures 5 cm in length and up to 3.5 cm in width. The endometrium measures 0.1 cm in thickness. Sections of the uterine wall reveal two joyce nodular masses measuring 0.3 and 0.7 cm in greatest dimension. The uterine wall measures up to 2.5 cm in thickness. The right fallopian tube measures 5.5 cm in length and up to 0.8 cm in diameter. The fimbrial end is identified. Sections reveal unremarkable cut surfaces. The left fallopian tube is similar appearance to right and measures 5 cm in length and 0.8 cm in diameter. Tax Auditor sections are submitted in nine cassettes as follows: 1 - anterior cervix, 2 - posterior cervix, 3 & 4 - anterior uterine wall, 5 & 6 - posterior uterine wall, 7 - nodular masses, 8 - right fallopian tube, 9 - left fallopian tube. / ANUPAM:faustino 12/25/19 TC:5 CPT: 95804
[2019-12-24] MEDS: Cefazolin 2 GM in 0.9% Normal Saline 100 ML IV (09:11)
[2019-12-24] MEDS: Magnesium Sulfate 4gm/100mL 4 GM/100 ML IV.SOLN. IV (09:31)
[2019-12-24] MEDS: Lactated Ringers 1,000 ML 70 ML IV ×2 (10:16→13:11)
[2019-12-24] MEDS: Bupivacaine 0.25% 30 ML Vial (10:56)
[2019-12-24] MEDS: Vasopressin 20 UNITS/ML Vial (10:56)
[2019-12-24] MEDS: oxyCODONE 5 MG Tablet PO (14:27)
[2019-12-24 15:22] LABS: Hematocrit 41.2 % (37-47); Hemoglobin 13.6 g/dL (12.0-15.0); Mean Corpuscular Hgb 31.2 pg (27.0-32.0); Mean Corpuscular Volume 94.5 fL (81-99); Mean Platelet Vol. 9.6 fl (6.2-12.0); Platelet Count 291 K/mm3 (150-450); Red Blood Count 4.36 M/mm3 (4.2-5.4); White Blood Count 22.2 K/mm3 (4.4-11.0)
== END 2019-12-24 16:14 | disposition home or self-care (01) ==
LOC: SDC 06:50 → AC 06:51
PROVIDERS: Anesthesiology; PCP Family Medicine; Referring Provider Obstetrics & Gynecology; Visit Provider Obstetrics & Gynecology
PROC: 0UT9FZZ Resection of Uterus, Via Natural or Artificial Opening With Percutaneous Endoscopic Assistance (ICD-10-PCS; CPT 58552; principal; 2019-12-24 08:35)
DX: D25.1 Intramural leiomyoma of uterus (principal); N72 Inflammatory disease of cervix uteri; N80.0 Endometriosis of uterus; N80.2 Endometriosis of fallopian tube; Z11.59 Encounter for screening for other viral diseases; F32.9 Major depressive disorder, single episode, unspecified; F17.200 Nicotine dependence, unspecified, uncomplicated; Z79.899 Other long term (current) drug therapy
CPT/HCPCS: 58552; 36415; 80076; 81025; 82962; 83735; 85027; 85610; 85730; 86850; 86900; 86901; 87635; 88307; 93005; G2023; J7120; J2405; J3475; U0003

== ENCOUNTER → 2019-12-27 15:12 | Outpatient (CLI) | payer OTHER, SELFPAY ==
[2019-12-27 08:49] VITALS: BMI 32.2
== END ==
PROVIDERS: PCP Family Medicine; Referring Provider Obstetrics & Gynecology; Visit Provider Obstetrics & Gynecology
DX: G89.18 Other acute postprocedural pain (principal)
CPT/HCPCS: 87086

== ENCOUNTER → 2020-05-06 10:56 | Outpatient (CLI) | payer OTHER, SELFPAY ==
[2020-02-04 14:24] VITALS: BMI 32.2
--- NOTE | 2020-05-06 11:02 | MRI_ITS ---
STUDY: MRI LEFT ANKLE WITHOUT CONTRAST REASON FOR EXAM: Medial left ankle pain for 6 months, no specific injury, evaluate for posterior tibialis tendon tear. TECHNIQUE: Standardized fat and water weighted pulse sequences were obtained in all 3 orthogonal planes. COMPARISON: Left ankle radiograph report 12/30/2010. FINDINGS: Normal subcutis adipose space. There is a small volume of fluid in the proximal posterior tibialis tendon sheath (T2 axial images 7-9) and submalleolar posterior tibialis tendon sheath (inversion recovery sagittal image 5). The posterior tibialis tendon is morphologically normal. There is a small volume of fluid in the proximal flexor digitorum longus tendon sheath (T2 axial images 7-10). The flexor digitorum longus tendon is morphologically normal. There is fluid in the proximal flexor hallucis longus tendon sheath, proximal and distal to the sustentaculum meena (inversion recovery sagittal images 9, 10). Normal peroneus longus and brevis tendons. Normal tibialis anterior tendon. Normal extensor hallucis longus tendon. Normal extensor digitorum longus tendons. Normal Achilles tendon and teno-osseous insertion. Normal plantar fascia. Normal plantar calcaneal tubercles. Normal intrinsic muscles of the rearfoot. Normal distal tibiofibular syndesmotic ligamentous complex. Normal lateral ligamentous complex. Normal subtalar ligaments and sinus tarsi. There is a small cyst in the superior body of the calcaneus adjacent to the sinus tarsi. Normal deltoid ligamentous complexes. Normal plantar calcaneonavicular (spring) ligament. Normal tibiotalar articulation. Normal talar dome. Normal subtalar articulations. There is an os trigonum without bone edema. Normal talonavicular articulation. Normal calcaneocuboid articulation. Normal navicular-cuneiform articulations. MRI/Lower Ext Joint Only (Routine) IMPRESSION: Mild posterior tibialis tenosynovitis without demonstrated tendon tear. Mild flexor digitorum longus tenosynovitis. Fluid in the flexor hallucis longus tendon sheath. Electronically Signed: Steve Connolly MD at 13:48 EDT Tel , Service support ,
== END ==
PROVIDERS: PCP Family Medicine; Referring Provider Podiatrist; Visit Provider Podiatrist
DX: S86.912A Strain of unspecified muscle(s) and tendon(s) at lower leg level, left leg, initial encounter (principal); X58.XXXA Exposure to other specified factors, initial encounter; Y93.9 Activity, unspecified; Y92.9 Unspecified place or not applicable; Y99.9 Unspecified external cause status
CPT/HCPCS: 73721

== ENCOUNTER → 2020-12-29 06:30 | Outpatient (CLI) | payer OTHER, SELFPAY ==
[2020-12-14 08:47] VITALS: BMI 32.2
[2020-12-23 08:27] VITALS: BMI 32.2
--- NOTE | 2020-12-29 06:39 | MRI_ITS ---
STUDY: MRI RIGHT KNEE REASON FOR EXAM: Medial right knee pain status post right knee injury from a fall 3 weeks ago. TECHNIQUE: Standardized fat and water weighted pulse sequences were obtained in all 3 orthogonal planes. COMPARISON: Radiographs 12/14/2020. FINDINGS: Normal medial meniscus. Normal hyaline cartilage of the medial femorotibial compartment. Normal medial femoral condyle and tibial plateau. There is a sprain of the medial collateral ligament (T2 coronal images 16, 17). Normal distal semimembranosus, gracilis and semitendinosus tendons. Normal lateral meniscus. Normal hyaline cartilage of the lateral femorotibial compartment. Normal lateral femoral condyle and tibial plateau. Normal proximal tibiofibular articulation. Normal lateral collateral (fibular) ligament. Normal popliteus tendon. Normal biceps femoris tendon. Normal anterior cruciate ligament (ACL). Normal posterior cruciate ligament (PCL). Normal congruent patellofemoral articulation. There is an osteochondral lesion of the medial patellar facet measuring 0.8 cm in length (proton-density sagittal image 25) with thinning of the overlying articular cartilage and cystic change of the fragment (T2 axial image 9). There is an osteochondral lesion of the medial femoral trochlea (proton-density sagittal image 22) measuring 0.7 cm in length with cystic change of the fragment and mild bone edema of the parent bone (T2 sagittal image 15). Normal medial and lateral patellar retinaculum. Normal visualized quadriceps tendon. Normal patellar tendon. Normal Hoffa''s fat pad. There is a minimal volume of fluid in the knee joint. There is a thin medial patellar plica. There is mild edema in the anterior subcutis adipose space. The otherwise visualized osseous structures are unremarkable. MRI/Lower Ext Joint Only (Routine) IMPRESSION: Medial collateral ligament sprain. Osteochondral lesions of the medial patellar facet and medial femoral trochlea. Electronically Signed: Steve Connolly MD at 7:48 EDT Tel , Service support ,
== END ==
PROVIDERS: PCP Family Medicine; Referring Provider Family Medicine; Visit Provider Family Medicine
DX: M25.561 Pain in right knee (principal); M25.461 Effusion, right knee; M23.631 Other spontaneous disruption of medial collateral ligament of right knee
CPT/HCPCS: 73721

== ENCOUNTER → 2021-05-24 07:50 | Outpatient (CLI) | payer OTHER, SELFPAY ==
--- NOTE | 2021-05-24 08:41 | MRI_ITS ---
STUDY: MRI LEFT ANKLE WITHOUT CONTRAST REASON FOR EXAM: Medial left ankle pain for 3-4 months, evaluate for posterior tibialis tendon tear. TECHNIQUE: Standardized fat and water weighted pulse sequences were obtained in all 3 orthogonal planes. COMPARISON: MRI images 05/06/2020. FINDINGS: Normal subcutis adipose space. There is a small volume of fluid in the proximal posterior tibialis and flexor digitorum longus tendon sheath (T2 axial images 5-9), similar to the prior study. The posterior tibialis and flexor digitorum longus tendons are morphologically normal. There is fluid in the flexor hallucis longus tendon sheath proximal and distal to the sustentaculum meena (inversion recovery sagittal images 9, 10), similar to the prior study. Normal peroneus longus and brevis tendons. Normal tibialis anterior tendon. Normal extensor hallucis longus tendon. Normal extensor digitorum longus tendons. Normal Achilles tendon and teno-osseous insertion. Normal plantar fascia. Normal plantar calcaneal tubercles. Normal intrinsic muscles of the rearfoot. Normal distal tibiofibular syndesmotic ligamentous complex. Normal lateral ligamentous complex. Normal subtalar ligaments and sinus tarsi. There is a small cyst in the superior body of the calcaneus adjacent to the sinus tarsi. Normal deltoid ligamentous complexes. Normal plantar calcaneonavicular (spring) ligament. Normal tibiotalar articulation. Normal talar dome. Normal subtalar articulations. There is an os trigonum. Normal talonavicular articulation. Normal calcaneocuboid articulation. Normal navicular-cuneiform articulations. MRI/Lower Ext Joint Only (Routine) IMPRESSION: Mild posterior tibialis tenosynovitis without demonstrated posterior tibialis tendon tear. Mild flexor digitorum longus tenosynovitis. Fluid in the flexor hallucis longus tendon sheath. Electronically Signed: Steve Connolly MD at 13:14 EST Tel , Service support ,
== END ==
PROVIDERS: PCP Family Medicine; Referring Provider Podiatrist; Visit Provider Podiatrist
DX: S96.912A Strain of unspecified muscle and tendon at ankle and foot level, left foot, initial encounter (principal); X58.XXXA Exposure to other specified factors, initial encounter; Y93.9 Activity, unspecified; Y92.9 Unspecified place or not applicable; Y99.9 Unspecified external cause status
CPT/HCPCS: 73721

== ENCOUNTER 2023-03-05 17:19 | Emergency (ER) | payer OTHER, SELFPAY ==
[2023-03-05] VITALS (9 sets, daily range): BP systolic 116–131; BP diastolic 59–87; PULSE 72–81; RESP 12–36; TEMP 36.6; O2SAT 87–100; BMI 33.6
[2023-03-05] MEDS: Etomidate 20 MG/10 ML Vial IV (17:22)
[2023-03-05] MEDS: Rocuronium Bromide 50 MG/5 ML Vial IV (17:23)
--- NOTE | 2023-03-05 17:28 | EDS_ITS ---
HPI History of Present Illness Chief Complaint: Alt LOC Detail of Chief Complaint: Unresponsive after falling and hitting head Informant: EMS Onset/Context/Timing Onset: - (Abruptly after fall patient became unresponsive.) Context: Sudden Onset Timing: Continuous Quality: GCS less than 8 Location: Apparently was in the restroom and fell striking her head. She was vomitin Mechanism/Context: Yes injury, Yes blunt trauma and Yes fall Current Severity: Severe Maximum Severity: Severe Worsened by: Not applicable Relieved by: Nothing Associated Symptoms Associated Symptoms: vomiting Length of loss of consciousness: Since fall Narrative Narrative: Patient is a 47-year-old woman with no significant past medical history who has been vomiting all day per paramedics. She was in the restroom vomiting when she fell striking her head. She then became unresponsive. called squad. When patient arrived she had decerebrate posturing this was followed by nonpurposeful movement of her right upper extremity. Prior similar symptoms: No Recent Illness/Hospitalization: No PFSH PFSH Medical History Difficulty balancing when standing Endometriosis Fatigue Knee pain Limb weakness Seasonal allergies Home Medications citalopram 40 mg tablet 40 mg PO DAILY 12/14/20 [History Last Taken Unknown] Allergy/AdvReac Type Severity Reaction Status Date / Time No Known Allergies Allergy Verified 12/23/20 08:27 Surgical History H/O bilateral salpingectomy (~12/24/19) History of LAVH (~12/24/19) S/P Social History (Updated 03/05/23 @ 18:17 by Nasra Joyner) adopted: Yes household members: family housing: house Smoking Status: Current every day smoker tobacco type: cigarettes alcohol intake: never substance use type: does not use caffeine: Yes what type of physical activity do you participate in: aerobics frequency: 3-4 times per week seatbelt use: always do you feel safe at home: Yes additional social history: - Florentino AMEZCUA 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 ROS ROS ED Review of Systems ROS Unobtainable: due to mental status EXAM Physical Exam Const Vital Signs: 03/05/23 17:20 03/05/23 17:26 03/05/23 17:25 Temperature 98 F Temperature Source Temporal Pulse Rate Respiratory Rate 25 H Respiratory Pattern Blood Pressure 119/59 L Blood Pressure Mean 79 Pulse Ox 87 100 100 Oxygen Delivery Method Non-Rebreather Non-Rebreather Non-Rebreather Oxygen Flow Rate (L/min) 15 15 Fraction of Inspired Oxygen (FIO2) 03/05/23 18:10 03/05/23 18:28 03/05/23 18:40 Temperature Temperature Source Pulse Rate 80 72 74 Respiratory Rate 36 H 23 H 22 H Respiratory Pattern Blood Pressure 131/86 H 116/87 H 120/81 H Blood Pressure Mean 101 96 94 Pulse Ox 100 100 100 Oxygen Delivery Method Oxygen Flow Rate (L/min) Fraction of Inspired Oxygen (FIO2) 03/05/23 18:50 03/05/23 17:30 03/05/23 18:45 Temperature Temperature Source Pulse Rate 79 81 Respiratory Rate 19 H 16 Respiratory Pattern Normal Blood Pressure 117/80 Blood Pressure Mean 92 Pulse Ox 100 100 Oxygen Delivery Method Oxygen Flow Rate (L/min) Fraction of Inspired Oxygen (FIO2) 60 45 Positive well nourished and well developed Constitutional Narrative: Patient with decerebrate posturing. She has disconjugate gaze. General Appearance ED: well developed HEENT HEENT Narrative: There is no septal deviation hematoma. No evidence of epistaxis. There is no dental trauma. No palpable depression. normocephalic and atraumatic Eyes PERRL; Negative for EOMs intact bilaterally Eyes Narrative: Disconjugate gaze. Eyes are slightly deviated to the left. General Eye ED: Negative for pale conjunctiva or scleral icterus Neck no lymphadenopathy and no JVD Lymph Lymphatic Narrative: Trachea midline Chest Wall Chest Narrative: Appear normal Resp Resp Narrative: Patient has snoring type respiration. She is tachypneic. Patient has diminished breath sounds bilaterally. Adventitial breath sounds are noted bilaterally. Cardio regular rate, regular rhythm, S1 normal heart sound, S2 normal heart sound and no murmurs GI non-distended and no masses Auscultation: hypoactive bowel sounds Palpation: soft Neuro No oriented x3 Sensorium / Orientation: Negative for alert Speech: Negative for speech normal Gait (Neuro): Negative for normal gait Psych Psych Narrative: Unable to assess Skin General Skin Exam: Negative for jaundice Lesions: No lesion noted Rashes: No no rashes MDM MDM MDM Narrative Medical decision making narrative: Patient is nausea my may be due to new onset diabetes i.e. DKA. Because patient fell from unresponsive and has deep cerebral posturing with eyes deviated to the left and a GCS of 6 she was orotracheal intubated. Patient received 20 mg of etomidate and 50 mg rocuronium. She was easily orotracheally made with a 7.5 endotracheal tube using glide scope. Inline traction was held. Patient was subsequent placed in a collar since she did not arrive with a collar in place. NG and Alberto was ordered as well. CT of the head was obtained to rule out intracranial bleed which is major concern. Lab Data Labs: Laboratory Results - last 24 hr 03/05/23 03/05/23 17:29 17:45 WBC 32.1 H* RBC 4.72 Hgb 15.0 Hct 43.6 MCV 92.4 MCH 31.8 MCHC 34.4 RDW Std Deviation 42.0 RDW Coeff of Cirilo 12.2 Plt Count 399 MPV 10.2 Immature Gran % (Auto) 1.000 H Neut % (Auto) 90.1 H Lymph % (Auto) 2.6 L [place] % (Auto) 6.0 Eos % (Auto) 0.0 Baso % (Auto) 0.3 Absolute Neuts (auto) 28.9 H Absolute Lymphs (auto) 0.82 L Nucleated RBC % 0 Differential Comment SCANNED Diff Path Review November foll PT 14.0 INR 1.1 APTT 25.7 Sodium 141 Potassium 3.0 L Chloride 108 H Carbon Dioxide 17.0 L Anion Gap 16 H BUN 14 Creatinine 1.16 H Estim Creat Clear Calc 50.13 Est GFR (MDRD) Af Amer 64 Est GFR (MDRD) Non-Af 53 L BUN/Creatinine Ratio 12.1 Glucose 318 H Calcium 9.0 Total Bilirubin 0.60 AST 46 H ALT 42 Alkaline Phosphatase 76 Total Creatine Kinase 515 H Troponin I High Sens 1819 H* Total Protein 8.0 Albumin 4.5 Globulin 3.5 Albumin/Globulin Ratio 1.3 Urine Color Yellow Urine Clarity Clear Urine pH 6.0 Ur Specific [place] 1.020 Urine Protein 100 H Urine Glucose (UA) 1000 H Urine Ketones 150 A* Urine Occult Blood 150 H Urine Nitrite Negative Urine Bilirubin Negative Urine Urobilinogen Normal Ur Leukocyte Esterase Negative Urine RBC 5-10 SEEN Urine WBC 0-5 SEEN Ur Squamous Epith Cells 0 SEEN Urine Bacteria 0 SEEN Urine Mucus 0 SEEN Urine Opiates Screen NEGATIVE Urine Methadone Screen NEGATIVE Ur Barbiturates Screen NEGATIVE Ur Phencyclidine Scrn NEGATIVE Ur Amphetamines Screen NEGATIVE MDMA (Ecstasy) Screen NEGATIVE U Benzodiazepines Scrn NEGATIVE Urine Cocaine Screen NEGATIVE U Cannabinoids Screen POSITIVE H Ur Drug Screen Comment Ethyl Alcohol < 3.0 ABG Data Attestation: I personally reviewed and interpreted this ABG as follows: Interpretation: pH 7.35, PCO2 34, PO2 188, bicarb 19.2, base excess -6 with a 99.6% saturation. ABG results: ABG 03/05/23 17:57 Specimen Type ART Sample Site R Radial pH 7.35 Bicarbonate Actual 19.2 L Total CO2 20 Base Excess -6 L O2 Saturation 100 H O2 % 60.0 ABG pCO2 34.4 L ABG pO2 189 H Eyal Test Positive Respiration Rate 12 O2 Delivery Device Adult Vent Vent Mode AC Tidal Volume 450.0 POC PEEP 5 Radiography Chest X-Ray - ED: 1 View (Chest x-ray independent reviewed interpreted by me as negative for any acute interval pulmonary process. Endotracheal tube is in proper position. Orogastric tube is in proper position.) and Read by ED Physician Diagnostic Testing: Clinical Impression(s) from Imaging Studies Cervical Spine CT 03/05/23 17:31 IMPRESSION: No acute bony injury of the cervical spine. Subarachnoid blood along the spinal canal. Electronically Signed: Alexis Doan DO at 18:42 EDT , Brain CT 03/05/23 17:49 IMPRESSION: Right frontal parenchymal hemorrhage with intraventricular extension and moderate right to left midline shift. Electronically Signed: Alexis Doan DO at 18:30 EDT , ADDENDUM: 03/05/23 1841 IMPRESSION: Right frontal parenchymal hemorrhage with intraventricular extension and moderate right to left midline shift. N.B. : The above Results were Read Back by Alexis Doan DO to Edward Liu MD, and understanding confirmed on 03/05/2023 18:38:32 (ET). Electronically Signed: Alexis Doan DO at 18:30 EDT , CT without contrast reveals a large intraparenchymal bleed with shift and blood essentially in all ventricles. There is no hydrocephalus at this point. CT of the cervical spine reveals no obvious fracture. There is no prevertebral soft tissue swelling. There is no evidence of subluxation or dislocation. Awaiting formal read by radiologist for the CT of the head and CT of the neck. EKG Initial EKG: Attestation: I personally reviewed and interpreted this EKG as follows: Interpretation: Sinus Rhythm (Rate is 76. There is marked ST depression inferolateral leads that could be due to intracranial bleed or cardiac ischemia. [place] interval is 124 ms per cures duration 80 ms. QT duration 358 ms. [place] is normal.) Treatment and Re-Evaluation Narrative: Since patient has a large intraparenchymal bleed with shift patient was started on Cardene with a goal of systolic of 140. Patient to be transferred to tertiary facility. Will discuss with neurosurgeon regarding mannitol. Once was spoken to he informing that she complained of headache that started 12 to 16 hours ago followed by vomiting and now dry heaves. In light of this history concern is that this is a nontraumatic bleed. states at 1 point she laid down and felt better and got up prior to going to the into the restroom where she vomited and passed out. I received a call from Dr. Saskia Mccartney that the neurosurgeon requested transfer to [facility]. She she informing that she contact the transfer service to change destination from [facility] to [facility]. Procedures Intubations Intubation Method: orotracheal Intubation Verification: Positive color change Intubation Complications: no complications Critical Care Time Critical Care Time: Yes Critical care time (excluding procedures): 30-74 minutes (37), Including time spent: (History, physical, documentation, discussion with EMS, discussion with and family members), Discussing w/Patient &/or Family/Manager Plumbing, Discussing w/Consultants (Discussion with transfer nurse [facility] and Dr. Saskia Mccartney, ER physician who accepted patient), Arranging Admission or Transfer and Performing Direct Patient Care at Bedside (Intubation) Discharge Plan Triage Chief Complaint: Alt LOC ED Provider: Edward Liu Dx/Rx/DC Orders Clinical Impression: Intracranial hemorrhage, Generalized convulsive seizure, Decerebrate posture, Nausea & vomiting, Acute upper gastrointestinal bleeding Prescriptions: No Action citalopram 40 mg tablet 40 mg PO DAILY Primary Care Provider: Sandip Douglas Referrals: Sandip Douglas DO [Primary Care Provider] - Disposition Disposition: Acute Care Hospital Discharge Location: [facility]
--- NOTE | 2023-03-05 17:31 | CT_ITS ---
STUDY: CT CERVICAL SPINE WITHOUT CONTRAST REASON FOR EXAM: Female, 47 years old. Fall and unresponsive RADIATION DOSAGE (If Supplied By Facility): CTDIvol = ( 22.5 ) mGy, DLP = ( 476.29 ) mGycm TECHNIQUE: High resolution transaxial imaging was performed without contrast material. Sagittal and coronal images were reconstructed. Individualized dose optimization techniques were used for this CT. COMPARISON: None FINDINGS: Normal craniovertebral junction. Normal anterior atlantoaxial articulation. Normal odontoid process. Normal cervical lordosis. Normal vertebral bodies and posterior osseous elements. C2-3: Normal endplates. Normal disc height and morphology. Normal central canal. Facet hypertrophy slightly narrowing the left intervertebral neural foramen. C3-4: Normal endplates. Normal disc height and morphology. Normal central canal. Facet hypertrophy slightly narrowing the left intervertebral neural foramen. C4-5: Mild spurring at the endplates. Normal disc height and morphology. Normal central canal and intervertebral neuroforamina. C5-6: Mild spurring at the endplates. Normal disc height and morphology. Normal central canal. Facet hypertrophy narrowing the left intervertebral neural foramen. C6-7: Normal endplates. Normal disc height and morphology. Normal central canal and intervertebral neuroforamina. C7-T1: Normal endplates. Normal disc height and morphology. Normal central canal and intervertebral neuroforamina. Diffuse subarachnoid blood along the spinal canal. CT/Spine Cervical without Contras IMPRESSION: No acute bony injury of the cervical spine. Subarachnoid blood along the spinal canal. Electronically Signed: Alexis Doan DO at 18:42 EDT Reading Location ID and State: [facility] / [place] Tel [phone], Service support ,
--- NOTE | 2023-03-05 17:49 | CT_ITS ---
We are attempting to reach an attending provider to discuss findings. An addendum with communication details will be sent when the communication is complete. STUDY: CT BRAIN WITHOUT CONTRAST REASON FOR EXAM: Female, 47 years old. Trauma, GCS 6 with decerebrate posturing RADIATION DOSAGE (If Supplied By Facility): CTDIvol = ( 44.99 ) mGy, DLP = ( 779.24 ) mGycm TECHNIQUE: Transaxial CT imaging of the brain was performed without administration of intravenous contrast material. Individualized dose optimization techniques were used for this CT. COMPARISON: No relevant priors. FINDINGS: Normal soft tissue structures. Normal calvarium. There is a large right frontal parenchymal hemorrhage and parenchymal edema. It is estimated at 5.1 x 4.2 cm. There is a right to left midline shift estimated at 13 mm. Blood is also noted in the ventricular system. Prominent ventricles bilaterally. Normal visualized paranasal sinuses. CT/Brain/Head without Contrast IMPRESSION: Right frontal parenchymal hemorrhage with intraventricular extension and moderate right to left midline shift. Electronically Signed: Alexis Doan DO at 18:30 EDT ,
--- NOTE | 2023-03-05 17:54 | RAD_ITS ---
INDICATION: Intubation, NG tube placement EXAMINATION/TECHNIQUE: X-RAY - XR Chest 1 View COMPARISON: FINDINGS: LINES/DEVICES: Endotracheal tube with tip at 43 mm above the sandra. Nasogastric tube in the stomach.. LUNGS: No consolidation, edema or effusion. No pneumothorax. MEDIASTINUM AND CARDIOVASCULAR STRUCTURES: Cardiac silhouette not enlarged. Central airways and mediastinal contour are unremarkable. BONES AND SOFT TISSUES: Unremarkable. RAD/Chest 1 View (Portable) IMPRESSION: No radiographic evidence of acute cardiopulmonary disease. Electronically Signed: Alexis Doan DO at 20:15 EDT ,
[2023-03-05 18:02] LABS: Allen Test Positive; Base Excess -6 mmol/L (-2 to +2); Bicarbonate 19.2 mmol/L (22-26); Blood Gas Specimen Type ART; Mode AC; O2 Delivery Device Adult Vent; PEEP 5; PO2 189 mmHG (75-100); RR 12; SITE R Radial; SO2 100 % (95-99); Total Carbon Dioxide 20 mmol/L; pCO2 34.4 mmHg (35-45); pH 7.35 (7.35-7.45)
[2023-03-05] MEDS: Propofol 10MG/Ml 1,000 MG/100 ML Bottle 5.2 MG CONT INF (18:07)
[2023-03-05 18:12] LABS: CPK Total, Creatine Kinase 515 U/L (26-192)
[2023-03-05 18:25] LABS: Bacteria 0 SEEN /hpf (None Seen); Mucous, Urine 0 SEEN /hpf (<or=2+); Squamous Epithelial Cells - UA 0 SEEN /hpf (5-10)
[2023-03-05 18:28] LABS: Absolute Lymphocyte Count 0.82 X10^3/uL (0.83-4.51); Absolute Neutrophil Count 28.9 X10^3/uL (2.0-7.7); Basophil# 0.09 X10^3/uL; Basophil% 0.3 % (0-1); Hematocrit 43.6 % (37-47); Lymphocyte # 0.82 X10^3/ul (0.83-4.51); Lymphocyte % 2.6 % (19-41); Mean Corp Hgb Conc 34.4 g/dL (32-36); Mean Corpuscular Hgb 31.8 pg (27.0-32.0); Mean Corpuscular Volume 92.4 fL (81-99); Mean Platelet Vol. 10.2 fl (6.2-12.0); Monocyte# 1.91 X10^3/uL; NRBC Flagged by Analyzer 0 % (0-5); Neutrophil # 28.92 X10^3/uL (2.7-7.7); Neutrophil % 90.1 % (47-70); POSITIVE COUNT YES; POSITIVE DIFFERENTIAL YES; Platelet Count 399 K/mm3 (150-450); RBC Distribution Width CV 12.2 % (11.6-14.6); Red Blood Count 4.72 M/mm3 (4.2-5.4)
[2023-03-05 18:31] LABS: Differential Indicated SCAN CRITERIA MET; White Blood Count 32.1 K/mm3 (4.4-11.0)
[2023-03-05 18:32] LABS: International Normalized Ratio 1.1
[2023-03-05 18:33] LABS: Partial Thromboplast Time 25.7 Seconds (24.1-36.2)
[2023-03-05 18:36] LABS: Color, Urine Yellow (Yellow); Glucose, Dipstick 1000 mg/dl (Normal); Leukocyte Esterase-Dipstick Negative /ul (Negative); Nitrite-Dipstick Negative (Negative); Occult Blood-Urine 150 /ul (Negative); Protein-Dipstick 100 mg/dl (Negative); Urine Bilirubin Dipstick Negative (Negative); Urine Clarity Clear (Clear); Urine Urobilinogen Normal (Normal)
[2023-03-05 18:37] LABS: Alcohol, Blood (Medical)-Serum < 3.0 mg/dL
[2023-03-05 18:41] LABS: ALB/GLOB Ratio 1.3 RATIO (0.9-2.4); AST(SGOT) 46 U/L (15-37); Alanine Aminotransfer ALT/SGPT 42 U/L (13-56); Albumin, Serum 4.5 g/dL (3.2-5.0); Alkaline Phosphatase 76 U/L (45-117); Anion Gap 16 (5-15); BUN 14 mg/dL (7-18); BUN/Creat Ratio 12.1 RATIO (10-20); Chloride 108 mmol/L (98-107); Creatinine, Serum 1.16 mg/dL (0.55-1.02); EST Glomerular Filtration Rate 53 mL/min (>60); Est Glom Filt Rate - Afr Amer 64 mL/min (>60); Estimated Creatinine Clearance 50.13 ml/min; Globulin 3.5 g/dL (2.2-4.2); Glucose 318 mg/dL (74-106); Sodium Level 141 mmol/L (136-145)
[2023-03-05 18:41] LABS: Amphetamine Urine VISTA NEGATIVE (<1000 ng/mL); Barbiturate Urine VISTA NEGATIVE (< 200 ng/mL); Benzodiazepine Urine VISTA NEGATIVE (< 200 ng/mL); Cocaine Urine VISTA NEGATIVE (< 300 ng/mL); Ecstacy Urine VISTA NEGATIVE (< 500 ng/mL); Ketone-Dipstick 150 mg/dl (Negative); Methadone Urine VISTA NEGATIVE (< 300 ng/mL); PCP Urine VISTA NEGATIVE (< 25 ng/mL); THC Urine VISTA POSITIVE (< 50 ng/mL); Vista UDS pH Range 6
--- NOTE | 2023-03-05 18:45 | CPS ---
FOUND CHANGED VENT SETTINGS WHEN STARTING SHIFT
[2023-03-05 18:51] LABS: Red Blood Cells-Urine 5-10 SEEN /hpf (0-5); White Blood Cells 0-5 SEEN /hpf (0-5)
[2023-03-05 18:51] LABS: Troponin-I HS 1819 pg/mL (3.0-54.0)
[2023-03-05 18:57] LABS: Differential Comment SCANNED
--- NOTE | 2023-03-05 19:13 | ED.RN ---
183- Med flight landed.
--- NOTE | 2023-03-05 19:13 | ED.RN ---
Patient now being transferred to [facility] [place].
[2023-03-05 19:27] LABS: Triglycerides 81 mg/dL
[2023-03-05 19:46] LABS: Bedside Glucose 280 mg/dL (74-106)
--- NOTE | 2023-03-05 19:53 | ED.RN ---
1950:[facility] [employer] flight here.
--- NOTE | 2023-03-05 20:15 | ED.RN ---
Report given to Dorys at [facility]. [facility] left at 2009.
[2023-03-07 09:53] LABS: Pathologist Review Reviewed
== END 2023-03-05 20:10 | disposition short-term general hospital (02) ==
PROVIDERS: Emergency Provider Emergency Medicine; PCP Family Medicine; Visit Provider Emergency Medicine
DX: S06.2X9A Diffuse traumatic brain injury with loss of consciousness of unspecified duration, initial encounter (principal); R56.9 Unspecified convulsions; R11.2 Nausea with vomiting, unspecified; F17.210 Nicotine dependence, cigarettes, uncomplicated; W19.XXXA Unspecified fall, initial encounter; Y92.89 Other specified places as the place of occurrence of the external cause
CPT/HCPCS: 31500; 36600; 70450; 71045; 72125; 80053; 80307; 81001; 82077; 82550; 82803; 82962; 84478; 84484; 85025; 85610; 85730; 93005; 94002; 96365; 96366; 96367; 96375; 99252; 99285; J7030; A4216; G0463; J3490

== ENCOUNTER 2023-04-06 17:02 | Inpatient (IN) | payer OTHER, SELFPAY ==
[2023-04-06 17:11] VITALS: BP 113/66; PULSE 78; RESP 18; TEMP 37.9; O2SAT 99; BMI 25.4
--- NOTE | 2023-04-06 18:11 | PCM.RX.CS ---
Consult Antibiotic Management Pharmacy has been consulted to manage selected antiobiotic: Vancomycin Type of Intervention Type of Consult: New start Suspected Infection Suspected Infection: Meningitis (PER RN HOSPITAL ACQUIRED MENINGITIS) Prior Doses of Antibiotics Prior Doses of Antibiotics Received/Current Regimen: The patient was on Vancomycin 1250 mg IV Q12H with last dose 04/06/23 @ 0940. Dosing Weight Weight used for dosin kg Estimated Creatinine Clearance Estimated Creatinine Clearance: pending Goal Trough Goal Trough: 15-20 mcg/mL Pharmacy Plan for Drug Dosing Pharmacy Plan for Drug Dosing: Will get trough today @ 2100 which will be ~ 11.5 hours after last dose, either continue 1250 mg Q12H or adjust dosing based on results. Pharmacy Service will continue to monitor and adjust dosing as required. Follow-Up Labs Follow-Up Labs: Trough: Vancomycin Date/Time Labs Ordered Labs to be done on [date and time ordered]: 04/06/23 @ 2100
[2023-04-06] MEDS: Acetaminophen 325 MG Tablet 650 MG PO (19:58)
[2023-04-06] MEDS: Heparin Injection (Vial) 5,000 UNIT/ML VIAL 5000 UNIT SC (19:59)
[2023-04-06] MEDS: Atorvastatin Calcium 80 MG Tablet PO (20:00)
[2023-04-06] MEDS: MELATONIN 3 MG TABLET 9 MG PO (20:00)
[2023-04-06] MEDS: Senna/Docusate Sodium 1 Tablet 2 TABLET PO (20:01)
[2023-04-06 20:14] VITALS: BP 108/75; PULSE 99
[2023-04-06] MEDS: Metoprolol Tartrate 25 MG Tablet PO (20:14)
[2023-04-06 20:25] VITALS: BP 108/75; PULSE 99; RESP 16; TEMP 37.4; O2SAT 99
[2023-04-06 20:28] VITALS: PULSE 99; RESP 16; O2SAT 99
[2023-04-06 20:41] VITALS: BP 108/75; PULSE 99; RESP 16; TEMP 37.4; O2SAT 99
[2023-04-06] MEDS: 0.9% Normal Saline (250mL Bag) 250 ML 15 ML IV (22:35)
[2023-04-06] MEDS: 0.9 % NaCl (Sterile) Posiflush 10 mL IV (22:35)
[2023-04-06] MEDS: Meropenem 2 GM in 0.9% Normal Saline (100mL Bag) 100 ML IV (22:38)
[2023-04-07] MEDS: Vancomycin HCl 1,250 MG in 0.9% Normal Saline (250mL Bag) 250 ML 167 MG IV ×3 (00:13→23:25)
[2023-04-07] MEDS: Vancomycin Trough/Random Due 1 LAB MC (01:43)
--- NOTE | 2023-04-07 01:49 | NURSING ---
Reviewed and agree with WATER QUALITY ASSISTANT assessment and charting.
[2023-04-07] MEDS: Meropenem 2 GM in 0.9% Normal Saline (100mL Bag) 100 ML IV ×3 (05:40→21:17)
[2023-04-07 06:00] VITALS: BMI 25.3
--- NOTE | 2023-04-07 06:00 | EKG12_ITS ---
Test Reason : UNRESPONSIVE Blood Pressure : / mmHG Vent. Rate : 076 BPM Atrial Rate : 076 BPM P-R Int : 124 ms QRS Dur : 080 ms QT Int : 358 ms P-R-T Axes : 067 045 022 degrees QTc Int : 402 ms Sinus rhythm with marked sinus arrhythmia Marked ST abnormality, possible anterior subendocardial injury Abnormal ECG Confirmed by DANTE MARTINEZ, MARJAN ([id number]), image editor ELIDA BRANCH ([id number]) on 04/14/2023 12:39:38 PM Referred By: CASANDRA Confirmed By:PAXTON HOWELL MD
[2023-04-07 06:05] LABS: Absolute Lymphocyte Count 1.49 X10^3/uL (0.83-4.51); Absolute Neutrophil Count 3.9 X10^3/uL (2.0-7.7); Basophil# 0.05 X10^3/uL; Basophil% 0.8 % (0-1); Eosinophil# 0.25 X10^3/uL; Hematocrit 35.3 % (37-47); Hemoglobin 11.4 g/dL (12.0-15.0); Lymphocyte # 1.49 X10^3/ul (0.83-4.51); Lymphocyte % 23.9 % (19-41); Mean Corp Hgb Conc 32.3 g/dL (32-36); Mean Corpuscular Hgb 31.6 pg (27.0-32.0); Mean Corpuscular Volume 97.8 fL (81-99); Mean Platelet Vol. 9.3 fl (6.2-12.0); Monocyte# 0.52 X10^3/uL; Monocyte% 8.3 % (0-10); NRBC Flagged by Analyzer 0 % (0-5); Neutrophil # 3.91 X10^3/uL (2.7-7.7); Neutrophil % 62.8 % (47-70); Platelet Count 258 K/mm3 (150-450); RBC Distribution Width CV 12.9 % (11.6-14.6); RBC Distribution Width SD 46.1 fl (35.1-43.9); Red Blood Count 3.61 M/mm3 (4.2-5.4); White Blood Count 6.2 K/mm3 (4.4-11.0)
[2023-04-07 06:47] LABS: ALB/GLOB Ratio 1.1 RATIO (0.9-2.4); AST(SGOT) 17 U/L (15-37); Alanine Aminotransfer ALT/SGPT 41 U/L (13-56); Albumin, Serum 3.4 g/dL (3.2-5.0); Alkaline Phosphatase 88 U/L (45-117); Anion Gap 5 (5-15); BUN 8 mg/dL (7-18); BUN/Creat Ratio 12.8 RATIO (10-20); Calcium,Total 9.1 mg/dL (8.5-10.1); Chloride 108 mmol/L (98-107); Creatinine, Serum 0.62 mg/dL (0.55-1.02); EST Glomerular Filtration Rate 109 mL/min (>60); Est Glom Filt Rate - Afr Amer 132 mL/min (>60); Estimated Creatinine Clearance 93.79 ml/min; Globulin 3.2 g/dL (2.2-4.2); Glucose 96 mg/dL (74-106); Magnesium 2.5 mg/dL (1.6-2.6); Phosphorus 2.3 mg/dL (2.5-4.9); Potassium 3.9 mmol/L (3.5-5.1); Protein, Total 6.6 g/dL (6.4-8.2); Sodium Level 141 mmol/L (136-145)
[2023-04-07 08:05] VITALS: BP 97/59; PULSE 90; RESP 18; TEMP 37.2; O2SAT 97
[2023-04-07 08:17] VITALS: O2SAT 97
[2023-04-07] MEDS: Potassium Chloride Oral Tablet 20 MEQ PO (09:04)
[2023-04-07 09:05] VITALS: PULSE 90
[2023-04-07] MEDS: Citalopram 40 MG TABLET 20 MG PO (09:05)
[2023-04-07] MEDS: Aspirin 81 MG TAB.CHEW PO (09:05)
[2023-04-07] MEDS: Folic Acid 1 MG Tablet PO (09:05)
[2023-04-07] MEDS: Thiamine Hydrochloride 100 MG Tablet PO (09:05)
[2023-04-07] MEDS: Metoprolol Tartrate 25 MG Tablet PO ×2 (09:05→21:15)
[2023-04-07] MEDS: Heparin Injection (Vial) 5,000 UNIT/ML VIAL 5000 UNIT SC ×2 (09:16→21:15)
[2023-04-07] MEDS: Acetaminophen 325 MG Tablet 650 MG PO ×2 (09:16→20:00)
--- NOTE | 2023-04-07 12:07 | EX.PCM.HP.RE ---
HPI - General General Date of Admission: 04/06/23 Date of Service: 04/07/23 Chief Complaint: Debility due to ruptured intracerebral aneurysm. HPI Narrative MADISON GREER, is a 47 YO F with a PMH of tobacco dependence (since age 17), migraines, endometriosis, anxiety/depression, seasonal allergies, ADD? and a FH of cerebral aneurysm (maternal grandmother) who presented to the ED at [facility] on 03/05/23 by squad after falling while in the bathroom, hitting her head and then becoming unresponsive abruptly. She had developed a AGUILAR about MN the preceding night and had been vomiting. GCS at arrival to the ED was 6. She had decerebrate posturing and non-purposeful movement of the RUE. Eyes were deviated L. She was intubated and placed in a cervical collar. A [place] CT brain showed a right frontal parenchymal hemorrhage with intraventricular extension and moderate right to left midline shift. CT scan of the cervical spine showed no bony injury of the cervical spine but did show subarachnoid blood along the spinal canal. Troponin was elevated on lab done at. She was transferred to [facility] to be evaluated by neurosurgery. ECG at [facility] showed diffuse ST segment elevations. She was take to the OR at [facility] for a R frontal craniotomy with ICH evacuation and placement of an EVD. CTA performed at arrival to [facility] showed no clear vascular lesion. DSA was negative for vascular lesion. She was seen by Cardiology for the ECG changes and the elevated CE's and they felt she had a Takotsubo's cardiomyopathy (EF on ECHO was 45%). They recommended a beta-sonia, DAPT and a angiogram (it was negative for vascular stenosis). Because of the ICH the DAPT was not started. She was started on Metoprolol and Atorvastatin. She was started on ASA 48 H after the crani. On 03/08 she had persistent fevers not responding to antipyretics. ID was consulted. She was started on Cefepime and she was ruiz cultured. Cultures were negative. On 03/09/2023 a venous ultrasound of the bilateral lower extremities and upper extremities was performed and the right side LE was negative. There was an acute calf DVT in the peroneal vein at mid calf of the left lower extremity. US of the UE's showed a DVT in the Left subclavian V. She was continued on heparin 5000 units every 8 hours and vascular medicine was consulted. They recommended repeating the US in a few days. Other complications included a UTI due to Enterococcus faecalis on 03/19/2023 and she was started on Unasyn. 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 The wound site had to be oversewn several times. On 03/25/2023 she once again had a CSF leak and the CT showed a pseudomeningocele and she was transferred to the NICU. A subarachnoid drain was placed and she was started on Vanco and Merrem for bacterial meningitis. Repeat echocardiogram on 03/12/2023 showed improvement of the ejection fraction to 55%. Initial EF was 45% with diffuse hypokinesis. She was initially on Seroquel at [facility] which was stopped due to QT prolongation and she was transitioned to Zyprexa. Lola tells me that she had migraines for years but, when she had a hysterectomy in 2019 for abnormal uterine bleeding the migraines stopped. About 6 months prior to the ICH she started having episodic AGUILAR's again and they were more severe than her migraines had been in the past. They were associated with N/V. She has been taking Citalopram for a few years now and she takes this for anxiety and depression. She has had a hard time sleeping at night because she can not turn her brain off. She tells me that the Trazodone she took while at [facility] helped her. Review of Dr. 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 [facility] Medical History (Updated 04/07/23 @ 15:[address] Nelida Chaevz, ) Acute bacterial meningitis Endometriosis Fatigue ICH (intracerebral hemorrhage) Internal derangement of right knee Marijuana use MCL sprain of right knee Seasonal allergies Strain of right knee Home Medications citalopram 40 mg tablet 40 mg PO DAILY depression 12/14/20 [History Last Taken Unknown] acetaminophen 325 mg tablet 650 mg PO Q4H PRN pain 04/06/23 [History Last Taken 04/06/23] aspirin 81 mg chewable tablet 1 tab PO DAILY heart health 04/06/23 [History Last Taken 04/06/23] atorvastatin 80 mg tablet (Lipitor) 80 mg PO QHS cholesterol 04/06/23 [History Last Taken 04/05/23] folic acid 1 mg tablet 1 mg PO DAILY supplement 04/06/23 [History Last Taken 04/06/23] heparin (bovine) 5,000 unit/mL injection solution 5,000 unit .Route Q12H prophylactic 04/06/23 [History Last Taken 04/06/23] melatonin 3 mg tablet 3 mg PO QHS sleep 04/06/23 [History Last Taken 04/05/23] metoprolol tartrate 25 mg tablet 25 mg PO BID Heart rate/BP 04/06/23 [History Last Taken 04/06/23] polyethylene glycol 3350 17 gram/dose oral powder (Miralax) 17 g PO DAILY bowel mobility 04/06/23 [History Last Taken 04/06/23] potassium chloride 20 mEq tablet,extended release(part/cryst) 20 meq PO DAILY supplement 04/06/23 [History Last Taken 04/06/23] thiamine HCl (vitamin B1) 100 mg tablet (Vitamin B-1) 100 mg PO DAILY supplement 04/06/23 [History Last Taken 04/06/23] vancomycin 1.25 gram intravenous solution 1.25 g IV Q12H ATB 04/06/23 [History Last Taken 04/06/23] Allergy/AdvReac Type Severity Reaction Status Date / Time Seroquel AdvReac QT Uncoded 04/07/23 15:58 prolongation Family History (Updated 04/07/23 @ 15:[address] Nelida Chavez DO) Grandmother Cerebral aneurysm Maternal GM Other Diabetes Family History unable to obtain Surgical History (Updated 04/07/23 @ 15:[address] Nelida Chavez DO) H/O bilateral salpingectomy (~12/24/19) History of LAVH (~12/24/19) S/P Status post craniotomy Social History (Updated 04/07/23 @ 15:[address] 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 Smoking Status: Heavy Smoker (>10/day) Tobacco: How many years used: 30 how long ago did patient quit smokin month ago quit status: quit date established counseling given: provider counseling and counseling >3 minutes alcohol intake: never substance use type: marijuana caffeine: Yes what type of physical activity do you participate in: aerobics frequency: 3-4 times per week seatbelt use: always do you feel safe at home: Yes additional social history: - Christofer- [employer] 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 ROS Constitutional Constitutional: Reports fatigue and weakness; Denies anorexia, change in weight, chills, fever(s) or night sweats Eyes Eyes: Denies blurry vision, change in vision, discharge from eye(s), double vision, eye pain, itchy eyes or loss of vision ENT HEENT: Denies abnormal hearing, dysphagia, headache(s), hearing loss, nasal congestion or sore throat Cardiovascular Cardiovascular: Denies chest pain, dyspnea on exertion, edema, lightheadedness, orthopnea, palpitations, paroxysmal nocturnal dyspnea or syncope Respiratory/Chest Respiratory/Chest: Denies cough, dyspnea, shortness of breath at rest, shortness of breath with exertion or wheezing Gastrointestinal Gastrointestinal: Denies abdominal pain, constipation, diarrhea, dyspepsia, hematemesis, hematochezia, nausea or vomiting Genitourinary Genitourinary: Denies dysuria, hematuria, nocturia, urinary frequency, urinary hesitancy, urinary incontinence or urinary urgency Musculoskeletal Musculoskeletal: Denies back pain, joint pain, joint swelling or neck pain Integumentary Integumentary: Reports other Details: She has a healing incision on the R frontal area of the skull ; Denies jaundice or rash Neurologic Neurologic: Reports weakness and other Details: trouble word finding ; Denies confusion, dizziness, headache(s), paresthesias, seizures or tremor(s) Psychiatric Psychiatric: Reports anxiety; Denies depression, homicidal ideation or suicidal ideation Endocrine Endocrinology: Denies change in body appearance, polydipsia or polyuria Hematologic/Lymphatic Hematologic/Lymphatic: Denies easy bleeding, easy bruising or lymphadenopathy Allergic/Immunologic Allergic/Immunologic: Reports seasonal rhinorrhea and rhinitis; Denies GI upset w/certain foods, itchy eyes, eczemia or asthma Vital Signs Vital Signs Vital Signs: 04/06/23 17:11 04/06/23 20:14 04/06/23 20:25 Temperature 100.3 F H 99.4 F H Temperature Source Temporal Temporal Pulse Rate 78 99 99 Pulse Strength Respiratory Rate 18 16 Respiratory Effort Respiratory Depth Respiratory Pattern Blood Pressure 113/66 108/75 108/75 Blood Pressure Mean 81 86 Blood Pressure Source Monitor Monitor Blood Pressure Position Semi-Fowlers Semi-Fowlers Blood Pressure Location Left Arm Left Arm Pulse Ox 99 99 Oxygen Delivery Method Room Air Room Air 04/06/23 20:25 04/06/23 20:28 04/06/23 20:41 Temperature 99.4 F H Temperature Source Temporal Pulse Rate 99 99 Pulse Strength Normal (2+) Respiratory Rate 16 16 Respiratory Effort Normal Non-Labored Respiratory Depth Normal Respiratory Pattern Normal Blood Pressure 108/75 Blood Pressure Mean 86 Blood Pressure Source Blood Pressure Position Blood Pressure Location Pulse Ox 99 99 Oxygen Delivery Method Room Air Room Air 04/07/23 08:05 04/07/23 08:17 04/07/23 09:05 Temperature 98.9 F Temperature Source Temporal Pulse Rate 90 90 Pulse Strength Respiratory Rate 18 Respiratory Effort Respiratory Depth Respiratory Pattern Blood Pressure 97/59 L Blood Pressure Mean 71 Blood Pressure Source Monitor Blood Pressure Position Semi-Fowlers Blood Pressure Location Left Arm Pulse Ox 97 97 Oxygen Delivery Method Room Air Room Air Weight Weight: 143 lb 1.28 oz Body Mass Index (BMI) 25.3 Indicators for Scoring Admitted with or Primary Diagnosis of CVA/Stroke: Yes Hx of CVA/Stroke: Yes Modified [place] Score MRS Score at time of Evaluation: 4-Moderate/severe disability NIHSS NIHSS 1a. Level of Consciousness: Alert; keenly responsive 1b. LOC Questions: Answers one question correctly. 1c. LOC Commands: Performs both tasks correctly. 2. Best Gaze: Normal 3. Visual: No visual loss 4. Facial Palsy: Minor paralysis (flattened nasolabial fold, asymmetry on smiling) (R eyebrow does not elevate with the left) 5a. Left Arm: Drift; arm drifts downward but doesn?t hit the bed 5b. Right Arm: No drift; arm holds 90 (or 45) degrees for full 10 seconds 6a. Left Leg: No drift; leg holds 30-degree position for full 5 seconds 6b. Right Leg: No drift; leg holds 30-degree position for full 5 seconds 7. Limb Ataxia: Absent 8. Sensory: Normal; no sensory loss 9. Best Language: [id number] aphasia; (trouble word finding and has some cognitive dysfunction) 10. Dysarthria: [id number] dysarthria; (more so when she is tired) 11. Extinction and Inattention: No abnormality Total: 5 Stroke Questions Stroke Team Activated: No Physical Exam Const alert, oriented x3 and no apparent distress Constitutional Narrative: Making good eye contact, appropriate General Appearance: cooperative and comfortable HEENT normocephalic and moist oral mucous membranes HEENT Narrative: The crani incision is in the R frontal area and it is healing well with no dehiscence, no ricardo-incisional erythema and no active DC. There are a few small scabs along the incision. Eyes PERRL and EOMs intact bilaterally Eyes Narrative: No DC from the eye and no mattering of the eyelashes. No conjunctival injection. No visual field cuts. Neck No nuchal rigidity, no lymphadenopathy, supple, no JVD and no carotid bruits Neck Narrative: The carotid upstroke is brisk with excellent pulse volume. General: trachea midline Resp normal respiratory effort, no use of accessory muscles and clear to auscultation bilaterally Resp Narrative: Not tachypneic and no conversational dyspnea. Effort and Inspection: Negative for tachypneic, labored or uses accessory muscles Cardio regular rate, regular rhythm, S1 normal heart sound, S2 normal heart sound, no murmurs, no rub and no gallops GI normal to inspection, nondistended, normoactive bowel sounds and non-tender GI Narrative: No guarding with palpation. Extremity no clubbing, cyanosis or edema Extremity Narrative: Negative Leo's and Ellen's signs Skin no jaundice and no petechiae Skin Narrative: No rashes, no skin breakdown. Crani incision is healing well. General Skin Exam: no breakdown Rashes: no rashes Neuro Neuro Narrative: She is alert. She could not tell me how old she is but, she was able to tell me the month. She only scored 15/[address] cognitive assessment. She has no facial droop but, the eyebrows do not elevate symmetrically........the R eyebrow is flattened and does not elevate. Her drivers license picture shows that they are both even so I presume this is new. No visual loss but, she has L side neglect and is not acknowledging things that are on her left side. she is walking into the left side of the doorway to her room and she grabs the walker with only the R hand. No ataxia. No extinction. She has droop with the LUE but, it does not hit the bed. She feels as though she is leaning to one side. She is impulsive and also restless. She slurred some of her words. She also has trouble word finding. Coordination / Balance: [id number] test normal and [id number] test normal Psych affect normal Psych Narrative: Restless, polite, making good eye contact. No flight of ideas. Tells me that she feels somewhat depressed about recent illness but, prior to the ICH she was not depressed. she does appear anxious. Conversant and relating well to staff. She was having both visual and auditory hallucinations while at the [facility] but, these have resolved. Thought Content: No suicidality, No homicidality and No hallucination(s) Results Lab / Micro Data 04/07/23 05:18 04/07/23 05:18 Labs: Laboratory Results - last 24 hr 04/06/23 21:00: Vancomycin Trough 20.0 H 04/07/23 05:18: WBC 6.2, RBC 3.61 L, Hgb 11.4 L, Hct 35.3 L, MCV 97.8, MCH 31.6, MCHC 32.3, RDW Std Deviation 46.1 H, RDW Coeff of Cirilo 12.9, Plt Count 258, MPV 9.3, Immature Gran % (Auto) 0.200, Neut % (Auto) 62.8, Lymph % (Auto) 23.9, [place] % (Auto) 8.3, Eos % (Auto) 4.0, Baso % (Auto) 0.8, Absolute Neuts (auto) 3.9, Absolute Lymphs (auto) 1.49, Nucleated RBC % 0, Sodium 141, Potassium 3.9, Chloride 108 H, Carbon Dioxide 28.0, Anion Gap 5, BUN 8, Creatinine 0.62, Estim Creat Clear Calc 93.79, Est GFR (MDRD) Af Amer 132, Est GFR (MDRD) Non-Af 109, BUN/Creatinine Ratio 12.8, Glucose 96, Calcium 9.1, Phosphorus 2.3 L, Magnesium 2.5, Total Bilirubin 0.50, AST 17, ALT 41, Alkaline Phosphatase 88, Total Protein 6.6, Albumin 3.4, Globulin 3.2, Albumin/Globulin Ratio 1.1 Assessment & Plan Assessment/Plan (1) Debility: (2) ICH (intracerebral hemorrhage): QUALIFIERS: Intracerebral hemorrhage etiology: nontraumatic Cerebral hemorrhage location: cerebral hemisphere, unspecified portion Laterality: right Qualified Code(s): I61.2 - Nontraumatic intracerebral hemorrhage in hemisphere, unspecified (3) Status post craniotomy: (4) Hipolito-neglect of left side: (5) LUE weakness: (6) Cognitive dysfunction: (7) Acute blood loss anemia: (8) Hypophosphatemia: (9) Acute bacterial meningitis: (10) Fatigue: QUALIFIERS: Fatigue type: other post infection and related fatigue syndromes Qualified Code(s): G93.39 - Other post infection and related fatigue syndromes (11) Anxiety and depression: PLAN: Plan PLAN PT for gait stability OT for ADL's ST for evaluation and therapy daily for 1 hour due to significant cognitive dysfunction. She is NOT safe to return home and be by herself. Executive function and safety awareness are severely impacted. Analgesics as needed Bowel protocol Fall precautions Assess for Anxiety/Depression - Has not been sleeping well at night but, tells me that the Trazodone has helped. Will increase the dose to 100 mg at 2100 nightly. GI prophylaxis not necessary.........she denies N/V/Abd pain. DVT prophylaxis with heparin Follow up with Dr. Sandip Douglas and neurology following DC from [facility] Rehab AM lab including CMP, CBC, Mag and Phos - all personally reviewed. This young woman was previously independent with all ADL's and driving. 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 At this point she would not be safe at home by herself due to impulsivity, poor safety awareness and severe cognitive dysfunction. She has left side neglect and should not be walking without SBA. In order to return to a fully functional status she will need acute rehab for 3-4 weeks and then OP therapy post DC. Charges/Coding Visit Charges Inpatient E&M: 60379 Init Hosp L3
--- NOTE | 2023-04-07 13:55 | CASEMGMT ---
Social Work Met with patient to complete initial assessment. Educated to O CM insurance approving through 04/13, DC 04/14, with a peer to peer appeal option. SW discussed DC plans, PLOF and barriers to DC with pt. 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 Pt reports she has noticing brain fog, slurred speech and confusion. Pt currently has IV ATB cannot have administer outside of work hours. Pt expressed anxiety, increased since incident. Pt explained she is concerned for her daughter who witnessed pt fall, etc. Pt tearful explaining concerns and situation. SW provided ongoing emotional and verbal support. SW validated feelings and acknowledged traumatic event for both pt and dtr. Pt expressed she wants to make sure she is back to normal when she goes home and sees her daughter so her dtr does not have to worry about her. Pt states she knows her dtr has a lot of questions, as well as pt. Pt is anxious about ignoring another headache, etc. SW validated feelings. Explained Dr will speak with pt and provide as much explanation to incident as possible and discuss prevention. Explained the goal during stay is to provide education to pt and family for success at home. SW offered counseling with pt and dtr to assist in processing incident. Discussed possible ways to for pt to speak with dtr, i.e. open communication, honesty about feelings. Offered for dtr to write down questions preparation for Team meeting Monday or Dr can speak with dtr to answer questions. Pt receptive and appreciative of time and conversation. SW offered ongoing assistance throughout stay. SW to provide counseling resources to pt at Team meeting. SW provided hand off to Dr. WHITNEY will continue to follow. BO HutsonW
--- NOTE | 2023-04-07 16:07 | PCM.RU.PYE ---
Admission Information Primary Diagnosis:: Debility, cognitive and physical, due to ICH with hx of craniotomy and stroke like sx. Status Changes from Prescreening?: No changes Identified Actual Problem List:: DVT (She had peripheral DVT in Left calf at [facility] but, this has resolved. ), UTI (resolved), Skin Intergrity, Pain, ALteration in Cmfrt, Cognitve Impr/Memory Loss, Depression, Alteration in Sleep, Mobility Impaired, Self Care Deficit and Alteration-Leisure Activ. Potential Problem List:: DVT, Bleeding, Infection, UTI, Aspiration, Falls, Skin Integrity and Depression Risk of Complications DVT: PEYTON Hose and - (SQ Heparin) Bleeding: Monitor Lab Values, Nursing to Teach Precautions for anti-coagulation therapy., Wound, if applicable, to be assessed every shift. and Stroke patients assessed for lethargy or change in status. Infection: Clinical Staff to Monitor for S/S of infection: and S/S of infection include fever, redness, warmth, etc. Urinary Tract Infection: Monitor for frequency, burning, discomfort, or incontinence. and Nursing will obtain urine sample for urinalysis and C&S when ordered. Aspiration: Clinical staff will monitor for coughing, drooling, congestion., Speech will evaluate swallowing and dsyphasia. and Nursing will monitor patient swallowing during meals. Falls: Patient will be evaluated for Fall Precautions and Patient will be placed on Fall Precautions as indicated per protocol. Skin Breakdown: Nursing will assess skin daily using assessment tool. and Nursing will place on Skin Breakdown Precautions as indicated. Pain: Clinical staff will assess patient's pain level per protocol., Medications will be given, if needed, and the pain level reassessed. and Other methods: Massage, distraction, decrease stimulus, etc. used PRN. Plan of Care Patient requires physician specializing in physical medicine and rehab oversight to provide close medical supervision of rehab issues including: Pain Management, Sleep Problems, Bowel and Bladder, Medical and co-morbidity Management, DVT prophylaxis, Rehabilitation Leadership and Coordination of treatment team Patient needs Physical Therapy: For a minimum of 1 hour and At least 5 out of 7 days Patient needs Physical Therapy to improve:: Mobility, Strengthening, Transfers, Stretching, ROM, Endurance, Stairs, Gait and Balance Patient needs Occupational Therapy: For a minimum of 1 hour and At least 5 out of 7 days Patient needs Occupational Therapy to improve ADL's incl.: Eating, Grooming, Bathing, Dressing, Toileting, Toilet transfers, Community Reintegration, Higher functioning activities, Household tasks, Adaptive Equipment, Splinting and Other activities as determined Patient requires speech therapy: For a minimum of 1 hour and At least 5 out of 7 days Patient requires speech therapy for: Swallowing, Cognition, Language Skills and Compensatory Strategies Patient requires 24/7 Rehabilitation Nursing for: Pain Issues, Identifying and preventing risk factors, Monitoring and reporting current medical conditions, Assisting with ambulation, transfer, and all ADL's, Teaching patients about disease process and medications, Family teaching, Providing safe environment, Bowel and Bladder Issues, Skin integrity and Medication Management Patient needs Solutions Market Consultant/ Case Management for: Discharge Planning, Arranging Home Equipment or Services and Family Interventions Patient needs Dietary and Nutrition Services for: Adequate Nutrition, Nutritional Supplements and Nutritional Education Goals Patient will remain: free from falls Patient will perform bed mobility at: MOD I level of assist. Patient will complete transfers from bed to chair at: MOD I level of assist. Patient will ambulate: - (500 ft with LRD on various surfaces at [place]) Patient will complete upper body dressing at: MOD I level of assist. Patient will complete lower body dressing at: MOD I level of assist. Patient will complete toileting at: MOD I level of assist. Patient will perform bathing at: Standby Assist. Patient will complete grooming at: MOD I level of assist. Patient will complete home management skills at: MOD I level of assist. Patient will achieve: - (1 flight of stairs with 1-2 HR's to allow access to the bedroom) Patient will have pain level of: of 3 or less Patient's skin will: remain intact Patient will receive: adequate nutrition. Discharge Planning Pt Prognosis for Sig. Practical Improv. w/in Reasonable Time: Good Estimated Length of stay (days): 28 Anticipated D/C Destination: Home with Outpt Therapy Was Preadmission Assessment Accurate?: Yes
[2023-04-07 20:00] VITALS: BP 120/72; PULSE 80; RESP 18; TEMP 37.2; O2SAT 100
[2023-04-07 21:15] VITALS: PULSE 79
[2023-04-07] MEDS: MELATONIN 3 MG TABLET 9 MG PO (21:15)
[2023-04-07] MEDS: traZODone 100 MG Tablet PO (21:16)
[2023-04-07] MEDS: Atorvastatin Calcium 40 MG Tablet PO (21:17)
[2023-04-07] MEDS: 0.9 % NaCl (Sterile) Posiflush 10 mL IV (21:17)
--- NOTE | 2023-04-08 05:00 | NURSING ---
Patient has been impulsive during the night requiring max cues from staff. Patient not understanding call [place] use. Gait is very unsteady and ataxic. Patient hallucinating thinking her mother was in the hallway.
[2023-04-08] MEDS: Meropenem 2 GM in 0.9% Normal Saline (100mL Bag) 100 ML IV ×3 (05:36→21:52)
[2023-04-08] MEDS: 0.9 % NaCl (Sterile) Posiflush 10 mL IV ×3 (05:37→23:24)
[2023-04-08] MEDS: Acetaminophen 325 MG Tablet 650 MG PO (06:53)
[2023-04-08 07:15] VITALS: O2SAT 98
[2023-04-08 07:23] VITALS: BP 115/68; PULSE 85; RESP 17; TEMP 36.7; O2SAT 95
[2023-04-08] MEDS: Potassium Chloride Oral Tablet 20 MEQ PO (08:42)
[2023-04-08] MEDS: Heparin Injection (Vial) 5,000 UNIT/ML VIAL 5000 UNIT SC ×2 (08:42→21:55)
[2023-04-08] MEDS: Folic Acid 1 MG Tablet PO (08:43)
[2023-04-08] MEDS: Aspirin 81 MG TAB.CHEW PO (08:50)
[2023-04-08 08:53] VITALS: PULSE 85
[2023-04-08] MEDS: Thiamine Hydrochloride 100 MG Tablet PO (08:53)
[2023-04-08] MEDS: Metoprolol Tartrate 25 MG Tablet PO ×2 (08:53→21:46)
[2023-04-08] MEDS: Citalopram 40 MG TABLET 20 MG PO (08:55)
[2023-04-08 11:35] LABS: Vancomycin, Trough Level 20.8 ug/mL (5.0-15.0)
--- NOTE | 2023-04-08 12:14 | NURSING ---
pt transferred self to bathroom. After using the toilet, pt went to sink to wash hands and did not pullup underwear or pants. This nurse pointed this out to pt. Assisted pt back to chair, gait unsteady. Chair alarm on.
--- NOTE | 2023-04-08 13:19 | PCM.RX.CS ---
Consult Antibiotic Management Pharmacy has been consulted to manage selected antiobiotic: Vancomycin Type of Intervention Type of Consult: Follow-up Suspected Infection Suspected Infection: Bacteremia Prior Doses of Antibiotics Prior Doses of Antibiotics Received/Current Regimen: 04/07/23 @ 0013,1126,2325 Labs Labs: Sodium 141 mmol/L (136-145) 04/07/23 05:18 Potassium 3.9 mmol/L (3.5-5.1) 04/07/23 05:18 Chloride 108 mmol/L (98-107) H 04/07/23 05:18 Carbon Dioxide 28.0 mmol/L (21.0-32.0) 04/07/23 05:18 Anion Gap 5 (5-15) 04/07/23 05:18 BUN 8 mg/dL (7-18) 04/07/23 05:18 Creatinine 0.62 mg/dL (0.55-1.02) 04/07/23 05:18 Est GFR (MDRD) Af Amer 132 mL/min (>60) 04/07/23 05:18 Est GFR (MDRD) Non-Af 109 mL/min (>60) 04/07/23 05:18 BUN/Creatinine Ratio 12.8 RATIO (10-20) 04/07/23 05:18 Glucose 96 mg/dL (74-106) 04/07/23 05:18 Vancomycin Trough 20.8 ug/mL (5.0-15.0) H 04/08/23 10:50 Dosing Weight Weight used for dosin kg Estimated Creatinine Clearance Estimated Creatinine Clearance: 94 Goal Trough Goal Trough: 15-20 mcg/mL Pharmacy Plan for Drug Dosing Pharmacy Plan for Drug Dosing: Random Vancomycin level 04/08/23 @ 2200 Pharmacy Service will continue to monitor and adjust dosing as required. Date/Time Labs Ordered Labs to be done on [date and time ordered]: random level 04/08/23 @ 2200
[2023-04-08] MEDS: Vancomycin Trough/Random Due 1 LAB MC ×2 (14:32→23:14)
[2023-04-08] MEDS: traZODone 100 MG Tablet PO (21:45)
[2023-04-08] MEDS: OLANZapine 2.5 MG Tablet 5 MG PO (21:45)
[2023-04-08 21:46] VITALS: BP 134/86; PULSE 85
[2023-04-08] MEDS: Atorvastatin Calcium 40 MG Tablet PO (21:46)
[2023-04-08] MEDS: MELATONIN 3 MG TABLET 9 MG PO (21:50)
[2023-04-08] MEDS: Senna/Docusate Sodium 1 Tablet 2 TABLET PO (21:51)
[2023-04-08 22:00] VITALS: BP 132/65; PULSE 85; RESP 18; TEMP 36.7; O2SAT 100
[2023-04-08 22:33] LABS: Vancomycin, Random Level 11.6 ug/mL (0.0-15.0)
[2023-04-08] MEDS: Vancomycin IV 1,000 MG/200 ML BAG 200 MG IV (23:24)
--- NOTE | 2023-04-08 23:43 | PCM.RX.CS ---
Consult Antibiotic Management Pharmacy has been consulted to manage selected antiobiotic: Vancomycin Type of Intervention Type of Consult: Follow-up Suspected Infection Suspected Infection: Meningitis Labs Labs: Sodium 141 mmol/L (136-145) 04/07/23 05:18 Potassium 3.9 mmol/L (3.5-5.1) 04/07/23 05:18 Chloride 108 mmol/L (98-107) H 04/07/23 05:18 Carbon Dioxide 28.0 mmol/L (21.0-32.0) 04/07/23 05:18 Anion Gap 5 (5-15) 04/07/23 05:18 BUN 8 mg/dL (7-18) 04/07/23 05:18 Creatinine 0.62 mg/dL (0.55-1.02) 04/07/23 05:18 Est GFR (MDRD) Af Amer 132 mL/min (>60) 04/07/23 05:18 Est GFR (MDRD) Non-Af 109 mL/min (>60) 04/07/23 05:18 BUN/Creatinine Ratio 12.8 RATIO (10-20) 04/07/23 05:18 Glucose 96 mg/dL (74-106) 04/07/23 05:18 Vancomycin Trough 20.8 ug/mL (5.0-15.0) H 04/08/23 10:50 Random Vancomycin 11.6 ug/mL (0.0-15.0) 04/08/23 22:04 Dosing Weight Weight used for dosin.9 kg Estimated Creatinine Clearance Estimated Creatinine Clearance: 94 Goal Trough Goal Trough: 15-20 mcg/mL Pharmacy Plan for Drug Dosing Pharmacy Plan for Drug Dosing: Random vancomycin level drawn 22.5hrs post-dose was 11.6. Per dosing calculator, a new dose of 1000mg q12h should give an estimated new trough of 18.7. Will initiate this now and draw a trough level prior to fourth dose of the new regimen. Pharmacy Service will continue to monitor and adjust dosing as required. Follow-Up Labs Follow-Up Labs: Trough: Vancomycin Date/Time Labs Ordered Labs to be done on [date and time ordered]: 04/10/23 @1100
[2023-04-09] MEDS: Meropenem 2 GM in 0.9% Normal Saline (100mL Bag) 100 ML IV ×3 (05:53→21:33)
[2023-04-09] MEDS: 0.9% Normal Saline (250mL Bag) 250 ML 15 ML IV (05:54)
[2023-04-09 07:53] VITALS: BP 125/75; PULSE 99; RESP 16; TEMP 36.8; O2SAT 98
[2023-04-09] MEDS: Heparin Injection (Vial) 5,000 UNIT/ML VIAL 5000 UNIT SC ×2 (08:52→20:28)
[2023-04-09] MEDS: Aspirin 81 MG TAB.CHEW PO (08:52)
[2023-04-09] MEDS: Folic Acid 1 MG Tablet PO (08:52)
[2023-04-09 08:53] VITALS: BP 125/75; PULSE 99
[2023-04-09] MEDS: Potassium Chloride Oral Tablet 20 MEQ PO (08:53)
[2023-04-09] MEDS: Citalopram 40 MG TABLET 20 MG PO (08:53)
[2023-04-09] MEDS: Metoprolol Tartrate 25 MG Tablet PO ×2 (08:53→20:29)
[2023-04-09] MEDS: Thiamine Hydrochloride 100 MG Tablet PO (08:53)
[2023-04-09 09:50] VITALS: BMI 25.3
[2023-04-09 11:24] VITALS: O2SAT 99
[2023-04-09] MEDS: Vancomycin IV 1,000 MG/200 ML BAG 200 MG IV (13:38)
[2023-04-09] MEDS: 0.9 % NaCl (Sterile) Posiflush 10 mL IV ×2 (13:43→21:34)
[2023-04-09] MEDS: OLANZapine 2.5 MG Tablet 5 MG PO (20:28)
[2023-04-09] MEDS: traZODone 100 MG Tablet PO (20:28)
[2023-04-09 20:29] VITALS: BP 107/67; PULSE 80
[2023-04-09] MEDS: Atorvastatin Calcium 40 MG Tablet PO (20:29)
[2023-04-09] MEDS: MELATONIN 3 MG TABLET 9 MG PO (20:30)
[2023-04-09] MEDS: Senna/Docusate Sodium 1 Tablet 2 TABLET PO (20:30)
[2023-04-09 22:00] VITALS: BP 110/43; PULSE 57; RESP 19; TEMP 37.5; O2SAT 94
[2023-04-10] MEDS: Vancomycin IV 1,000 MG/200 ML BAG 200 MG IV ×2 (01:25→13:47)
[2023-04-10] MEDS: 0.9 % NaCl (Sterile) Posiflush 10 mL IV ×2 (01:26→13:45)
[2023-04-10] MEDS: Meropenem 2 GM in 0.9% Normal Saline (100mL Bag) 100 ML IV ×3 (05:50→22:45)
[2023-04-10 06:00] LABS: Absolute Lymphocyte Count 1.41 X10^3/uL (0.83-4.51); Absolute Neutrophil Count 3.8 X10^3/uL (2.0-7.7); Basophil# 0.06 X10^3/uL; Eosinophil# 0.39 X10^3/uL; Eosinophils% 6.2 % (0-5); Hematocrit 35.5 % (37-47); Hemoglobin 11.7 g/dL (12.0-15.0); Lymphocyte # 1.41 X10^3/ul (0.83-4.51); Lymphocyte % 22.5 % (19-41); Mean Corpuscular Hgb 32.1 pg (27.0-32.0); Mean Corpuscular Volume 97.3 fL (81-99); Mean Platelet Vol. 9.6 fl (6.2-12.0); Monocyte# 0.56 X10^3/uL; Monocyte% 8.9 % (0-10); NRBC Flagged by Analyzer 0 % (0-5); Neutrophil # 3.82 X10^3/uL (2.7-7.7); Neutrophil % 60.9 % (47-70); Platelet Count 306 K/mm3 (150-450); RBC Distribution Width SD 46.2 fl (35.1-43.9); Red Blood Count 3.65 M/mm3 (4.2-5.4); White Blood Count 6.3 K/mm3 (4.4-11.0)
[2023-04-10 06:48] LABS: Creatinine, Serum 0.59 mg/dL (0.55-1.02); EST Glomerular Filtration Rate 115 mL/min (>60); Est Glom Filt Rate - Afr Amer 139 mL/min (>60); Estimated Creatinine Clearance 98.56 ml/min
[2023-04-10 07:37] VITALS: BP 108/62; PULSE 76; RESP 14; TEMP 37.3; O2SAT 97
[2023-04-10] MEDS: Acetaminophen 325 MG Tablet 650 MG PO (07:57)
[2023-04-10] MEDS: Aspirin 81 MG TAB.CHEW PO (07:58)
[2023-04-10] MEDS: Senna/Docusate Sodium 1 Tablet 2 TABLET PO ×2 (07:58→20:59)
[2023-04-10] MEDS: Folic Acid 1 MG Tablet PO (07:58)
[2023-04-10] MEDS: Citalopram 40 MG TABLET 20 MG PO (07:58)
[2023-04-10 07:59] VITALS: PULSE 80
[2023-04-10] MEDS: Metoprolol Tartrate 25 MG Tablet PO ×2 (07:59→21:04)
[2023-04-10] MEDS: Thiamine Hydrochloride 100 MG Tablet PO (07:59)
[2023-04-10] MEDS: Potassium Chloride Oral Tablet 20 MEQ PO (07:59)
[2023-04-10] MEDS: Heparin Injection (Vial) 5,000 UNIT/ML VIAL 5000 UNIT SC ×2 (09:28→21:02)
--- NOTE | 2023-04-10 10:00 | NURSING ---
Patient's neurosurgeon Dr. Kruger's office called to report that she needs a repeat CT of brain on or around April 19 to reassess her ICH status. Patient is still impulsive, forgetful, needs frequent reminders and cues, and can hallucinate at times. She is tolerating therapy well. Patient needs x1 assist from staffing due to balance is ataxic and her feet cross over each other with ambulation at times.
--- NOTE | 2023-04-10 13:02 | CASEMGMT ---
Social Work IDT met with patient, and mother for Team meeting. Discussed patient's progress in PT/OT/ST/SN. Educated to MMO CM insurance with NRD 04/13, EDC 04/14. IDT recommending continued stay as pt is not at PLOF and unable to be alone during the day at DC. agreed to complete P2P appeal for continued stay. Discussed pt's hallucinations, anxiety, impulsivity, distractibility and memory impairment. Pt also has periods of loss of balance and remains on IV ATB. Currently pt would not be able to return to work or be home alone at any period of time. Pt is making improvements but intensive therapy. SW provided counseling resources. Answered family's questions. SW will continue to follow for DC planning. Asha Gardner, ASSOCIATE SPA DIRECTOR ADDICTION PROFESSIONAL
[2023-04-10 13:18] LABS: Vancomycin, Trough Level 15.2 ug/mL (5.0-15.0)
--- NOTE | 2023-04-10 15:07 | PCM.RX.CS ---
Consult Antibiotic Management Pharmacy has been consulted to manage selected antiobiotic: Vancomycin Type of Intervention Type of Consult: Follow-up Suspected Infection Suspected Infection: Meningitis Prior Doses of Antibiotics Prior Doses of Antibiotics Received/Current Regimen: Currently on 1000mg iv q12h. Labs Labs: Sodium 141 mmol/L (136-145) 04/07/23 05:18 Potassium 3.9 mmol/L (3.5-5.1) 04/07/23 05:18 Chloride 108 mmol/L (98-107) H 04/07/23 05:18 Carbon Dioxide 28.0 mmol/L (21.0-32.0) 04/07/23 05:18 Anion Gap 5 (5-15) 04/07/23 05:18 BUN 8 mg/dL (7-18) 04/07/23 05:18 Creatinine 0.59 mg/dL (0.55-1.02) 04/10/23 05:16 Est GFR (MDRD) Af Amer 139 mL/min (>60) 04/10/23 05:16 Est GFR (MDRD) Non-Af 115 mL/min (>60) 04/10/23 05:16 BUN/Creatinine Ratio 12.8 RATIO (10-20) 04/07/23 05:18 Glucose 96 mg/dL (74-106) 04/07/23 05:18 Vancomycin Trough 15.2 ug/mL (5.0-15.0) H 04/10/23 12:48 Random Vancomycin 11.6 ug/mL (0.0-15.0) 04/08/23 22:04 Dosing Weight Weight used for dosin kg Estimated Creatinine Clearance Estimated Creatinine Clearance: 99 ml/min Pharmacy Plan for Drug Dosing Pharmacy Plan for Drug Dosing: Trough today ~11 hrs post dose was 15.2 and in desired therapeutic range. Recommend continuing same dose of 1000mg iv q12h. New trough ordered for before another 4th dose per protocol. Pharmacy Service will continue to monitor and adjust dosing as required. Follow-Up Labs Follow-Up Labs: Trough: Vancomycin (04.12.23 @0100)
--- NOTE | 2023-04-10 16:55 | PN_ITS ---
Subjective Subjective Lola was seen on team rounds today. Her Dada and her mother Elisa were present in the room for rounds. All questions were answered to their satisfaction. Afebrile VSS Maintaining appropriate oxygen saturation on RA Oral intake is good Discussed with nursing - She is impulsive and gets up without calling the nurse but, when the alarm goes off it reminds her to wait for the nurses before moving any further. Reviewed the PT/OT/ST notes Medication list reviewed. Lola tells me that she is not sleeping well at night, even with the Olanzapine and Trazodone at bedtime. the nurse who was on Monday night told me that she slept well that night. She tells me that she can not turn her brain. I wonder if she is perseverating on not being able to sleep and she can not remember that she was able to sleep. She denies cephalgia, neck stiffness, CP, SOB, cough, Abd pain, dysuria, and calf tenderness. She is still having some auditory hallucinations. She is confused at times. She was going in and out of other rooms looking for her mother........her mother has been ill recently with PNA. Her mother was here to visit this weekend but, not when Lola was looking for her. Her short term memory is poor. She has significant cognitive dysfunction and needs intensive ST to help her. Objective Data Objective Data Vital Signs: Vital Signs Temp Pulse Resp BP Pulse Ox O2 Del Method 99.1 F 80 14 108/62 97 Room Air 04/10/23 07:37 04/10/23 07:59 04/10/23 07:37 04/10/23 07:37 04/10/23 07:37 04/10/23 07:37 Oxygen Delivery Method Room Air Weight: 143 lb Body Mass Index (BMI) 25.3 Intake & Output: Intake and Output for Last 24 Hours 04/08/23 04/09/23 04/10/23 23:59 23:59 23:59 Intake Total 945 / 945 1480 / 1480 780 / 780 Balance 945 / 945 1480 / 1480 780 / 780 Lab / Micro Data 04/10/23 05:16 04/10/23 05:16 Labs: Laboratory Results - last 24 hr 04/10/23 05:16: WBC 6.3, RBC 3.65 L, Hgb 11.7 L, Hct 35.5 L, MCV 97.3, MCH 32.1 H, MCHC 33.0, RDW Std Deviation 46.2 H, RDW Coeff of Cirilo 13.0, Plt Count 306, MPV 9.6, Immature Gran % (Auto) 0.500, Neut % (Auto) 60.9, Lymph % (Auto) 22.5, Long % (Auto) 8.9, Eos % (Auto) 6.2 H, Baso % (Auto) 1.0, Absolute Neuts (auto) 3.8, Absolute Lymphs (auto) 1.41, Nucleated RBC % 0, Creatinine 0.59, Estim Creat Clear Calc 98.56, Est GFR (MDRD) Af Amer 139, Est GFR (MDRD) Non-Af 115 04/10/23 12:48: Vancomycin Trough 15.2 H Physical Exam Const alert and no apparent distress Constitutional Narrative: Making good eye contact, appropriate Resp normal respiratory effort, no use of accessory muscles and clear to auscultation bilaterally Resp Narrative: Not tachypneic and no conversational dyspnea. Cardio regular rate, regular rhythm, no murmurs, no rub and no gallops GI normal to inspection, nondistended, normoactive bowel sounds and non-tender GI Narrative: No guarding with palpation. Extremity no clubbing, cyanosis or edema Skin Skin Narrative: No rashes, no skin breakdown. Crani incision is healing well. General Skin Exam: no breakdown Rashes: no rashes Neuro oriented x3 and CN's II-XII intact bilaterally Neuro Narrative: She is alert. She could not tell me how old she is but, she was able to tell me the month. She only scored 15/[address] cognitive assessment. She has no facial droop but, the eyebrows do not elevate symmetrically........the R eyebrow is flattened and does not elevate. Her drivers license picture shows that they are both even so I presume this is new. No visual loss but, she has L side neglect and is not acknowledging things that are on her left side. She is walking into the left side of the doorway to her room and she grabs the walker with only the R hand. No ataxia. No extinction. She has droop with the LUE but, it does not hit the bed. She feels as though she is leaning to one side. She is impulsive and also restless. She slurred some of her words. She also has trouble word finding. Coordination / Balance: tyhumg-sv-cdip test normal and avod-wl-rwnc test normal Psych Psych Narrative: Restless, polite, making good eye contact. No flight of ideas. Tells me that she feels somewhat depressed about recent illness but, prior to the ICH she was not depressed. she does appear anxious. Conversant and relating well to staff. She was having both visual and auditory hallucinations while at the [facility] but, these have resolved. Thought Content: No suicidality, No homicidality and hallucination(s) Positive for auditory Assessment & Plan Assessment/Plan (1) Debility: (2) ICH (intracerebral hemorrhage): QUALIFIERS: Cerebral hemorrhage location: cerebral hemisphere, unspecified portion Intracerebral hemorrhage etiology: nontraumatic Laterality : right Qualified Code(s): I61.2 - Nontraumatic intracerebral hemorrhage in hemisphere, unspecified (3) Status post craniotomy: (4) Hipolito-neglect of left side: (5) LUE weakness: (6) Cognitive dysfunction: (7) Acute blood loss anemia: (8) Hypophosphatemia: (9) Acute bacterial meningitis: (10) Fatigue: QUALIFIERS: Fatigue type: other post infection and related fatigue syndromes Qualified Code(s): G93.39 - Other post infection and related fatigue syndromes (11) Anxiety and depression: PLAN: Plan 1. Continue therapy 2. Will alert the night nurses tonight to pay particular attention to how she is sleeping. No change to the medication yet. 3. Consider adding Buspar for anxiety. Will continue to observe. She is able to do her therapy and she has been very cooperative. 4. she is perseverating on the scab over the incision near the hairline and wants some cream to put on it which is not necessary and I told her why. The scab will fall off on its own and she is to keep her hands off it. 5. she confirmed for me that she has been diagnosed with ADD in the past and she was taking Adderall 1 mg BID until 1 month ago. It was helping her but, it caused insomnia and she could not take it regularly. She may do better with Strattera or Effexor/Duloxetine for the NE reuptake inhibitor in these 2 medications. They do have Strattera in the retail pharmacy in 25 mg and 40 mg tabs. Will need to closely monitor the BP if I elect to start Strattera. Treating the ADD or ADHD will likely help her to be able to focus better and she may do better on cognitive testing. Will start 25 mg daily in the AM and monito r the BP prior to meals and at HS. Charges/Coding Visit Charges Inpatient E&M: 89066 Subs Hosp L2
--- NOTE | 2023-04-10 17:00 | NURSING ---
Fax sent to [facility] to clarify Vanc stop date for IV ATB.
[2023-04-10 19:42] VITALS: BP 100/63; PULSE 76; RESP 16; TEMP 37.5; O2SAT 96
[2023-04-10] MEDS: MELATONIN 3 MG TABLET 9 MG PO (21:00)
[2023-04-10] MEDS: Atorvastatin Calcium 40 MG Tablet PO (21:00)
[2023-04-10] MEDS: OLANZapine 2.5 MG Tablet 5 MG PO (21:01)
[2023-04-10] MEDS: traZODone 100 MG Tablet PO (21:02)
[2023-04-10 21:04] VITALS: BP 110/64; PULSE 81
[2023-04-11] MEDS: Vancomycin IV 1,000 MG/200 ML BAG 200 MG IV ×2 (01:21→13:26)
[2023-04-11] MEDS: Meropenem 2 GM in 0.9% Normal Saline (100mL Bag) 100 ML IV ×3 (05:59→21:44)
[2023-04-11 06:48] VITALS: BP 101/56; PULSE 86; RESP 18; TEMP 37.1; O2SAT 98
[2023-04-11] MEDS: Acetaminophen 325 MG Tablet 650 MG PO ×2 (08:29→19:58)
[2023-04-11 09:12] VITALS: BP 101/56; PULSE 86; RESP 18; TEMP 37.1; O2SAT 98
[2023-04-11] MEDS: Heparin Injection (Vial) 5,000 UNIT/ML VIAL 5000 UNIT SC ×2 (09:16→21:41)
[2023-04-11] MEDS: Citalopram 40 MG TABLET 20 MG PO (09:16)
[2023-04-11] MEDS: Aspirin 81 MG TAB.CHEW PO (09:16)
[2023-04-11] MEDS: Folic Acid 1 MG Tablet PO (09:16)
[2023-04-11 09:18] VITALS: BP 101/56; PULSE 86
[2023-04-11] MEDS: Metoprolol Tartrate 25 MG Tablet PO ×2 (09:18→21:41)
[2023-04-11] MEDS: Potassium Chloride Oral Tablet 20 MEQ PO (09:18)
[2023-04-11] MEDS: Thiamine Hydrochloride 100 MG Tablet PO (09:19)
[2023-04-11] MEDS: Senna/Docusate Sodium 1 Tablet 2 TABLET PO ×2 (09:19→21:44)
[2023-04-11] MEDS: 0.9 % NaCl (Sterile) Posiflush 10 mL IV ×3 (09:30→21:45)
[2023-04-11] MEDS: 0.9% Normal Saline (250mL Bag) 250 ML 200 ML IV (13:27)
--- NOTE | 2023-04-11 13:43 | PN_ITS ---
Subjective Subjective Afebrile VSS Maintaining appropriate oxygen saturation on RA Oral intake is good Discussed with nursing - no problems that need addressed. Night nursing reported she slept pretty much all night. Reviewed the PT/OT/ST notes Medication list reviewed. She is c/o pain/myospasm in the posterior neck. Denies cephalgia. This is the first day for Strattera. She denies chest pain, shortness of breath, palpitations, lightheadedness, nausea/vomiting/abdominal pain, dysuria and calf pain. Still restless this morning but, she did not get the Strattera on time due to a problem with inpt pharmacy obtaining from the retail pharmacy. Objective Data Objective Data Vital Signs: Vital Signs Temp Pulse Resp BP Pulse Ox O2 Del Method 98.7 F 86 18 101/56 L 98 Room Air 04/11/23 09:12 04/11/23 09:18 04/11/23 09:12 04/11/23 09:18 04/11/23 09:12 04/11/23 10:00 Oxygen Delivery Method Room Air Weight: 143 lb Body Mass Index (BMI) 25.3 Intake & Output: Intake and Output for Last 24 Hours 04/09/23 04/10/23 04/11/23 23:59 23:59 23:59 Intake Total 1480 / 1480 920 / 920 480 / 480 Balance 1480 / 1480 920 / 920 480 / 480 Lab / Micro Data 04/10/23 05:16 04/10/23 05:16 Physical Exam Const alert Constitutional Narrative: Restless and fidgety. Trouble staying on topic when we are conversing. General Appearance: cooperative HEENT moist oral mucous membranes Eyes PERRL and EOMs intact bilaterally Resp normal respiratory effort, normal air movement and clear to auscultation bilaterally Effort and Inspection: Negative for tachypneic Cardio regular rate, regular rhythm, no murmurs, no rub and no gallops Cardio Narrative: No ectopy GI normal to inspection, nondistended, normoactive bowel sounds, soft to palpation and non-tender GI Narrative: No guarding with palpation Extremity no calf tenderness General Extremity: Negative for edema Skin General Skin Exam: no breakdown Rashes: no rashes Wound Narrative: The scalp incision is healing nicely. There is no dehiscence, no ricardo- incisional swelling and no ricardo-incisional erythema. There is no discharge. There are only a few small scabs left and she has not been picking at them. Neuro CN's II-XII intact bilaterally Neuro Narrative: She is still having some Left side neglect but, she is more aware of this and has been making some adjustments. She denies AGUILAR. LUE is weaker than the R. There is still drift with the LUE but it does not hit the bed. No trouble swallowing. No loss of sensation and no tactile extinction. Coordination / Balance: nhmqnp-at-spqk test normal and zilm-rr-izox test normal Psych cooperative Psych Narrative: Restless and has a deer in the headlights look on her face. She is in constant motion. Assessment & Plan Assessment/Plan (1) Debility: (2) ICH (intracerebral hemorrhage): QUALIFIERS: Intracerebral hemorrhage etiology: nontraumatic Cerebral hemorrhage location: cerebral hemisphere, unspecified portion Laterality: right Qualified Code(s): I61.2 - Nontraumatic intracerebral hemorrhage in hemisphere, unspecified (3) Status post craniotomy: (4) Hipolito-neglect of left side: (5) LUE weakness: (6) Cognitive dysfunction: (7) Acute blood loss anemia: (8) Hypophosphatemia: (9) Acute bacterial meningitis: (10) Fatigue: QUALIFIERS: Fatigue type: other post infection and related fatigue syndromes Qualified Code(s): G93.39 - Other post infection and related fatigue syndromes (11) Anxiety and depression: PLAN: Plan 1. Continue therapy 2. Continue Strattera for treatment of ADD 3. Monitor blood pressure closely with the addition of Strattera to her drug regimen 4. She is not safe to be going home without 24/7 supervision at this time. She is very impulsive, loses her balance easily, is having trouble sequencing activity and is getting up and walking around without calling the nurse or using an AD to help with balance. I am hopeful that getting the ADD under control will help with memory and cognition. 5. Continue antibiotics with the last day being 04/14/2023 per her infectious disease doctor. 6. She will need a follow up CT brain after conclusion of the antibiotics. Charges/Coding Visit Charges Inpatient E&M: 12470 Subs Hosp L2
[2023-04-11 16:30] VITALS: BP 108/62; PULSE 86; RESP 16; TEMP 37.2; O2SAT 97
--- NOTE | 2023-04-11 21:17 | NURSING ---
Incontinence of urine and patient did not know it. Needs cues and redirection. Alert x3 but short term. Gait unsteady and unbalanced and x1 assist needed.
[2023-04-11 21:19] VITALS: BP 108/62; PULSE 86; RESP 16; TEMP 37.2; O2SAT 97
[2023-04-11] MEDS: OLANZapine 2.5 MG Tablet 5 MG PO (21:39)
[2023-04-11] MEDS: MELATONIN 3 MG TABLET 9 MG PO (21:40)
[2023-04-11] MEDS: Atorvastatin Calcium 40 MG Tablet PO (21:40)
[2023-04-11 21:41] VITALS: PULSE 86
[2023-04-11] MEDS: traZODone 100 MG Tablet PO (21:46)
[2023-04-12] VITALS (7 sets, daily range): BP systolic 97–113; BP diastolic 53–67; PULSE 82–83; RESP 16; TEMP 36.7–36.8; O2SAT 98
[2023-04-12] MEDS: Vancomycin IV 1,000 MG/200 ML BAG 200 MG IV ×2 (02:00→13:37)
[2023-04-12] MEDS: Meropenem 2 GM in 0.9% Normal Saline (100mL Bag) 100 ML IV ×3 (05:45→20:26)
[2023-04-12] MEDS: ATOMOXETINE HCL 25 MG CAPSULE PO (06:07)
[2023-04-12] MEDS: Heparin Injection (Vial) 5,000 UNIT/ML VIAL 5000 UNIT SC ×2 (08:24→20:19)
[2023-04-12] MEDS: Citalopram 40 MG TABLET 20 MG PO (08:25)
[2023-04-12] MEDS: Metoprolol Tartrate 25 MG Tablet PO ×2 (08:25→20:20)
[2023-04-12] MEDS: Thiamine Hydrochloride 100 MG Tablet PO (08:25)
[2023-04-12] MEDS: Senna/Docusate Sodium 1 Tablet 2 TABLET PO ×2 (08:25→20:27)
[2023-04-12] MEDS: Aspirin 81 MG TAB.CHEW PO (08:29)
[2023-04-12] MEDS: Folic Acid 1 MG Tablet PO (08:29)
[2023-04-12] MEDS: Potassium Chloride Oral Tablet 20 MEQ PO (08:29)
[2023-04-12 09:16] LABS: Vancomycin, Trough Level 19.3 ug/mL (5.0-15.0)
--- NOTE | 2023-04-12 09:54 | PN_ITS ---
Subjective Subjective Afebrile VSS-blood pressure is normal and the HR is also WNL. Maintaining appropriate oxygen saturation on RA Oral intake is good Discussed with nursing - no problems that need addressed. She has slept well the past few nights. Reviewed the PT/OT/ST notes - She was not retaining info with PT yesterday and had poor safety awareness. She was starting off into space and not able to focus. Had 4-5 losses of balance walking to her room with a FWW yesterday from the therapy room. Required assistance form PT to correct. She was picking up cones in the [address] yesterday and missed 2/10 cones. Having trouble with retention and sequencing. The OT helped her with her computer today and Lola had trouble logging in but, once logged in she was able to do some work. She had a shower with the OT today and she was able to ambulate to the bathroom at contact-guard assist. She completed a shower transfer at contact-guard assist using the grab bar in the shower seat. She completed bathing tasks at contact- guard assist/standby assist when standing for safety. She remained seated at the edge of the bed for dressing and dressed her upper body at set up in the lower body at contact-guard assist. She is more focused today. Medication list reviewed. Lola tells me that she feels like her brain is calm today. She tells me that she slept very well last night and she did not feel like she could not turn her brain off. She was able to do some work today and was able to concentrate and focus on what she was doing. She was resting in bed when I entered the room and when I talked with her she made good eye contact and she was not restless or fidgety. Her speech is no longer pressured and she does not have the wild look in her eyes. She asks me if it is normal to be so tired. I pointed out that the things she used to do without having to think about it, like walking and talking and focusing, are now requiring a lot of though and energy to get the proper sequencing PLUS she has been through a brain bleed, craniotomy, meningocele and bacterial meningitis so it will likely be 2-3 months before she feels back to her baseline. she was able to stay on topic speaking with me today without flight of ideas. She denies AGUILAR, neck pain, chest pain, shortness of breath, cough, palpitations, nausea/vomiting/abdominal pain, dysuria and calf tenderness. She is much happier and calmer today and more hopeful that she will get better. Objective Data Objective Data Vital Signs: Vital Signs Temp Pulse Resp BP Pulse Ox O2 Del Method 98.2 F 83 16 113/64 98 Room Air 04/12/23 06:09 04/12/23 08:25 04/12/23 06:09 04/12/23 06:09 04/12/23 06:09 04/12/23 06:09 Oxygen Delivery Method Room Air Weight: 143 lb Body Mass Index (BMI) 25.3 Intake & Output: Intake and Output for Last 24 Hours 04/10/23 04/11/23 04/12/23 23:59 23:59 23:59 Intake Total 920 / 920 1930 / 1930 1060 / 1060 Balance 920 / 920 1930 / 1930 1060 / 1060 Lab / Micro Data 04/10/23 05:16 04/10/23 05:16 Labs: Laboratory Results - last 24 hr 04/12/23 00:55: Vancomycin Trough 19.3 H Physical Exam Const alert and no apparent distress Constitutional Narrative: Much calmer today and not fidgeting. Making good eye contact with me and speech is not pressured. Looks rested today. General Appearance: cooperative HEENT moist oral mucous membranes Resp normal respiratory effort, no use of accessory muscles and clear to auscultation bilaterally Effort and Inspection: Negative for tachypneic or labored Cardio regular rate, regular rhythm and no gallops GI normal to inspection, nondistended, normoactive bowel sounds, non-tender and non-distended GI Narrative: no guarding with palpation Extremity Negative for no calf tenderness General Extremity: Negative for edema Skin General Skin Exam: no breakdown Rashes: no rashes Psych affect normal Appearance: appropriate Assessment & Plan Assessment/Plan (1) Debility: (2) ICH (intracerebral hemorrhage): QUALIFIERS: Intracerebral hemorrhage etiology: nontraumatic Cer ebral hemorrhage location: cerebral hemisphere, unspecified portion Laterality: right Qualified Code(s): I61.2 - Nontraumatic intracerebral hemorrhage in hemisphere, unspecified (3) Status post craniotomy: (4) Hipolito-neglect of left side: (5) LUE weakness: (6) Cognitive dysfunction: (7) Acute blood loss anemia: (8) Hypophosphatemia: (9) Acute bacterial meningitis: (10) Fatigue: QUALIFIERS: Fatigue type: other post infection and related fatigue syndromes Qualified Code(s): G93.39 - Other post infection and related fatigue syndromes (11) Anxiety and depression: (12) ADD (attention deficit disorder): PLAN: Plan 1. Continue therapy 2. Continue Strattera at the current dose......... she has not tolerated Adderall recently due to insomnia and racing heart. We will likely discharge on Strattera rather than going back to Adderall. 3. I think she will be able to make good progress with therapy now that she is able to focus, has no flight of ideas and is getting good sleep. She is more encouraged today than she has been recently about her ability to recover from the brain bleed. I would like to keep her 1 more week and then I feel she will be able to be discharged home safely with her mothers assistance when her is at work. 4. Will need to check with nursing when neurosurgery wanted the follow up CT brain to follow the meningocele. 5. Antibiotics will conclude on 04/14/23. 6. Recheck a CBC with diff and a BMP on Monday04/17/23. 7. Will need to follow up with ID and with neurosurgery post DC. Charges/Coding Visit Charges Inpatient E&M: 34140 Subs Hosp L2
[2023-04-12] MEDS: Acetaminophen 325 MG Tablet 650 MG PO (12:10)
[2023-04-12] MEDS: 0.9 % NaCl (Sterile) Posiflush 10 mL IV (13:37)
--- NOTE | 2023-04-12 16:15 | CASEMGMT ---
Social Work received update from insurance that pt was approved with NRD 04/17 and strongly anticipating DC 04/18. SW left voicemail with with detailed information. IDT updated. Will continue to follow. Asha Gardner, WINDOW TRIMMER APPRENTICE SCHOOL BASED THERAPIST
[2023-04-12] MEDS: MELATONIN 3 MG TABLET 9 MG PO (20:18)
[2023-04-12] MEDS: OLANZapine 2.5 MG Tablet 5 MG PO (20:19)
[2023-04-12] MEDS: traZODone 100 MG Tablet PO (20:19)
[2023-04-12] MEDS: Atorvastatin Calcium 40 MG Tablet PO (20:20)
[2023-04-13] VITALS (7 sets, daily range): BP systolic 99–108; BP diastolic 55–64; PULSE 67–86; RESP 16; TEMP 36.3–36.6; O2SAT 98–100
[2023-04-13] MEDS: Vancomycin IV 1,000 MG/200 ML BAG 200 MG IV ×2 (01:15→13:39)
[2023-04-13] MEDS: Meropenem 2 GM in 0.9% Normal Saline (100mL Bag) 100 ML IV ×3 (06:22→22:09)
[2023-04-13] MEDS: Acetaminophen 325 MG Tablet 650 MG PO (06:23)
[2023-04-13] MEDS: ATOMOXETINE HCL 25 MG CAPSULE PO (06:24)
[2023-04-13] MEDS: Potassium Chloride Oral Tablet 20 MEQ PO (08:22)
[2023-04-13] MEDS: Metoprolol Tartrate 25 MG Tablet PO ×2 (08:22→21:15)
[2023-04-13] MEDS: Heparin Injection (Vial) 5,000 UNIT/ML VIAL 5000 UNIT SC ×2 (08:22→21:16)
[2023-04-13] MEDS: Thiamine Hydrochloride 100 MG Tablet PO (08:22)
[2023-04-13] MEDS: Folic Acid 1 MG Tablet PO (08:22)
[2023-04-13] MEDS: Aspirin 81 MG TAB.CHEW PO (08:22)
[2023-04-13] MEDS: Citalopram 40 MG TABLET 20 MG PO (08:22)
[2023-04-13] MEDS: Senna/Docusate Sodium 1 Tablet 2 TABLET PO ×2 (08:22→21:17)
[2023-04-13] MEDS: OLANZapine 2.5 MG Tablet 5 MG PO (21:14)
[2023-04-13] MEDS: traZODone 100 MG Tablet PO (21:14)
[2023-04-13] MEDS: MELATONIN 3 MG TABLET 9 MG PO (21:16)
[2023-04-13] MEDS: Atorvastatin Calcium 40 MG Tablet PO (21:16)
[2023-04-14] VITALS (7 sets, daily range): BP systolic 101–113; BP diastolic 56–67; PULSE 87–93; RESP 17–18; TEMP 36.7–36.9; O2SAT 96–98; BMI 26.4
[2023-04-14] MEDS: Vancomycin IV 1,000 MG/200 ML BAG 200 MG IV (00:41)
[2023-04-14] MEDS: 0.9% Normal Saline (250mL Bag) 250 ML 15 ML IV (04:31)
[2023-04-14] MEDS: Meropenem 2 GM in 0.9% Normal Saline (100mL Bag) 100 ML IV ×3 (05:44→21:00)
[2023-04-14] MEDS: ATOMOXETINE HCL 25 MG CAPSULE PO (06:03)
--- NOTE | 2023-04-14 06:28 | NURSING ---
Pt set off PA and was found up from recliner self-transferring to bed. Pt asked if she could go next door to see Gris. When asked where she thought she was, she said, home, where Gris and my dogs are. Pt was reoriented to being in the hospital and pt stated that Gris was downstairs. Pt asked what she could do if she couldn't see her daughter, Gris? Staff attempted to redirect her attention to the hospital room and that this was not her home. Pt said, OK. Pt was reminded of safety precautions and call light use to alert staff of needs. Pt was repositioned into bed with call light within reach. Staff brought pt a cup of coffee and asked if she'd like some of the magazines from the table beside recliner. Pt declined.
[2023-04-14] MEDS: Folic Acid 1 MG Tablet PO (08:01)
[2023-04-14] MEDS: Citalopram 40 MG TABLET 20 MG PO (08:01)
[2023-04-14] MEDS: Aspirin 81 MG TAB.CHEW PO (08:01)
[2023-04-14] MEDS: Heparin Injection (Vial) 5,000 UNIT/ML VIAL 5000 UNIT SC ×2 (08:02→20:46)
[2023-04-14] MEDS: Potassium Chloride Oral Tablet 20 MEQ PO (08:02)
[2023-04-14] MEDS: Senna/Docusate Sodium 1 Tablet 2 TABLET PO ×2 (08:03→20:50)
[2023-04-14] MEDS: Thiamine Hydrochloride 100 MG Tablet PO (08:03)
[2023-04-14] MEDS: Acetaminophen 325 MG Tablet 650 MG PO (09:30)
[2023-04-14] MEDS: 0.9 % NaCl (Sterile) Posiflush 10 mL IV ×2 (13:37→20:55)
[2023-04-14] MEDS: 0.9% Normal Saline (250mL Bag) 250 ML 97 ML IV (13:37)
[2023-04-14] MEDS: OLANZapine 2.5 MG Tablet 5 MG PO (20:45)
[2023-04-14] MEDS: traZODone 100 MG Tablet PO (20:45)
[2023-04-14] MEDS: Metoprolol Tartrate 25 MG Tablet PO (20:48)
[2023-04-14] MEDS: Atorvastatin Calcium 40 MG Tablet PO (20:48)
[2023-04-14] MEDS: MELATONIN 3 MG TABLET 9 MG PO (20:50)
--- NOTE | 2023-04-15 00:11 | NURSING ---
pt set off alarms with impulsiveness and self transferring. Staff reiterated call light use, as well as the need for safety with transfer. Pt claimed that she was wide awake and had the need to get to the bathroom. Once in bathroom, staff reminded her that staff was present to assist with transfer but before staff could assist pt, pt shot up from toilet and headed to the sink. Staff is using gait belt with transfer and holding fast to pt with transfer d/t ataxia this hs. When pt was repositioned in bed, pt closed her eyes, after claiming she was wide awake, and was fast asleep before staff left the room.
[2023-04-15] MEDS: ATOMOXETINE HCL 25 MG CAPSULE PO (06:36)
[2023-04-15 07:00] VITALS: BP 120/66; PULSE 90; RESP 16; TEMP 36.6; O2SAT 98
[2023-04-15] MEDS: Citalopram 40 MG TABLET 20 MG PO (09:09)
[2023-04-15] MEDS: Polyethylene Glycol 3350 17 GM PACKET PO (09:09)
[2023-04-15] MEDS: Senna/Docusate Sodium 1 Tablet 2 TABLET PO (09:09)
[2023-04-15] MEDS: Folic Acid 1 MG Tablet PO (09:09)
[2023-04-15] MEDS: Aspirin 81 MG TAB.CHEW PO (09:09)
[2023-04-15] MEDS: Heparin Injection (Vial) 5,000 UNIT/ML VIAL 5000 UNIT SC ×2 (09:10→21:13)
[2023-04-15] MEDS: Thiamine Hydrochloride 100 MG Tablet PO (09:10)
[2023-04-15 11:00] VITALS: BP 104/60; PULSE 90
[2023-04-15 11:27] VITALS: BP 104/60; PULSE 90
[2023-04-15] MEDS: Metoprolol Tartrate 25 MG Tablet PO ×2 (11:27→21:15)
[2023-04-15] MEDS: Potassium Chloride Oral Tablet 20 MEQ PO (11:27)
[2023-04-15] MEDS: Acetaminophen 325 MG Tablet 650 MG PO (11:27)
[2023-04-15] MEDS: 0.9 % NaCl (Sterile) Posiflush 10 mL IV ×2 (11:34→21:17)
[2023-04-15 16:30] VITALS: BP 105/61; PULSE 86
[2023-04-15 21:00] VITALS: BP 108/60; PULSE 88; RESP 16; TEMP 37; O2SAT 99
[2023-04-15] MEDS: Atorvastatin Calcium 40 MG Tablet PO (21:13)
[2023-04-15] MEDS: traZODone 100 MG Tablet PO (21:13)
[2023-04-15] MEDS: MELATONIN 3 MG TABLET 9 MG PO (21:13)
[2023-04-15] MEDS: OLANZapine 2.5 MG Tablet 5 MG PO (21:13)
[2023-04-15 21:15] VITALS: PULSE 64
[2023-04-16 07:00] VITALS: BP 126/69; PULSE 88; RESP 16; TEMP 36.2; O2SAT 99
[2023-04-16] MEDS: Potassium Chloride Oral Tablet 20 MEQ PO (07:18)
[2023-04-16] MEDS: Aspirin 81 MG TAB.CHEW PO (07:18)
[2023-04-16] MEDS: Folic Acid 1 MG Tablet PO (07:18)
[2023-04-16] MEDS: ATOMOXETINE HCL 25 MG CAPSULE PO (07:19)
[2023-04-16 09:44] VITALS: PULSE 90
[2023-04-16] MEDS: Metoprolol Tartrate 25 MG Tablet PO ×2 (09:44→21:55)
[2023-04-16] MEDS: Thiamine Hydrochloride 100 MG Tablet PO (09:44)
[2023-04-16] MEDS: Citalopram 40 MG TABLET 20 MG PO (09:44)
[2023-04-16] MEDS: Heparin Injection (Vial) 5,000 UNIT/ML VIAL 5000 UNIT SC ×2 (09:44→21:54)
[2023-04-16] MEDS: Acetaminophen 325 MG Tablet 650 MG PO ×2 (10:00→19:40)
[2023-04-16 11:00] VITALS: BP 108/60; PULSE 90
[2023-04-16 16:25] VITALS: BP 107/45; PULSE 77
[2023-04-16] MEDS: MELATONIN 3 MG TABLET 9 MG PO (21:54)
[2023-04-16 21:55] VITALS: BP 109/61; PULSE 88
[2023-04-16] MEDS: Atorvastatin Calcium 40 MG Tablet PO (21:55)
[2023-04-16] MEDS: OLANZapine 2.5 MG Tablet 5 MG PO (21:55)
[2023-04-16] MEDS: traZODone 100 MG Tablet PO (21:55)
[2023-04-16 21:58] VITALS: BP 109/61; PULSE 86; RESP 16; TEMP 36.6; O2SAT 96
[2023-04-17] VITALS (7 sets, daily range): BP systolic 101–120; BP diastolic 59–68; PULSE 74–81; RESP 16–17; TEMP 36.3–36.6; O2SAT 96–99
[2023-04-17 05:55] LABS: Absolute Lymphocyte Count 1.84 X10^3/uL (0.83-4.51); Absolute Neutrophil Count 3.6 X10^3/uL (2.0-7.7); Basophil# 0.07 X10^3/uL; Eosinophil# 0.85 X10^3/uL; Eosinophils% 12.2 % (0-5); Hematocrit 36.8 % (37-47); Hemoglobin 11.8 g/dL (12.0-15.0); Lymphocyte # 1.84 X10^3/ul (0.83-4.51); Lymphocyte % 26.4 % (19-41); Mean Corp Hgb Conc 32.1 g/dL (32-36); Mean Corpuscular Hgb 31.2 pg (27.0-32.0); Mean Corpuscular Volume 97.4 fL (81-99); Mean Platelet Vol. 9.3 fl (6.2-12.0); Monocyte# 0.58 X10^3/uL; Monocyte% 8.3 % (0-10); NRBC Flagged by Analyzer 0 % (0-5); Neutrophil % 51.8 % (47-70); Platelet Count 301 K/mm3 (150-450); RBC Distribution Width CV 12.4 % (11.6-14.6); RBC Distribution Width SD 44.5 fl (35.1-43.9); Red Blood Count 3.78 M/mm3 (4.2-5.4)
[2023-04-17 06:22] LABS: Creatinine, Serum 0.72 mg/dL (0.55-1.02); EST Glomerular Filtration Rate 92 mL/min (>60); Est Glom Filt Rate - Afr Amer 111 mL/min (>60); Estimated Creatinine Clearance 80.76 ml/min
[2023-04-17] MEDS: Acetaminophen 325 MG Tablet 650 MG PO (07:30)
[2023-04-17] MEDS: 0.9 % NaCl (Sterile) Posiflush 10 mL IV (07:30)
[2023-04-17] MEDS: Aspirin 81 MG TAB.CHEW PO (08:04)
[2023-04-17] MEDS: ATOMOXETINE HCL 25 MG CAPSULE PO (08:05)
[2023-04-17] MEDS: Folic Acid 1 MG Tablet PO (08:05)
--- NOTE | 2023-04-17 08:07 | CASEMGMT ---
Social Work IDT met with patient, and mother for Team meeting. Discussed patient's progress in PT/OT/ST/SN. Educated to MMO CM insurance with NRD 04/17 and issued DC 04/18. Family is in agreement with DC. IDT recommending OP therapy and FWW. Pt states she has all DME and agreeable to OP therapy at [facility]. SW encouraged and reminded of counseling after DC. to transport home. Mother will be staying with pt initially at OR for safety and assistance. SW faxed referral to [facility] for PT/OT/ST. Plan: DC home with family 04/18, [facility] PT/OT/ST Asha Gardner REPA[employer] SERVICE CONSULTANT
--- NOTE | 2023-04-17 08:34 | VDUE_ITS ---
Reason For Study: DVT LUE Right Proximal Left Proximal Right subclavian vein is spontaneous, widely Left jugular vein is spontaneous, widely patent, phasic, with no intraluminal patent, phasic, with no intraluminal echogenicity noted. echogenicity noted. Left subclavian vein is spontaneous, widely patent, phasic, with no intraluminal echogenicity noted. Left Arm Left axillary vein is spontaneous, patent, phasic, competent, compressible and demonstrates augmentation. Lt Distal Brachial V is NON COMPRESSIBLE. Left cephalic vein is compressible. Lt BasilicV is non dilated and partially compressible. Left Lower Arm Left radial vein is compressible. Left ulnar vein is compressible. VL/Venous Duplex US, Unilateral Interpretation Summary Acute deep vein thrombosis is noted in the left brachial vein Chronic superficial vein thrombosis is noted in the left basilic vein Ordering Physician: Sharif Pradhan Chi Referring Physician: Sandip Douglas Performed By: Bibiana Snowden, KRISTY, RVT ???
--- NOTE | 2023-04-17 08:35 | VDLE_ITS ---
Reason For Study: DVT LLE RIGHT LEFT CFV is compressible, spontaneous, phasic, GSV is normal. competent and demonstrates normal CFV is compressible, spontaneous, phasic, augmentation. competent, and demonstrates normal Procedure augmentation. This is a venous duplex using B-mode, color FV is compressible, spontaneous, phasic, flow and spectral Doppler. competent and demonstrates normal Exam performed portable in patient room. augmentation. A preliminary report was called and/or faxed POP V is compressible, spontaneous, phasic, to Patient's RN. competent and demonstrates normal augmentation. T/P Trunk is compressible. PTV is compressible. LT PerV is compressible. VL/Venous Duplex US, Unilateral Interpretation Summary Deep veins of the left lower extremity are patent and compressible segmentally. There is no evidence of left lower extremity deep vein thrombosis. The left great saphenous vein leif ears patent and compressible segmentally. Ordering Physician: Sharif Pradhan Chi Referring Physician: Sandip Douglas Performed By: Bibiana Snowden RDCS, RVT
[2023-04-17] MEDS: traMADol 50 MG Tablet PO (08:39)
[2023-04-17] MEDS: Thiamine Hydrochloride 100 MG Tablet PO (08:43)
[2023-04-17] MEDS: Potassium Chloride Oral Tablet 20 MEQ PO (08:44)
[2023-04-17] MEDS: Heparin Injection (Vial) 5,000 UNIT/ML VIAL 5000 UNIT SC ×2 (08:44→20:07)
[2023-04-17] MEDS: Metoprolol Tartrate 25 MG Tablet PO ×2 (08:44→20:14)
[2023-04-17] MEDS: Polyethylene Glycol 3350 17 GM PACKET PO (08:45)
[2023-04-17] MEDS: Citalopram 40 MG TABLET 20 MG PO (08:45)
[2023-04-17] MEDS: Senna/Docusate Sodium 1 Tablet 2 TABLET PO ×2 (08:45→20:15)
--- NOTE | 2023-04-17 10:29 | NURSING ---
Received call back from Dr Hughes's office, spoke with Tasha. Per Dr Hughes pt does not need to f/u with him and PICC line can be removed.
--- NOTE | 2023-04-17 19:00 | EX.DISCHREH ---
Providers Date of Admission: 04/06/23 Primary Care Physician: Dr. Sandip Douglas DO Reason For Visit: ICH Diagnosis Discharge Diagnosis (1) Debility: Status: Acute Code(s): R53.81 - Other malaise (2) ICH (intracerebral hemorrhage): Status: Acute Code(s): I61.9 - Nontraumatic intracerebral hemorrhage, unspecified Qualifiers: Intracerebral hemorrhage etiology: nontraumatic Cerebral hemorrhage location: cerebral hemisphere, unspecified portion Laterality: right Qualified Code(s): I61.2 - Nontraumatic intracerebral hemorrhage in hemisphere, unspecified (3) Status post craniotomy: Status: Acute Code(s): Z98.890 - Other specified postprocedural states (4) Hipolito-neglect of left side: Status: Acute Code(s): R41.4 - Neurologic neglect syndrome (5) LUE weakness: Status: Acute Code(s): R29.898 - Other symptoms and signs involving the musculoskeletal system (6) Cognitive dysfunction: Status: Acute Code(s): F09 - Unspecified mental disorder due to known physiological condition (7) Acute blood loss anemia: Status: Acute Code(s): D62 - Acute posthemorrhagic anemia (8) Hypophosphatemia: Status: Acute Code(s): E83.39 - Other disorders of phosphorus metabolism (9) Acute bacterial meningitis: Status: Acute Code(s): G00.9 - Bacterial meningitis, unspecified (10) Fatigue: Status: Acute Code(s): R53.83 - Other fatigue Qualifiers: Fatigue type: other post infection and related fatigue syndromes Qualified Code(s): G93.39 - Other post infection and related fatigue syndromes (11) Anxiety and depression: Status: Acute Code(s): F41.9 - Anxiety disorder, unspecified; F32.A - Depression, unspecified (12) ADD (attention deficit disorder): Status: Acute Code(s): F98.8 - Other specified behavioral and emotional disorders with onset usually occurring in childhood and adolescence Medications at Discharge Home Medications aspirin 81 mg chewable tablet 1 tab PO DAILY heart health 04/06/23 thiamine HCl (vitamin B1) 100 mg tablet (Vitamin B-1) 100 mg PO DAILY supplement 04/06/23 acetaminophen 325 mg tablet 650 mg (2 x 325 mg) PO Q4H PRN Pain Score 1-10 #0 tabs 04/17/23 atomoxetine 25 mg capsule (Strattera) 25 mg PO 0700 30 days #30 caps 04/17/23 atorvastatin 40 mg tablet 40 mg PO QHS 30 days #30 tabs 04/17/23 citalopram 40 mg tablet 20 mg (1/2 x 40 mg) PO DAILY 30 days #15 tabs 04/17/23 folic acid 1 mg tablet 1 mg PO DAILYCM 30 days #30 tabs 04/17/23 heparin (porcine) 5,000 unit/mL injection solution 5,000 unit subcut Q12 30 days #60 mL 04/17/23 metoprolol tartrate 25 mg tablet 25 mg PO BID 30 days #60 tabs 04/17/23 olanzapine 2.5 mg tablet 5 mg (2 x 2.5 mg) PO 2100 30 days #60 tabs 04/17/23 potassium chloride 20 mEq tablet,extended release(part/cryst) (Klor-Con M) 20 meq PO DAILY 30 days #30 tabs 04/17/23 thiamine HCl (vitamin B1) 100 mg tablet (Vitamin B-1) 100 mg PO DAILY 30 days #30 tabs 04/17/23 trazodone 100 mg tablet 100 mg PO 2100 30 days #30 tabs 04/17/23 Hospital Course Operations - (Craniotomy.) Procedures None Summary of Care Provided Minutes Spent on Discharge: 35 Hospital Course: 47 year old female with below past medical history hospitalized for brain bleed, craniotomy, meningocele, bacterial meningitis, admitted to for 3 hours daily rehabilitation, strengthening, intravenous antibiotics, prior to discharge home with . Dr. Chavez added Efrenera with excellent results. 04/17/2023 Doppler ultrasound for acute DVT left upper extremity, will discharge home on subcutaneous heparin, consider vascular surgery and/or neurology referral to assist in anticoagulation decisions in light of recent traumatic brain bleed. Discharge home with 04/18/2023, [facility] PT/OT/ST. Physical Exam Const alert General Appearance: cooperative HEENT normocephalic Eyes PERRL and EOMs intact bilaterally Neck supple, no JVD and no carotid bruits Resp normal respiratory effort, normal air movement and clear to auscultation bilaterally Cardio regular rate and regular rhythm GI normal to inspection, nondistended, normoactive bowel sounds, non-tender and non-distended Extremity normal capillary refill General Extremity: Negative for edema Skin no rashes or lesions noted General Skin Exam: no breakdown Neuro Neuro Narrative: Left hemiparesis. Psych affect normal Appearance: appropriate Weight / BMI Weight Weight: 67.8 kg Body Mass Index (BMI) 26.4 ABG / Lab / Microbiology Data 04/17/23 05:10 04/17/23 05:10 Laboratory: Laboratory Results - last 24 hr 04/17/23 05:10: WBC 7.0, RBC 3.78 L, Hgb 11.8 L, Hct 36.8 L, MCV 97.4, MCH 31.2, MCHC 32.1, RDW Std Deviation 44.5 H, RDW Coeff of Cirilo 12.4, Plt Count 301, MPV 9.3, Immature Gran % (Auto) 0.300, Neut % (Auto) 51.8, Lymph % (Auto) 26.4, [place] % (Auto) 8.3, Eos % (Auto) 12.2 H, Baso % (Auto) 1.0, Absolute Neuts (auto) 3.6, Absolute Lymphs (auto) 1.84, Nucleated RBC % 0, Creatinine 0.72, Estim Creat Clear Calc 80.76, Est GFR (MDRD) Af Amer 111, Est GFR (MDRD) Non-Af 92 Radiography Diagnostic Testing: Radiology Impression Venous Doppler Study 04/17/23 08:34 Interpretation Summary Acute deep vein thrombosis is noted in the left brachial vein Chronic superficial vein thrombosis is noted in the left basilic vein Ordering Physician: Sharif Pradhan Chi Referring Physician: Sandip Douglas Performed By: Bibiana Snowden, KRISTY, RVT ??? Venous Doppler Study 04/17/23 08:35 Interpretation Summary Deep veins of the left lower extremity are patent and compressible segmentally. There is no evidence of left lower extremity deep vein thrombosis. The left great saphenous vein appears patent and compressible segmentally. Ordering Physician: Sharif Pradhan Chi Referring Physician: Sandip Douglas Performed By: Bibiana Snowden, KRISTY, RVT Indicators for Scoring Admitted with or Primary Diagnosis of CVA/Stroke: Yes Hx of CVA/Stroke: Yes Modified [place] Score MRS Score at time of Evaluation: 4-Moderate/severe disability NIHSS NIHSS 1a. Level of Consciousness: Alert; keenly responsive 1b. LOC Questions: Answers BOTH questions correctly. 1c. LOC Commands: Performs both tasks correctly. 2. Best Gaze: Normal 3. Visual: No visual loss 4. Facial Palsy: Normal symmetrical movements 5a. Left Arm: Drift; arm drifts downward but doesn?t hit the bed 5b. Right Arm: No drift; arm holds 90 (or 45) degrees for full 10 seconds 6a. Left Leg: No drift; leg holds 30-degree position for full 5 seconds 6b. Right Leg: No drift; leg holds 30-degree position for full 5 seconds 7. Limb Ataxia: Absent 8. Sensory: Normal; no sensory loss 9. Best Language: No aphasia; normal 10. Dysarthria: Normal 11. Extinction and Inattention: No abnormality Total: 1 D/C Instructions Discharge Diet: No restrictions Discharge Activity: Return to Normal Activity, May Shower and Use Walker Weight Bearing Status: Weight bearing as tolerated Call your doctor if you observe: Fever of 101 or Higher, Inability to urinate, Inability to have a bowel movement, Shortness of breath, Dizziness, Fainting spells, Swelling in the ankles, Chest pain and Uncontrolled pain Additional Instructions: Discharge home with 04/18/2023, [facility] PT/OT/ST. Meaningful Use Info Meaningful Use Diagnoses (Choose all that apply): Hemorrhagic CVA CVA Therapy Assessed for PT,OT and/or ST?: Yes Discharge Plan Admission Admit Date/Time: 04/06/23 17:02 Primary Reason for Your Visit: Debility. Attending Provider: Nelida Chavez Primary Care Provider: Sandip Douglas Instructions Additional Instructions / Restrictions: Discharge home with 04/18/2023, [facility] PT/OT/ST. Discharge Orders/Prescriptions Prescriptions: New atorvastatin 40 mg Tablet 40 mg PO QHS 30 Days Qty: 30 0RF acetaminophen 325 mg Tablet 650 mg PO Q4H PRN (Reason: Pain Score 1-10) Qty: 0 0RF citalopram 40 mg Tablet 20 mg PO DAILY 30 Days Qty: 15 0RF thiamine HCl (vitamin B1) [Vitamin B-1] 100 mg Tablet 100 mg PO DAILY 30 Days Qty: 30 0RF olanzapine 2.5 mg Tablet 5 mg PO 2100 30 Days Qty: 60 0RF potassium chloride [Klor-Con M20] 20 mEq Tablet,Er Particles/Crystals 20 meq PO DAILY 30 Days Qty: 30 0RF trazodone 100 mg Tablet 100 mg PO 2100 30 Days Qty: 30 0RF folic acid 1 mg Tablet 1 mg PO DAILYCM 30 Days Qty: 30 0RF heparin (porcine) 5,000 unit/mL Solution 5,000 unit subcut Q12 30 Days Qty: 60 0RF atomoxetine [Strattera] 25 mg Capsule 25 mg PO 0700 30 Days Qty: 30 0RF metoprolol tartrate 25 mg Tablet 25 mg PO BID 30 Days Qty: 60 0RF Continued aspirin 81 mg tablet,chewable 1 tab PO DAILY Discontinued citalopram 40 mg tablet 40 mg PO DAILY acetaminophen 325 mg tablet 650 mg PO Q4H PRN (Reason: pain) atorvastatin [Lipitor] 80 mg tablet 80 mg PO QHS folic acid 1 mg tablet 1 mg PO DAILY heparin (bovine) 5,000 unit/mL solution 5,000 unit .Route Q12H melatonin 3 mg tablet 3 mg PO QHS metoprolol tartrate 25 mg tablet 25 mg PO BID polyethylene glycol 3350 [Miralax] 17 gram/dose powder 17 g PO DAILY potassium chloride 20 mEq tablet,ER particles/crystals 20 meq PO DAILY vancomycin 1.25 gram recon soln 1.25 g IV Q12H No Action thiamine HCl (vitamin B1) [Vitamin B-1] 100 mg tablet 100 mg PO DAILY Referrals / Follow Up: Radiology, CT [Other] - 04/26/23 9:00 am ([facility] ) Joaquim Gutiérrez [Other] - 04/26/23 10:00 am (Neurologist [facility] ) Sandip Douglas DO [Primary Care Provider] - 05/03/23 9:30 am Disposition Disposition (needs filled in before D/C Order can be placed): Home, Self Care
[2023-04-17] MEDS: traZODone 100 MG Tablet PO (20:13)
[2023-04-17] MEDS: Atorvastatin Calcium 40 MG Tablet PO (20:13)
[2023-04-17] MEDS: OLANZapine 2.5 MG Tablet 5 MG PO (20:13)
[2023-04-17] MEDS: MELATONIN 3 MG TABLET 9 MG PO (20:14)
[2023-04-18] MEDS: ATOMOXETINE HCL 25 MG CAPSULE PO (06:21)
[2023-04-18 07:00] VITALS: BP 108/60; PULSE 93; RESP 16; TEMP 36.3; O2SAT 99
[2023-04-18] MEDS: Potassium Chloride Oral Tablet 20 MEQ PO (08:32)
[2023-04-18] MEDS: Thiamine Hydrochloride 100 MG Tablet PO (08:32)
[2023-04-18 08:33] VITALS: PULSE 93
[2023-04-18] MEDS: Citalopram 40 MG TABLET 20 MG PO (08:33)
[2023-04-18] MEDS: Metoprolol Tartrate 25 MG Tablet PO (08:33)
[2023-04-18] MEDS: Folic Acid 1 MG Tablet PO (08:33)
[2023-04-18] MEDS: Aspirin 81 MG TAB.CHEW PO (08:33)
[2023-04-18] MEDS: Heparin Injection (Vial) 5,000 UNIT/ML VIAL 5000 UNIT SC (08:33)
[2023-04-18] MEDS: traMADol 50 MG Tablet PO (08:42)
[2023-04-18 11:19] VITALS: BP 108/60; PULSE 83; RESP 16; TEMP 36.3; O2SAT 99
--- NOTE | 2023-04-18 11:20 | NURSING ---
discharged home with . discharge instructions, medications and appointments reviewed with pt and spouse. denies questions or concerns
== END 2023-04-18 11:21 | disposition home or self-care (01) | DRG 56 ==
PROVIDERS: Hospitalist; Admitting Provider Internal Medicine; PCP Family Medicine; Visit Provider Internal Medicine
DX: I69.134 Monoplegia of upper limb following nontraumatic intracerebral hemorrhage affecting left non-dominant side (principal); G00.9 Bacterial meningitis, unspecified; I82.622 Acute embolism and thrombosis of deep veins of left upper extremity; I82.452 Acute embolism and thrombosis of left peroneal vein; F32.A Depression, unspecified; F41.9 Anxiety disorder, unspecified; I69.119 Unspecified symptoms and signs involving cognitive functions following nontraumatic intracerebral hemorrhage; I69.128 Other speech and language deficits following nontraumatic intracerebral hemorrhage; Z87.891 Personal history of nicotine dependence; F98.8 Other specified behavioral and emotional disorders with onset usually occurring in childhood and adolescence; G93.39 Other post infection and related fatigue syndromes; Z79.82 Long term (current) use of aspirin; Z79.899 Other long term (current) drug therapy
CPT/HCPCS: 36415; 80053; 80202; 82565; 83735; 84100; 85025; 92507; 92523; 93005; 93971; 94668; 97110; 97112; 97116; 97129; 97130; 97162; 97166; 97530; 97535; 97802; 99252; J2185; J7050; G0463

== ENCOUNTER → 2023-09-07 | Outpatient (CLI) | payer OTHER, SELFPAY ==
--- NOTE | 2023-09-07 13:14 | CT_ITS ---
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 TECHNIQUE: Multiple axial images were obtained of the head without and with intravenous contrast. This CT exam was performed using one or more of the following dose reduction techniques: automated exposure control, adjustment of the mA and/or kV according to patient size, and/or use of iterative reconstruction technique. CONTRAST: IV 50mL Isovue-300 RADIATION DOSE: CTDIvol = 47.06 mGy, DLP = 1745.36 mGy-cm COMPARISON: 03/05/2023. 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 No evidence of acute infarct. No intracranial mass or mass effect. There is preservation of the gilbert/white matter interface. Posterior fossa structures are unremarkable. Ventricles are appropriate for age. No hydrocephalus. Basal cisterns are patent. BONES/JOINTS: Unremarkable. No discrete lytic or blastic abnormalities. SINUSES: Unremarkable as visualized. Clear. MASTOID AIR CELLS: Unremarkable. Clear. ORBITS: Visualized globes, extraocular muscles, optic nerves and retrobulbar fat appear unremarkable. 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 No acute intracranial abnormality. Electronically Signed: Lobo Kat MD at 23:08 EST ,
== END | disposition home or self-care (01) ==
LOC: CT 13:13
PROVIDERS: PCP Family Medicine; Referring Provider Family Medicine; Visit Provider Family Medicine
DX: R51.9 Headache, unspecified (principal); R11.0 Nausea; Z86.73 Personal history of transient ischemic attack (TIA), and cerebral infarction without residual deficits
CPT/HCPCS: 70470; Q9967

== ENCOUNTER 2023-10-20 07:30 | Outpatient (RCR) | payer OTHER, SELFPAY ==
--- NOTE | 2023-04-24 13:56 | HP.PTEVAL_ITS ---
Patient's Visit Information Visit Information Visit Information: MADISON GREER is a 48 year old F referred to Physical Therapy by Dr. Sandip Douglas DO with a diagnosis of ICH, s/p craniotomy around 03/05. Date of Evaluation: 04/24/23 Physical Therapist: Wilbert Pizarro, QUIANAT, OCS, CSCS Visit Plan Frequency: 3x /Week Duration: 4-6 Weeks Plan: 3x/week for 4-6 weeks for 1. L LE [id number], L LE proprioception and balance 2. Funcitonal progression steps, gait and activities Progress to HEP as tolerated. Will likely have speech(cognition) and OT also Subjective Subjective: Dada present. talks mostly. March 05 found unresponsive on floor and had internal brain bleed. Life flighted to [place] and brain surgery hematoma/craniotomy. They are unsure of how bleed got there. Tube in brain for 2 weeks then had a spinal tap to drain. No shunt as she did well for 6 days. Catscan last Monday and it is showing healing of brain. Still no reason for this given to patient. Will have Catscan every 2 weeks and MRI monthly to figure it out. Has team of neurologists in [place]. [facility] 35 days, then to rehab for 11 days. L side was paralyzed at first and worked on that in hospital. L side weak and slow. Has cane and walker that she uses at home. Uses walker for distance and stability. At home can use can for short distances. balance does not feel steady at first stance. Stopping and starting can be an issue. Had one fall when she was turning too fast and lost balance, no injury. Basic ADLs bathroom and dressing self. Shower has tub and fearful of falling, has shower stool. Been home 5 days. Laying on couch alot. No exercises. Has done some laundry and put some dishes away, small tasks with limited standing. Helps with business heating at home when healthy. Hobbies: reading, has 11 yo. dtr. , crafting and painting. Puzzle books and is able to do those. Sleeping is normal and never been great. Pain LBP: Pain Intensity (Out of 10): 2 Pain Intensity Range: 0 and 4 Objective Objective: A& O x3 Walks with cane in R UE mod i back to PT, catches toes once but recovers I. Slow turns and head still. Trasnfers chair and bed without UE I. Steps require rail for safety and slightly weaker L leg descending but mod i with rail. Obviously weaker L UE and LE vs R. L UE at 4- v $ on R. L LE strength hip abd and ext 3+ L and 4- R, hip flexion 4- L and 4 R with opposite IR at hip. knee strength flexion 4- L and 4 R, curl 4- L and 4 R. Ankle 3+ L and 4 R. gastroc mildly tight L vs R but funcitonal in ROM, HS and quad flex are OK. reflexes 2/3 patella nd achilles sensation LE WNL to gross light touch. coordination to reciprocal toe and heel tap are good. heel to oliveira test are symmetrical. SLS L hard and falls L catching with R foot. R SLS is 10+ seconds easily. Balance/Special Test Scores Functional Gait Assessment Score: 25 % Disability: 16.6700 CATSIB Score (Max score 120 seconds): 104 Lower Extremity Functional Score: 27 Goals Goal 1:: FGA 30/30 to limit future risks Goal Time Frame: 4-6 Weeks Goal 2:: Strength is L symmetrical to that of R ankle and SLS 10 seconds L Goal Time Frame: 4-6 Weeks Goal 3:: pt able to ambulate community including steps without rail or AD Goal Time Frame: 4-6 Weeks Goal 4:: Pt feel 100% back to normal activity and physical funciton Goal Time Frame: 4-6 Weeks Goal 5:: Climb into tub for shower I Goal Time Frame: 4-6 Weeks Rehabilitation Potential Physical Therapy Diagnosis: L sided weakness, balance deficits from recent brain trauma limiting funciton and activity at home Rehabilitation Potential: Fair Anticipated Interventions Patient/Client Instruction: Educate patient on: Condition and Plan of Care For the Purpose of:: To decrease pain, To increase ROM, To improve nutrient delivery to tissue, To improve muscle performance and motor function, To increase tolerance to activity/condition/position and To improve gait and locomotor functions Therapeutic Exercise to Include: Strength training, Balance training, Coordination, Agility training and Gait and locomotor training For the Purpose of:: To improve nutrient delivery to tissue, To improve muscle performance and motor function, To increase tolerance to activity/condition/position, To improve ability of physical actions for home/community/work/leisure and To improve gait and locomotor functions Text: Thank you for the opportunity to evaluate your patient. For Medicare and Medicare HMO plans, please review the plan of care and approve it. It will need to be FAXED BACK to us at [phone] for Medicare purposes. For Medicare only, by signing this I certify the plan of care. Please let me know if there are questions or concerns regarding this plan of care. Physician Signature: Date:
--- NOTE | 2023-04-26 18:20 | HP.SP.EVAL ---
History History Date of Eval: 04/24/23 Attending Doctor: 2 Referring Doctor: Reason for Referral: ICH,S/P CRANIOTOMY/RX HERE Previous speech therapy: Yes Other Relevant Medical History/Diagnoses/Surgery: MADISON GREER is a 48 year old female who presents to [facility] Outpatient Speech Therapy following a ICH. D/c from hospital on 04/17/23. Lola arriving with , Dada, who helped serve as historian. 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 Prior to ICH she was in charge of planning and buying groceries for meals, as well as cooking them. Lola has a daughter, Gris, she is 11 - Lola typically assists with homework when needed, not math. Lola self-reports her concept of time in terms of memory has been challenging for her (e.g., telling her daughter to take a bath, and then 5 min. later tell her again, with her reporting she feels like an hour has gone by). Lola also reports family telling her that she is more impulsive. She does have baseline ADD which she take Straterra for. She graduated high school and did one year in college. Smoking Status: Never smoker Hx Smoking: Yes (1PPD x 20 yrs) Hx Tobacco Use: Yes Hx Smoking Exposure: Yes Pain Is pain an issue with your current prescribed condition?: No Personal Preferred language: Albanian Patient Allergies Allergies Allergies: Allergies quetiapine [From Seroquel] Adverse Reaction (Verified 04/11/23 08:42) Other QT PROLONGATION CORY CORY CORY Administered: Yes CORY: The Assessment of Language-Related Functional Activities (CORY) consists of ten subtests, each of which assesses a different functional activity that are critical for safe independent functioning in the home environment. Each subtest requires the use of all language modalities as well as cognitive and motor skills. Each subtest also allows observance of multiple cognitive processes, which can help eliminate administering specialized tests in certain areas. Independent Functioning Ratings are identified to determine safe independent functioning in the home environment for two distinct age groups: (1) individuals < 65 years of age, and (2) individuals ages 65 years of age and up. Independent Functioning Rating (IFR) are reported as followed; 1= high probability of independent functioning, 2= indication of need for some level of assistance on the task, requiring further exploration, 3= high probability that this individual is not able to function independently on this task. The results of the CORY are as followed: Date: 04/11/23 ADMINISTERED DURING HOSPITAL ADMISSION Counting Money Percent: 70 Solving Daily Math Problems Percent: 5 Writing a Check & Balancing a Checkbook Percent: 8 IFR: 1 Understanding Medicine Labels Percent: 9 IFR: 1 CLQT CLQT CLQT Administered: Yes CLQT: Cognitive Linguistic Quick Test (CLQT) is a criterion - referenced assessment designed for adults between the ages of 18 and 89 with known or suspected neurological dysfuntions. The CLQT is to assess strength and weaknesses in five cognitive domains. Severity ratings are within normal limits, mild, moderate, severe deficits. The subtests are as follows: Date: 04/11/23 ADMINSTERED DURING HOSPITAL ADMISSION Attention Attention: Mild Memory Memory: WNL Executive Functions Executive Functions: WNL Language Language: WNL Visuospatial Skills Visuospatial Skills: Mild Composite Severity Rating Composite Severity Rating: WNL Clock Drawing Severity Rating Clock Drawing Severity Rating: Mild CLQT Comments COGNITIVE DOMAIN SCORES FROM ADMINISTRATION OF ASSESSMENT ON 04/11 DURING HOSPITAL ADMISSION: -: Domain Scores: Attention = 131/215 (MILD); Memory = 164/185 (WNL); Executive Functioning = 24/40 (WNL -- However the range for WNL is 40-24 with Pt scoring right at the cut off between Mild and WNL); Language = 31/37 (WNL); Visuospatial Skills = 70/105 (MILD); Clock Drawing = 11/13 (WNL). Reference: Neuro-QoL instrument Radiation Oncology Patient Other Other MOCA ADMINISTRATION FROM 04/07/2023 DURING HOSPITAL ADMINISTRATION: -: Pt was administered the MOCA as a cognitive screener revealing a score of 15/30 which suggests cognitive impairment with WNL being greater than 26. BCAT ADMINSTRATION FROM 04/10/2023 DURING HOSPITAL ADMISSION: -: Pt scored 39 which suggests mild cognitive impairment. Comments Current Outpatient Evaluation: -: During outpatient evaluation on 04/24/23, it was not clinically indicated to perform yet another standardized assessment on patient as she has recently received a battery of assessments during her hospital admission on inpatient rehab. Outpatient evaluation focused on understanding how Pt functions at home and what her day to day tasks look like. 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[employer]) - Get daughter off of bus - Take daughter to gymnastics - Make dinner - Pick daughter up from gymnastics - Eat dinner - Take dogs out - Help daughter with HW - Go to bed 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: - writes notes on her iPad about who, what, where, when, why (suspects this may be difficult for her to multi-task with when on the phone) - uses [employer] for scheduling - writes information about the job on a blank piece of paper prior to transferring to work order to avoid mistakes - 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 reporting that she will often get moving too fast and start typing either unrelated words or nonsense words with no awareness. Plan Plan Plan: Will recommend Pt for weekly outpatient speech therapy to address moderate cognitive impairment characterized by deficits in immediate and short-term memory, word retrieval, executive functioning, attention, problem solving/reasoning, and safety awareness. Pt would benefit from training in compensatory strategies for recall and word retrieval, as well as cognitive training to improve cognitive functioning and development of compensatory strategies. Without skilled ST services, the Pt is at risk for decreased independence completing daily living tasks. Recommendations Treatment Warranted: Yes Treatment Warranted: Cognition Progress Prognosis: Good Frequency Frequency: 1x/Week Visits in this POC: 20 Goals that are Established Determination:: Goals will be added/modified as deemed necessary and appropriate. Therapy will be discontinued when results of re-evaluation indicate therapy is no longer needed or lack of progress has been documented. Goal #1-5 Goal #1: Lola will complete complex problem solving, reasoning, and executive function tasks including but not limited to functional ADL (i.e. managing finances, safety awareness, paying bills, medication management, meal planning, using cellphone) with 80% acc during given min verbal and logical 2/3 sessions. 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 with 80% acc given min verbal and logical cues. Goal #3: Lola will complete basic to mod complex sustained, alternating, divided attention tasks with 80% acc independently across 3 measured opportunities. Education Patient has Indicated that the Following Identified Educational Needs: None The Patient has indicated that they have no educational or learning abilities that may effect their care.: Yes Patient Instruction Patient Education: Diagnosis, Treatment Plan and Goals Person Taught: Patient and Family Teaching Method: Discussion and Demonstration Response to teaching: Return demonstration and Verbalize understanding
--- NOTE | 2023-05-01 15:02 | HP.OTEVAL ---
Patient's Visit Information Visit Information Visit Information: MADISON GREER is a 48 year old F, referred to Occupational Therapy by Dr. Sandip Douglas DO, with a diagnosis of ICH, left neglect. Date of Evaluation: 05/01/23 Occupational Therapist: Rosalie Mata, JAVIER/Lorelei, CHT Subjective Subjective: This 48 year old female was seen for OT eval with dx of ICH, ADD left neglect and s/p craniotomy- Mar 05 found unresponsive on floor- life flight to [facility] - Dada present. had internal brain bleed brain surgery hematoma/craniotomy. They are unsure of how bleed got there. Tube in brain for 2 weeks then had a spinal tap to drain. No shunt as she did well for 6 days. Catscan last Monday and it is showing healing of brain. Still no reason for this given to patient. Will have Catscan every 2 weeks and MRI monthly to figure it out. Has team of neurologists in [place]. [facility] 35 days, then to rehab for 11 days. L side was paralyzed at first and worked on that in hospital. L side weak and slow. Has cane and walker that she uses at home. Uses walker for distance and stability. At home can use can for short distances. balance does not feel steady at first stance. Stopping and starting can be an issue. Had one fall when she turned to fast- no injury Been home 5 days. Hobbies: reading, has 11 yo. dtr. , crafting and painting. Puzzle books and is able to do those. Sleeping is normal and never been great. 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 ADLs Dressing: Pants and Shoes Comments: slower with tasks Fasteners: Tie shoes and Zippers Comments: slower to perform Eating: Cut food Bathing: Squeeze shampoo bottle Comments: has to use right - using shower chair as needed Household: Vacuum and Sweep/mop Comments: family is performing Comments: pt states with walking she struggles with connection to brain and leg is off carry plate - food fell on the floor pts family is assisting with daily tasks due to pts balance - delay response and left neglect Pain head pain: Current Pain Intensity: 2 Pain Intensity Range: 2 ROM Shoulder: right 165 left 150* Elbow: right WNL left WNL (slow motion) Forearm: right/left WNL Strength Shoulder: right 5/5 left 3/5 Elbow: right 5/5 left 3/5 Director [employer]: right 55 left 60 Lateral Pinch: right 14# left 10# Tripod Pinch: right 14# left 10# Tip-to-Tip Pinch: right 10# left 6# Strength Comments: pt demo decrease in distal finger strength Sensation Sensation Comments: denies Visual/Perceptual Skills Left Neglect: Yes Comments: proprioception of left UE carry/hold of objects Nine Hole Peg Right: 16.63 Left: 22.52 Quick DASH-Disab of Arm,Shoulder& Hand Quick DASH Score: 41.6650 Goals Goal:: pt will demo a increase in left shoulder strength demo the ability to place 2-3# items at different levels to increase pts ind. with daily tasks by d/c. Goal:: pt will demo the ability to perform left UE ROM equal to right in with no demo delay in motion by d/c Goal:: pt will demo a increase in bilateral hand skills by tying shoes and zipping coat in timely manor ( less than 30 sec) by d/c. Goal:: pt will demo compensatory german. for left neglect to increase visual scan skills by d/c Goal:: pt will demo the ability to identify if she is dropping items or how wrist/hand is positioned to correct carrying object prior to dropping it by d.c Rehabilitation General Assessment: pt arrives 2 weeks s/p craniotomy - demo a decrease in functional balance, left UE use and limited FMS as well as left neglect- pt in need of assistance with ADLs and IADLs at this time. Pt would benefit from skilled OT services 2-3x week for 4 weeks to return pt to her PLOF. pt and pts spouse demo understanding and agree to POC. Rehabilitation Potential: Good Anticipated Interventions Anticipated Interventions: A/AAROM/PROM, Strengthening, Ergonomic Education, Fine Motor Coord/Perfecto, ADL Training, Education re assistive Equipment, Caregiver Training and Home Program Visit Plan Frequency: 2-3x /Week Duration: 4 Weeks TEXT: Thank you for the opportunity to evaluate your patient. For Medicare and Medicare HMO plans, please review the plan of care and approve it. It will need to be FAXED BACK to us at [phone] for Medicare purposes. Please let me know if there are questions or concerns regarding this plan of care. Physician Signature: Date:
--- NOTE | 2023-07-18 14:41 | HP.PTREVAL_ITS ---
Re-Evaluation Intro: Dr. Sharif Pradhan MD, It has been my pleasure to treat MADISON GREER over the last 16 visits for ICH, s/p craniotomy around 03/05. Please see the progress note below for an update on the physical therapy plan of care! Subjective Subjective: Better than initial. Much better strength, carrying laundry basket, showering by herself. Still hard time lifting L leg to put in pants. Balance can be iffy sometimes when she is tired. No falls. No AD needed. Exercises at home include balance and bands around legs daily 3x10. Not driving. 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 Walking dog OK. Hobbies: puzzle books. Helps at work with books when needed. I have 8# db and want get on home Not sure why she missed PT for a month. Objective Objective/Function: Walking well without difficulties, tolerates and improved on FGa and Romberg adn funcitonal with basic balance. Has some self described anxiety in very public situations and when she gets tired.Frustrated that she cannot drive. Wants to be stronger to get worn out less. Plan Plan Plan: 2x/week for 4 weeks to teach more aggressive strengthening adn funcional balance program pt can eventually do at home with db, weights, TB. (rows, squats, lunges, inchworms, more agressive leg, core and postural strength with pics and balance to HEP) New goals and current unmet goals appropriate, good prognosis Balance/Gait/Functional tests Balance/Special Test Scores Functional Gait Assessment Score: 29 % Disability: 3.3400 CATSIB Score (Max score 120 seconds): 120 Lower Extremity Functional Score: 57 Goals Goals Goal 1:: FGA 30/30 to limit future risks Goal Time Frame: 4-6 Weeks Goal Progress: 29, appropriate Goal 2:: Strength is L symmetrical to that of R ankle and SLS 10 seconds L Goal Time Frame: 4-6 Weeks Goal Progress: Goal Met Goal 3:: pt able to ambulate community including steps without rail or AD Goal Time Frame: 4-6 Weeks Goal Progress: Goal Met Goal 4:: Pt feel 100% back to normal activity and physical funciton Goal Time Frame: 4-6 Weeks Goal Progress: Progressing, 80, approp Goal 5:: Climb into tub for shower I Goal Time Frame: 4-6 Weeks Goal Progress: Goal Met Goal 6:: I appropriate HEP to continue to strengthen/finctional balance to reduce fatigue Goal Time Frame: 2-4 Weeks Goal Progress: NEW GOAL Anticipated Interventions Anticipated Interventions Patient/Client Instruction: Educate patient on: Condition and Plan of Care For the Purpose of:: To decrease pain, To increase ROM, To improve nutrient delivery to tissue, To improve muscle performance and motor function, To increase tolerance to activity/condition/position and To improve gait and locomotor functions Therapeutic Exercise to Include: Strength training, Balance training, Coordination, Agility training and Gait and locomotor training For the Purpose of:: To improve nutrient delivery to tissue, To improve muscle performance and motor function, To increase tolerance to activity/conditio n/position, To improve ability of physical actions for home/community/work/leisure and To improve gait and locomotor functions Re-Evaluation Ending Re-evaluation ending: Please do not hesitate to contact me at [phone] by phone or if you have questions or concerns regarding this new plan of care! Sincerely, Wilbert Pizarro, DPT, OCS, CSCS
--- NOTE | 2023-08-31 11:28 | HP.PTREVAL ---
Re-Evaluation Intro: Dr. Sharif Pradhan MD, It has been my pleasure to treat MADISON GREER over the last 24 visits for ICH, s/p craniotomy around 03/05. Please see the progress note below for an update on the physical therapy plan of care! Subjective Subjective: Doing good. Still needs speech for directions and details. Mobility. Activities. Better at laundry. much less dizzyness intensity and duration. Fast turning of head makes her a little dizzy. Strength feel good. Dooing HEP of bed adn step up exercises. Objective Objective/Function: strength symmetrical in ankles Walking well but uinabkle to tandem walk easily. Dizzy with head down position and somewhat with head turns. progressing toward or met goals. appropraite to wrok on dizzyness and final HEP. New goals and good prognosis. Plan Plan Plan: 2x/week for 3-4 weeks for 1/ progression of habituation(head turns will be needed) via HEP. 2. Teach final HEP aggressive for strength LE, corre and posture and balance with list and pics for HEP(current program is a good start but she has not been doing it.)Emphasize compliance. Balance/Gait/Functional tests Balance/Special Test Scores Functional Gait Assessment Score: 29 % Disability: 3.3400 CATSIB Score (Max score 120 seconds): 120 Lower Extremity Functional Score: 65 Goals Goals Goal 1:: FGA 30/30 to limit future risks Goal Time Frame: 4-6 Weeks Goal Progress: 29, appropriate Goal 2:: Strength is L symmetrical to that of R ankle and SLS 10 seconds L Goal Time Frame: 4-6 Weeks Goal Progress: Goal Met Goal 3:: I appropriate aggressive LE postural and core strength for HEP Goal Time Frame: 2-4 Weeks Goal Progress: NEW GOAL Goal 4:: Pt feel 100% back to normal activity and physical funciton Goal Time Frame: 4-6 Weeks Goal Progress: 100% Goal 5:: abolish dizzyness with laundry, head turns Goal Time Frame: 2-4 Weeks Goal Progress: NEW GOAL Goal 6:: I appropriate HEP to continue to strengthen/finctional balance to reduce fatigue Goal Time Frame: 2-4 Weeks Goal Progress: Progressing Anticipated Interventions Anticipated Interventions Patient/Client Instruction: Educate patient on: Condition and Plan of Care For the Purpose of:: To decrease pain, To increase ROM, To improve nutrient delivery to tissue, To improve muscle performance and motor function, To increase tolerance to activity/condition/position and To improve gait and locomotor functions Therapeutic Exercise to Include: Strength training, Balance training, Coordination, Agility training and Gait and locomotor training For the Purpose of:: To improve nutrient delivery to tissue, To improve muscle performance and motor function, To increase tolerance to activity/condition/position, To improve ability of physical actions for home/community/work/leisure and To improve gait and locomotor functions Re-Evaluation Ending Re-evaluation ending: Please do not hesitate to contact me at [phone] by phone or if you have questions or concerns regarding this new plan of care! Sincerely, Wilbert Pizarro, DPT, OCS, CSCS
--- NOTE | 2023-10-04 10:44 | HP.PTDCSUM ---
Discharge Summary D/C summary: It has been my pleasure to treat MADISON GREER referred by Dr. Sharif Pradhan MD, with the diagnosis of ICH, s/p craniotomy around 03/05 for a total of 31 visit(s). Discharge Date: 10/04/23 Please see the following information for a summary of their discharge status. Subjective Subjective: Doing good. I feel more stable. Slight unsteady feeling reorganizing pantry. Some dizzy transiently. Otherwise better. Life is normal physically. Sleeping good. HEP: on off therapy days. 75% better overall, Pain LBP: Pain Intensity (Out of 10): 5 legs: Pain Intensity (Out of 10): 0 neck: Pain Intensity (Out of 10): 0 Overall Improvement % Improvement: 75 Objective Objective/Function: FGA is 30 and +1 from last test today. Walking well. Transfers and gait I, steps without rail I. Goals Goal 1:: FGA 30/30 to limit future risks Goal Progress: Goal Met Goal 2:: Strength is L symmetrical to that of R ankle and SLS 10 seconds L Goal Progress: Goal Met Goal 3:: I appropriate aggressive LE postural and core strength for HEP Goal Progress: Goal Met Goal 4:: Pt feel 100% back to normal activity and physical funciton Goal Progress: 100% activity Goal 5:: abolish dizzyness with laundry, head turns Goal Progress: Progressing Goal 6:: I appropriate HEP to continue to strengthen/finctional balance to reduce fatigue Goal Progress: Goal Met Plan Plan: d/c to HEP D/C Information d/c sentence: If there are questions or concerns regarding this patient's physical therapy, please feel free to call me at [phone]. Thank you for the referral of this patient. Sincerely, Wilbert Pizarro, DPT, OCS, CSCS Balance/Gait/Functional tests Balance/Special Test Scores Functional Gait Assessment Score: 30 % Disability: 0 CATSIB Score (Max score 120 seconds): 120 Lower Extremity Functional Score: 46 Improvement % Improvement: 75
== END 2023-10-20 19:00 | disposition home or self-care (01) ==
LOC: SP 07:30
PROVIDERS: PCP Family Medicine; Referring Provider Family Medicine Geriatric Medicine; Visit Provider Family Medicine Geriatric Medicine
DX: I62.9 Nontraumatic intracranial hemorrhage, unspecified (principal); Z98.890 Other specified postprocedural states
CPT/HCPCS: 92523; 97110; 97116; 97129; 97130; 97162; 97164; 97166; 97530

== ENCOUNTER → 2023-11-14 | Outpatient (CLI) | payer OTHER, SELFPAY ==
--- NOTE | 2023-11-14 06:28 | ECHOD_ITS ---
Version 2 Reason For Study: Abnormal EKG Procedure This was a 2D Doppler, Color Flow transthoracic echocardiogram. Exam performed in department. Left Ventricle Normal LV size. Left ventricular systolic function is normal. The estimated ejection fraction is 60 %. No regional wall motion abnormalities noted. Right Ventricle Normal RV size. Normal systolic function. Atria Normal left atrium. Normal right atrium. Mitral Valve Normal mitral valve. Tricuspid Valve Normal tricuspid valve. Mild (1+) tricuspid valve insufficiency. Pulmonary artery systolic pressure is 28 mmHg. Aortic Valve Trisinus/trileaflet aortic valve. Pulmonic Valve Normal pulmonic valve. Great Vessels Normal aortic root. The pulmonary artery is normal size. Normal inferior vena cava. Pericardium/Pleural No pericardial effusion. MMode/2D Measurements & Calculations LVIDd: 3.9 cm IVSd: 0.84 cm Ao root diam: 3.3 cm LVIDs: 2.6 cm LVPWd: 0.97 cm LA dimension: 3.0 cm RVDd: 3.8 cm FS: 32.1 % LAV(MOD-bp): 50.9 ml LVAd ap4: 22.6 cm2 SV(MOD-sp4): 36.3 ml LAV(MOD-bp) Indexed: 27.8 ml/m2 LVLd ap4: 7.3 cm LAV(MOD-sp2): 57.1 ml EDV(MOD-sp4): 57.5 ml LAV(MOD-sp4): 42.0 ml EDV(sp4-el): 59.7 ml LVAs ap4: 11.9 cm2 LVLs ap4: 5.8 cm ESV(MOD-sp4): 21.2 ml ESV(sp4-el): 20.7 ml EF(MOD-sp4): 63.2 % EF(sp4-el): 65.3 % SV(sp4-el): 39.0 ml LA A4 area: 16.3 cm2 RA A4 area: 15.8 cm2 TAPSE: 2.1 cm Time Measurements MV dec time: 0.16 sec Doppler Measurements & Calculations MV E max joesph: 73.1 cm/sec Lat Peak E' Joesph: 12.9 cm/sec Med Peak E' Joesph: 11.0 cm/sec MV A max joesph: 61.8 cm/sec E/E' lat: 5.7 E/E' med: 6.7 MV E/A: 1.2 MV V2 max: 92.6 cm/sec MV P1/2t max joesph: 93.4 cm/sec Ao V2 max: 136.1 cm/sec MV max P.4 mmHg MV P1/2t: 60.7 msec Ao max P.4 mmHg MV V2 mean: 49.0 cm/sec MV dec slope: 450.5 cm/sec2 Ao V2 mean: 92.6 cm/sec MV mean P.2 mmHg Ao mean P.9 mmHg MV V2 VTI: 24.9 cm MVA(P1/2t): 3.6 cm2 Ao V2 VTI: 29.6 cm AV (velocity ratio): 0.89 LV V1 max: 105.6 cm/sec PA V2 max: 83.0 cm/sec TR max joesph: 249.1 cm/sec LV V1 max P.5 mmHg TR max P.8 mmHg LV V1 mean P.6 mmHg LV V1 mean: 75.8 cm/sec LV V1 VTI: 26.4 cm ECHO/Echo Complete Interpretation Summary Normal LV size. Left ventricular systolic function is normal. The estimated ejection fraction is 60 %. Pulmonary artery systolic pressure is 28 mmHg. Structurally normal valves. Ordering Physician: Ty Landaverde Referring Physician: Sandip Douglas Performed By: Ferny Cheng RCS
--- NOTE | 2023-11-14 18:25 | STRESSREP ---
Stress Test Report Pharmacologic myocardial perfusion stress test. 48-year-old lady with a history of abnormal EKG Resting EKG demonstrates sinus rhythm with a rate of 75 bpm. Resting blood pressure is 106/64 mmHg. 0.4 mg of regadenoson was infused per usual protocol followed by rapid intravenous saline flush injection. Continuous EKG monitoring was performed. The maximum heart rate was 121 bpm which was 69% of max impacted heart rate the maximum workload was 1 metabolic equivalent. At rest there were no ST or T wave changes noted to suggest ischemia and at peak infusion nonspecific ST changes were noted which did not meet the criteria for ischemia. No clinical angina is noted. The final blood pressure was 118/82 mmHg. Myocardial perfusion protocol. 11.9 mCi of technetium 99m sestamibi was injected at rest. 0.4 mg of regadenoson was infused per usual protocol. At peak infusion 34 point mCi of technetium 99m sestamibi was injected stress images were obtained stress and rest images were reconstructed and compared in the short axis vertical long and horizontal long axis. Gated images were also obtained. Perfusion SPECT analysis: Review of the stress images demonstrate normal uptake of tracer noted in all areas of the myocardium. The resting images similar demonstrated normal uptake of tracer noted in all areas of the myocardium. No areas of reversibility are noted to suggest ischemia and no previous infarct is noted. Gated SPECT analysis: The gated ejection fraction is 67%. Conclusion: Normal pharmacologic myocardial perfusion stress test. Preserved ejection fraction.
== END | disposition home or self-care (01) ==
PROVIDERS: PCP Family Medicine; Referring Provider Internal Medicine Cardiovascular Disease; Visit Provider Internal Medicine Cardiovascular Disease
DX: I34.0 Nonrheumatic mitral (valve) insufficiency (principal); R01.1 Cardiac murmur, unspecified; R93.1 Abnormal findings on diagnostic imaging of heart and coronary circulation
CPT/HCPCS: 78452; 93017; 93306; A9500; A4216; J2785

== ENCOUNTER 2023-12-26 16:30 | Outpatient (RCR) | payer OTHER, SELFPAY ==
--- NOTE | 2024-03-20 12:35 | HP.SP.DC ---
ST Discharge Summary Discharged: Discharge: MADISON GREER is a 48 year old female who was seen for initial cognitive evaluation at [facility] on 04/09/2023 s/p ICH with craniotomy. 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 Pt showing excellent and consistent carryover at home with what was discussed in therapy. On Pt's last session on 12/26/23, discussed leaving Pt's chart open through January and if she did not call to schedule appts, then she would be d/c d/t meeting all therapy goals and doing well with problem solving any new difficulties at home. Pt discharged from speech therapy caseload on this date, 03/20/24 d/t no additional appts being scheduled. Thank you for allowing me to participate the care of your Pt. Will reevaluate at Pt?s request following script from physician.
== END 2023-12-26 19:00 | disposition home or self-care (01) ==
LOC: SP 16:30
PROVIDERS: PCP Family Medicine; Referring Provider Family Medicine Geriatric Medicine; Visit Provider Family Medicine Geriatric Medicine
DX: I62.9 Nontraumatic intracranial hemorrhage, unspecified (principal); F98.8 Other specified behavioral and emotional disorders with onset usually occurring in childhood and adolescence; R41.4 Neurologic neglect syndrome; Z98.890 Other specified postprocedural states
CPT/HCPCS: 97129; 97130

== ENCOUNTER → 2024-09-04 | Outpatient (CLI) | payer OTHER, SELFPAY ==
--- NOTE | 2024-09-04 14:30 | CT_ITS ---
PROCEDURE: CTA HEAD W/WO CONTRAST REASON FOR EXAM: History of prior cerebral hemorrhage. TECHNIQUE: CTA imaging of the head and neck from the aortic arch to the skull vertex with intravenous contrast. 3D reconstructions. CONTRAST: 100 mL of Isovue 370. COMPARISON: Comparison is made with prior CT scan of the head dated 05 March 2023. # of known CTs in the past 12 months: 0 # of known Cardiac Nuclear Medicine Studies in the past 12 months: 0 FINDINGS: Encephalomalacia in the right frontal lobe in keeping with history of prior cerebral hemorrhage. Aortic Arch: Normal size and branching pattern. No significant atherosclerotic plaque. Brachiocephalic and Subclavians: Unremarkable No intracranial aneurysms or large vascular malformations are identified. Anterior cerebral arteries: Unremarkable. Middle cerebral arteries: Unremarkable. Basilar artery: Unremarkable. Posterior cerebral arteries: Unremarkable. Other major branches of the posterior circulation: Unremarkable. Major venous structures: Unremarkable. Other findings: No lymphadenopathy. Lung apices are clear. Bones are unremarkable. CT/CTA Head W/WO Contrast IMPRESSION: No acute abnormality is seen. One or more dose reduction techniques were used (e.g., Automated exposure contr ol, adjustment of the mA and/or kV according to patient size, use of iterative reconstruction technique). Reading Location: [place]
== END | disposition home or self-care (01) ==
LOC: CT 14:22
PROVIDERS: PCP Family Medicine; Referring Provider Family Medicine; Visit Provider Family Medicine
DX: R51.9 Headache, unspecified (principal); R11.2 Nausea with vomiting, unspecified; Z98.890 Other specified postprocedural states; Z86.73 Personal history of transient ischemic attack (TIA), and cerebral infarction without residual deficits
CPT/HCPCS: 70496; Q9967; A4216

== ENCOUNTER 2024-11-28 20:47 | Emergency (ER) | payer OTHER, SELFPAY ==
[2024-11-28] VITALS (7 sets, daily range): BP systolic 130–152; BP diastolic 80–89; PULSE 74–136; RESP 16–22; TEMP 36.3–37.3; O2SAT 94–100; BMI 28.1
--- NOTE | 2024-11-28 20:48 | ED.RN ---
PATIENT CAME IN PER EMS POST ICTAL, SOON THE PATIENT WAS TRANSFERRED TO [facility] BED THE PATIENT STARTED TO HAVE A SEIZURE. PATIENT'S EYES FIXED TO THE RIGHT AND LIMBS CONTRACTED. ORAL SUCTION PROVIDED, NON-REBREATHER PLACED TO MAINTAIN OXYGENATION. SEIZURE PRECAUTIONS INITIATED. DR. GUAJARDO AT BEDSIDE.
--- NOTE | 2024-11-28 20:51 | EKG12_ITS ---
Test Reason : DYSRHYTHMIA Blood Pressure : */* mmHG Vent. Rate : 77 BPM Atrial Rate : 77 BPM P-R Int : 114 ms QRS Dur : 84 ms QT Int : 406 ms P-R-T Axes : 70 57 30 degrees QTcB Int : 459 ms Normal sinus rhythm with sinus arrhythmia Right atrial enlargement Nonspecific ST abnormality Abnormal ECG When compared with ECG of 07-Apr-2023 05:42, MANUAL COMPARISON REQUIRED DATA IS UNCONFIRMED Confirmed by Lobo Laureano ([id number]), news editor ELIDA BRANCH ([id number]) on 12/09/2024 1:28:24 PM Referred By: Edward Liu Confirmed By: Lobo Laureano
--- NOTE | 2024-11-28 21:00 | EDS_ITS ---
HPI History of Present Illness Chief Complaint: Seizure Detail of Chief Complaint: Seizure Informant: spouse/S.O. and EMS Onset/Context/Timing Onset: Today Context: Sudden Onset Timing: Intermittent Quality: To generalized tonic-clonic seizures Location: 1 at residence and 1 in the emergency department Current Severity: Generalized tonic-clonic seizure Maximum Severity: Generalized tonic-clonic seizure Worsened by: Unknown Relieved by: Not applicable Associated Symptoms Associated Symptoms: Unable to determine Narrative Narrative: Patient is a 49-year-old woman. She was seen by me February 2023 for a large intraparenchymal bleed with [id number] midline shift and extension into the ventricles. Initial call went out for seizure. History was vague. Upon questioning the paramedics heard a thump. When he entered the room his was seizing. When patient arrived in emergency department her eyes were deviated to the right. She had a generalized tonic-clonic seizure prior to awakening. By definition she has status epilepticus. No other history is available. According to paramedics she has no history of seizure and is on no anticonvulsant. Prior similar symptoms: Yes (February 08 when patient had a large intraparenchymal bleed with e) Recent Illness/Hospitalization: No PFSH [facility] Medical History History of DVT (deep vein thrombosis) Fibroadenoma of left breast Migraines ADD (attention deficit disorder) Seasonal allergies Marijuana use ICH (intracerebral hemorrhage) Acute bacterial meningitis Internal derangement of right knee MCL sprain of right knee Strain of right knee Fatigue Endometriosis Home Medications ?Medication ?Instructions ?Recorded ?Last Taken ?Type acetaminophen 325 mg tablet 650 mg (2 x 325 mg) PO Q4H PRN 04/17/23 Unknown Rx Pain Score 1-10 #0 tabs cetirizine 10 mg tablet 10 mg PO DAILY PRN 09/25/23 Unknown History escitalopram oxalate 5 mg tablet 5 mg PO DAILY 5 Unknown History gabapentin 300 mg capsule 300 mg PO QHS 11/28/24 Unkno wn History ondansetron HCl 4 mg tablet 4 mg PO Q4H PRN PRN nausea 11/28/24 Unknown History Allergy/AdvReac Type Severity Reaction Status Date / Time cat dander Allergy Unknown Unknown Verified 11/28/24 20:47 hydrocodone Allergy Unknown Itching Verified 11/28/24 20:47 quetiapine (From Seroquel) AdvReac Other Verified 11/28/24 20:47 Family History Grandmother Cerebral aneurysm Maternal GM Other Diabetes Surgical History History of foot surgery Status post craniotomy H/O bilateral salpingectomy (~12/24/19) History of LAVH (~12/24/19) S/P Social History adopted: Yes household members: family and other details: dtr Gris and Dada housing: house number of children: 1 current occupational status: employed 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 Smoking Status: Current every day smoker tobacco type: cigarettes Tobacco: How many years used: 30 how long ago did patient quit smokin month ago quit status: quit date established alcohol intake: never substance use type: marijuana caffeine: Yes what type of physical activity do you participate in: aerobics frequency: 3-4 times per week seatbelt use: always do you feel safe at home: Yes additional social history: - [employer] 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 ROS ROS ED Review of Systems ROS Unobtainable: due to mental status EXAM Physical Exam Const Vital Signs: 11/28/24 20:48 11/28/24 21:35 Temperature 97.3 F L 98.8 F Temperature Source Axillary Core Pulse Rate 136 H 101 H Respiratory Rate 20 H 18 Blood Pressure 131/80 H 130/85 H Blood Pressure Mean 97 100 Pulse Ox 100 95 Oxygen Delivery Method Non-Rebreather Room Air Oxygen Flow Rate (L/min) 15 Positive well nourished and well developed Constitutional Narrative: Patient is lying on the cot with eyes open no verbal no localization of pain with eyes deviated to the right. There is no nystagmus. General Appearance ED: well developed HEENT HEENT Narrative: Nares patent. Posterior pharynx unremarkable. Ears are normal. Negative for trauma Eyes Eyes Narrative: Eyes are deviated to the right. They are reactive to light. There is no nystagmus. There is no subconjunctival hemorrhage. There is no obvious facial trauma. 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 Cardio regular rhythm, S1 normal heart sound, S2 normal heart sound and no murmurs Rate: tachycardic GI non-distended and no masses; Negative for hepatosplenomegaly Auscultation: hypoactive bowel sounds Palpation: soft Extremity normal to inspection Neuro No oriented x3 and CN's II-XII intact bilaterally Neuro Narrative: Patient does not have clonus at the ankles. She has bilateral Minsky sign. Initial GCS was 6. According to she has weakness on the left side due to the prior right intraparenchymal bleed. Sensorium / Orientation: Negative for alert Psych Negative for mental status grossly normal Psych Narrative: Unable to to determine Skin no rashes or lesions noted, no wounds and skin turgor normal MDM MDM MDM Narrative Medical decision making narrative: Patient with status epilepticus. In light of patient's neurologic exam need to rule out intracranial bleed i.e. subdural, epidural, intraparenchymal or subarachnoid hemorrhage. Lab Data Attestation: I reviewed the patient's lab results. Lab results narrative: White count is elevated 20.4 thousand with slight shift. H&H 15 7 and 45.9. Platelet count is 391,000. Labs: Laboratory Results - last 24 hr 11/28/24 20:35 WBC 20.4 H RBC 4.90 Hgb 15.7 H Hct 45.9 MCV 93.7 MCH 32.0 MCHC 34.2 RDW Std Deviation 42.2 RDW Coeff of Cirilo 12.1 Plt Count 391 MPV 9.8 Immature Gran % (Auto) 0.500 Neut % (Auto) 86.5 H Lymph % (Auto) 8.8 L [place] % (Auto) 4.0 Eos % (Auto) 0.0 Baso % (Auto) 0.2 Absolute Neuts (auto) 17.7 H Absolute Lymphs (auto) 1.79 Nucleated RBC % 0 PT 14.3 INR 1.1 APTT 25.2 Sodium 141 Potassium 3.3 Chloride 99 Carbon Dioxide 10.5 L Anion Gap 31 H BUN 13 Creatinine 0.95 Estim Creat Clear Calc 68.95 Est GFR (MDRD) Non-Af 74 BUN/Creatinine Ratio 13.6 Glucose 228 H Calcium 9.6 Radiography Diagnostic Testing: CT of the head reveals a subarachnoid hemorrhage. There is evidence of the prior intraparenchymal bleed. There is no evidence of subdural epidural hematoma. Reviewed CT of the neck. There is no obvious abnormality per my review. CTA of the head neck was subsequently ordered. Awaiting images for review. Spoke to the transfer line at [facility]. Patient's auto launch for atraumatic subarachnoid hemorrhage. EKG Initial EKG: Attestation: I personally reviewed and interpreted this EKG as follows: Interpretation: Sinus Rhythm (Rate is 77. [place] interval 214 ms Rickers duration 84 ms. QT duration 46 ms. [place] is normal. There is nonspecific changes noted.) Treatment and Re-Evaluation :: Plan was to load with 40 mg/kg of valproic acid. The neurointensivist at [facility] requested Keppra because of concern for platelet dysfunction with valproic acid. He requested 4.5 g. Disc was confirmed. Spoke with pharmacist to cancel order of valproic acid and to please order 4.5 g of Keppra. Spoke with transfer line personnel as well as critical care transport for auto launch. Patient does qualify for auto launch. Comments:: On reevaluation at 2128. Patient's GCS is 13. Critical Care Time Critical Care Time: Yes Critical care time (excluding procedures): 30-74 minutes (32), Including time spent: (History physical, documentation, review of prior records and laboratory results and independent rotation of CT to auto launch patient to [facility] neuro ICU for subarachnoid hemorrhage), Discussing w/Patient &/or Family/Podiatric Medicine Professor (Discussion with since she is not able to give history), Discussing w/Consultants (Critical care personnel and neuro personnel at [facility]) and Arranging Admission or Transfer Discharge Plan Triage Chief Complaint: Seizure ED Provider: Edward Liu Dx/Rx/DC Orders Clinical Impression: Subarachnoid hemorrhage, Hipolito-neglect of left side, LUE weakness, Cognitive dysfunction, Mitral regurgitation, Status epilepticus, Sinus tachycardia, Leukocytosis Prescriptions: No Action cetirizine 10 mg tablet 10 mg PO DAILY PRN acetaminophen 325 mg Tablet 650 mg PO Q4H PRN (Reason: Pain Score 1-10) Qty: 0 0RF ondansetron HCl 4 mg tablet 4 mg PO Q4H PRN PRN (Reason: nausea) gabapentin 300 mg capsule 300 mg PO QHS escitalopram oxalate 5 mg tablet 5 mg PO DAILY Primary Care Provider: Sandip Douglas Referrals: Sandip Douglas DO [Primary Care Provider] - Print Language: Swedish Disposition Disposition: Acute Care Hospital Discharge Location: [facility]
--- NOTE | 2024-11-28 21:05 | CT_ITS ---
PROCEDURE: BRAIN/HEAD WITHOUT CONTRAST 11/28/2024 REASON FOR EXAM: STATUS EPILEPTICUS, HISTORY OF INTRAPARENCHYMAL BL TECHNIQUE: Head CT without intravenous contrast. Coronal and Sagittal reconstruction series were provided. One or more dose reduction techniques were used (e.g., Automated exposure control, adjustment of the mA and/or kV according to patient size, use of iterative reconstruction technique. RADIATION DOSE SUMMARY: CTDlvol: 45.0 mGy DLP: 796 mGycm COMPARISON: CT head on 09/07/2023, CTA head on 09/04/2024 FINDINGS: Brain: There is subarachnoid hemorrhage present at the left parietal and right occipital lobes. No significant midline shift. Unchanged encephalomalacia in the right frontal lobe., with a punctate hyperdensity internally which appears to represent a calcification (coronal image 33), unchanged from 09/04/2024. Calcification in the sella turcica is unchanged. CSF Spaces: Unchanged. Sinuses/Mastoids: Clear at visualized levels Bones: Postoperative changes of the right frontal calvarium. CT/Brain/Head without Contrast IMPRESSION: Left parietal and right occipital subarachnoid hemorrhage. Red Alert: Subarachnoid hemorrhage The critical information above was relayed directly by me by telephone to Edward Liu on 11/28/2024 at 9:57 pm with readback verification. Reading Location: [place]
--- NOTE | 2024-11-28 21:05 | CT_ITS ---
PROCEDURE: CTA HEAD AND NECK W/ CONTRAST 11/28/2024 REASON FOR EXAM: BLEED TECHNIQUE: CTA imaging of the head and neck from the aortic arch to the skull vertex with out contrast and with intravenous contrast. Multiplanar and multisequence images were obtained. 3D post processing was performed One or more dose reduction techniques were used (e.g., Automated exposure control, adjustment of the mA and/or kV according to patient size, use of iterative reconstruction technique). RADIATION DOSE SUMMARY: CTDlvol: 18.3 mGy DLP: 664 mGycm COMPARISON: Same-day CT head, CTA head on 09/04/2024 FINDINGS: See same day CT head for details regarding subarachnoid hemorrhage. Aortic Arch: Normal size and branching pattern. No significant atherosclerotic plaque. Brachiocephalic and Subclavians: Unremarkable RIGHT Carotid: Right CCA: Unremarkable. Right ICA: Unremarkable. No significant stenosis Right ECA: Unremarkable. LEFT Carotid: Left CCA: Unremarkable. Left ICA: Unremarkable. No significant stenosis Left ECA: Unremarkable. Vertebrals: Codominant. Arise from the subclavians. Both vertebrals form the basilar. RIGHT Vertebral: Unremarkable. LEFT Vertebral: Unremarkable. Anatomy: Diminutive PCOMs. Otherwise unremarkable. Aneurysm or AVM: No intracranial aneurysms or large vascular malformations are identified. Anterior cerebral arteries: Unremarkable: Middle cerebral arteries: Unremarkable. Basilar artery: Unremarkable. Posterior cerebral arteries: Unremarkable. Other major branches of the posterior circulation: Unremarkable. Major venous structures: Unremarkable. Other findings: Neck: Left thyroid lobe calcification. No lymphadenopathy. Lungs: Lung apices are clear. Bones: Bones are unremarkable. CT/CTA Head AND Neck W/ Contrast IMPRESSION: No large vessel occlusion or hemodynamically significant narrowing of the head or neck vasculature. Reading Location: [id number]
--- NOTE | 2024-11-28 21:05 | CT_ITS ---
PROCEDURE: SPINE CERVICAL WITHOUT CONTRAS 11/28/2024 REASON FOR EXAM: TRAUMA GCS 8 TECHNIQUE: Cervical spine CT without contrast. Coronal and Sagittal reconstruction series were provided. One or more dose reduction techniques were used (e.g., Automated exposure control, adjustment of the mA and/or kV according to patient size, use of iterative reconstruction technique RADIATION DOSE SUMMARY: CTDlvol: 16.8 mGy DLP: 316 mGycm COMPARISON: CTA head on 09/04/2024 FINDINGS: Vertebral body heights and alignment are maintained. No displaced fracture. Calcifications near the atlantodental interval are unchanged and likely degenerative. Multilevel facet arthropathy resulting in up to mild neural foraminal narrowing. No spinal canal narrowing.. Calcification in the left thyroid lobe. Soft tissues are otherwise unremarkable. CT/Spine Cervical without Contras IMPRESSION: No displaced fracture or traumatic malalignment of the cervical spine. Reading Location: [id number]
[2024-11-28 21:07] LABS: Absolute Lymphocyte Count 1.79 X10^3/uL (0.83-4.51); Absolute Neutrophil Count 17.7 X10^3/uL (2.0-7.7); Basophil# 0.05 X10^3/uL; Basophil% 0.2 % (0-1); Hematocrit 45.9 % (37-47); Hemoglobin 15.7 g/dL (12.0-15.0); Lymphocyte # 1.79 X10^3/ul (0.83-4.51); Lymphocyte % 8.8 % (19-41); Mean Corp Hgb Conc 34.2 g/dL (32-36); Mean Corpuscular Volume 93.7 fL (81-99); Mean Platelet Vol. 9.8 fl (6.2-12.0); Monocyte# 0.81 X10^3/uL; NRBC Flagged by Analyzer 0 % (0-5); Neutrophil # 17.65 X10^3/uL (2.7-7.7); Neutrophil % 86.5 % (47-70); Platelet Count 391 K/mm3 (150-450); RBC Distribution Width CV 12.1 % (11.6-14.6); RBC Distribution Width SD 42.2 fl (35.1-43.9); White Blood Count 20.4 K/mm3 (4.4-11.0)
[2024-11-28 21:27] LABS: International Normalized Ratio 1.1; Prothrombin Time (Protime)PT. 14.3 SECONDS (11.7-14.9)
[2024-11-28 21:28] LABS: Partial Thromboplast Time 25.2 Seconds (24.1-36.2)
[2024-11-28 21:35] LABS: Anion Gap 31 (5-15); BUN 13 mg/dL (4-19); BUN/Creat Ratio 13.6 RATIO (10-20); Calcium,Total 9.6 mg/dL (7.6-11.0); Carbon Dioxide 10.5 mmol/L (21.0-32.0); Chloride 99 mmol/L (98-108); Creatinine, Serum 0.95 mg/dL (0.70-1.20); EST Glomerular Filtration Rate 74 (>60); Estimated Creatinine Clearance 68.95 ml/min (50-250); Glucose 228 mg/dL (70-99); Potassium 3.3 mmol/L (3.3-5.1); Sodium Level 141 mmol/L (133-145)
[2024-11-28] MEDS: NORMAL SALINE 0.9% IV (21:40)
[2024-11-28] MEDS: LEVETIRACETAM IV (21:40)
[2024-11-28 21:46] LABS: Amphetamine Urine NEGATIVE (<1000 ng/mL); Barbiturate Urine NEGATIVE (< 200 ng/mL); Benzodiazepine Urine NEGATIVE (< 200 ng/mL); Buprenorphine Urine NEGATIVE (< 200 ng/mL); Cocaine Urine NEGATIVE (< 300 ng/mL); Fentanyl, Urine NEGATIVE; Methadone Urine NEGATIVE (< 300 ng/mL); Opiates Urine NEGATIVE (< 300 ng/mL); Oxycodone, Urine NEGATIVE (< 100 ng/mL); PCP Urine NEGATIVE (< 25 ng/mL); THC Urine PRESUMPTIVE POSITIVE (< 50 ng/mL)
[2024-11-28] MEDS: Ondansetron 4 MG/2 ML Vial IV (21:55)
[2024-11-28 22:16] LABS: Internal QC Validated? YES +Cl - CLEAR BKGD; Pregnancy, Serum, hCG Quali. NEGATIVE Negative; Record Kit Lot#, Serum Preg. 947241
[2024-11-28 22:22] LABS: Alcohol, Blood (Medical)-Serum < 10.1 mg/dL (<=10.0)
[2024-11-28 22:27] LABS: Lactic Acid 9.3 mmol/L (0.0-2.0)
[2024-11-28] MEDS: NICARdipine 25 MG in 0.9% Normal Saline (250mL Bag) 240 ML 50 MG CONT INF (22:28)
[2024-11-29 01:51] LABS: Reflex Lactate? Y
[2024-11-29 18:55] LABS: Bedside Glucose 238 mg/dL (74-106)
== END 2024-11-28 22:42 | disposition short-term general hospital (02) ==
PROVIDERS: Emergency Provider Emergency Medicine; PCP Family Medicine; Referring Provider Emergency Medicine; Visit Provider Emergency Medicine
DX: I60.9 Nontraumatic subarachnoid hemorrhage, unspecified (principal); I69.854 Hemiplegia and hemiparesis following other cerebrovascular disease affecting left non-dominant side; G40.401 Other generalized epilepsy and epileptic syndromes, not intractable, with status epilepticus; R29.898 Other symptoms and signs involving the musculoskeletal system; R00.0 Tachycardia, unspecified; I34.0 Nonrheumatic mitral (valve) insufficiency; F17.210 Nicotine dependence, cigarettes, uncomplicated; Z79.899 Other long term (current) drug therapy
CPT/HCPCS: 51702; 70450; 70496; 70498; 72125; 80048; 80307; 82077; 82962; 83605; 84703; 85025; 85610; 85730; 93005; 96365; 96367; 96375; 99285; Q9967; A4216; J2405

== ENCOUNTER → 2025-07-07 | Outpatient (CLI) | payer OTHER, SELFPAY ==
--- NOTE | 2025-07-07 09:14 | SP.MBSS_ITS ---
Modified Barium Swallow Patient Information Study Date: 07/07/25 Study Time: 09:30 Direct Billable Minutes: 135 Total Minutes procedure & reportin Diagnosis: R13.12 Referring Physician: Sandip Douglas Reason for Referral: Per patient and caregiver, Allie, the patient has increased coughing w/ food and drink, as well as increased throat clearing and coughing after meals. Medical History: H&P per Speech Therapy Evaluation 03/13/2025: Hx of subarachnoid hemorrhage and seizure. Lola presented to the emergency department on 11/28/24 via EMS after having a generalized tonic-clonic seizure. Her heard a thump and when he entered the room Lola was in, she was seizing. CT of the head revealed a subarachnoid hemorrhage. Per CT report...There is subarachnoid hemorrhage present at the left parietal and right occipital lobes. No significant midline shift. Unchanged encephalomalacia in the right frontal lobe, with a punctate hyperdensity internally which appears to represent a calcification (coronal image 33), unchanged from 09/04/2024. Calcification in the sella turcica is unchanged. There is evidence of the prior intraparenchymal bleed. There is no evidence of subdural epidural hematoma...Lola has a history of strokes, as she has an ICH with craniotomy in 2022. Lola arriving with child care sitter who is a former INDUSTRIAL PRODUCTION MANAGER, and she helped serve as historian. Lola was residing at [facility] from hospital d/c to February 2025 and now is living at home with her and daughter. Lola had a PEG following SAH and it was removed at the end of February 2025. Pt and child care sitter stated that she had an MBSS while she was living at [facility] in January 2025, and stated that she passed and was recommend ed a diet of thin liquid and regular food. POC was initiated at rehabilitation to address dysarthria and dysphagia. Pt was recommended for this MBSS to re-assess swallow function and aspiration risk. Per treating MAIL MANAGER, 3-second prep has been beneficial. Current Diet Ordered: Regular textures / Thin liquids Mental Status: Impaired (Hx of cognitive dysfunction; however, pt followed multi-step commands for evaluation w/o difficulty) Respiratory Status: Oxygenating on Room Air Penetration-Aspiration Scale Penetration-Aspiration Scale: OBJECTIVE ASSESSMENT OF SWALLOW FUNCTION (QUANTITATIVE ? PER TRIAL): PENETRATION / ASPIRATION SCALE (ULRICH): 1 = does not enter airway 2 = enters airway/above vocal folds/ejected 3 = enters airway/above vocal folds/not ejected 4 = enters airway/contacts vocal folds/ejected 5 = enters airway/contacts vocal folds/not ejected 6 = enters airway/below vocal folds/ejected 7 = enters airway/below vocal folds/not ejected despite effort 8 = enters airway/below vocal folds/no effort VIDEOFLOROSCOPIC SCALE SCORE (ULRICH): Grade I = aspiration of material that has penetrated into the laryngeal vestibule, intact cough reflex Grade II = aspiration < 10 % of the bolus, intact cough reflex Grade III = aspiration of < 10 % of the bolus, reduced cough reflex or aspiration of > 10 % of the bolus, intact cough reflex Grade IV = aspiration of > 10 % of the bolus, reduced cough reflex Penetration-Aspiration Scale Score Thin Liquid via teaspoon: Result: 2= enter airway/above vocal folds/ejected Thin Liquid via teaspoon Trial 2: Result: 2= enter airway/above vocal folds/ejected Thin Liquid via small single sip: cup: Result: 4= enters airway/contacts vocal folds/ejected Thin Liquid via small single sip: cup 3-second prep: Result: 2= enter airway/above vocal folds/ejected Thin Liquid via small single sip: cup Effortful swallow: Result: 5= enters airways/contacts vocal folds/not ejected [place] Thick Liquid via small single sip: cup: Result: 1= does not enter airway [place] Thick Liquid via small single sip: cup Trial 2: Result: 1= does not enter airway Comment: Silent post prandial aspiration, likely of thin liquid residues remaining in the laryngeal vestibule from previous trials Cued cough X2, throat clear, and re-swallow Pudding via teaspoon: Result: 1= does not enter airway Comment: Esophageal screen - Retention in the upper and middle esophagus. Cued an additional swallow to clear residues = not effective. Cued a chin tuck to clear residues = somewhat effective. Thin liquid via single sip: straw, 3-second prep: Result: 4= enters airway/contacts vocal folds/ejected Comment: Esophageal screen - Liquid wash is somewhat effective in clearing esophageal retention; however, continued moderate retention of pudding in the upper and middle esophagus. Thin Liquid via small single sip: cup, 3-second prep trial 2: Result: 7= enters airways/below vocal folds/not ejected despite effort Thin Liquid via small single sip: cup Chin tuck: Result: 5= enters airways/contacts vocal folds/not ejected Comment: Cued cough, throat clear, and re-swallow Thin Liquid via small single sip: cup Right head turn: Result: 3= enters airways/above vocal folds/not ejected Thin Liquid via small single sip: cup Right head turn Trial 2: Result: 5= enters airways/contacts vocal folds/not ejected Thin Liquid via teaspoon, 3-second prep: Result: 2= enter airway/above vocal folds/ejected 1/2 Cookie: Result: 1= does not enter airway Thin Liquid via teaspoon Trial 3: Result: 2= enter airway/above vocal folds/ejected Comment: Cued cough and re-swallow Silent post prandial aspiration, possibly of pharyngeal residues from previous trials. [place] Thick Liquid via small single sip: cup Trial 3: Result: 1= does not enter airway [place] Thick Liquid via small single sip: cup Trial 4: Result: 3= enters airways/above vocal folds/not ejected Thin Liquid via small single sip: cup Supraglottic swallow: Result: 7= enters airways/below vocal folds/not ejected despite effort Oral Phase Labial Seal: Interlabial escape, no progression to anterior lip Tongue Control During Bolus Hold: Posterior escape of greater than half of bolus Bolus Preparation/Mastication: Disorganized chewing/mashing with solid pieces of bolus unchewed Bolus Transport/Lingual Motion: Delayed initiation of tongue motion Oral Residue: Residue collection on oral structures Pharyngeal Phase Initiation of Pharyngeal Swallow: Bolus head in pyriforms Soft Palate Elevation: Trace column of contrast/air between soft palate and pharyngeal wall Laryngeal Elevation: Partial superior movement thyroid cart/partial apprx aryt- epig petiole Anterior Hyoid Excursion: Partial anterior movement Epiglottic Movement: Partial inversion Laryngeal Vestibule Closure at Height of Swallow: Incomplete; narrow column of air/contrast in laryngeal vestibule Pharyngeal Stripping Wave: Present - diminished Pharyngoesophageal Segment Opening: Parital distension and partial duration; parital obstruction of flow Tongue Base Retraction: Wide column of contrast between tongue base & post. pharyngeal wall Pharyngeal Residue: Collection of residue within or on pharyngeal structures Esophageal Phase Esophageal Clearance: Esophageal retention Diagnosis/Impression Diagnosis: Moderate oropharyngeal dysphagia R13.12; Esophageal dysphagia R13.14 MBS Impressions: The oral phase is primarily marked by... -Posterior loss of all consistencies (>1/2 the bolus) to the pharynx prior to swallow onset, contributing to increased aspiration risk. -Delayed tongue motion for A-P transport. -Cookie appeared mostly chewed; however, some posterior loss to the posterior surface of the epiglottis prior to swallow onset. The pharyngeal phase is primarily marked by... -Decreased pharyngeal motility d/t decreased TB retraction, pharyngeal stripping wave, and UES opening/duration of opening. Mild-moderate pharyngeal residues mostly notable w/ pudding and cookie. Independent use of multiple swallows was somewhat effective in clearing pharyngeal residues. Liquid wash and chin tuck were also somewhat effective in reducing pharyngeal residues. -Decreased airway closure during the swallow due to decreased anterior hyoid excursion, laryngeal elevation, and partial epiglottic inversion. SILENT post prandial aspiration of liquid residues (likely thin liquid) occurred 2X during the MBSS. Overt aspiration of thin liquids via cup w/ 3-second prep and thin liquids via cup w/ supraglottic swallow. Several strategies were trialed (3-second prep, effortful swallow, use of straw, chin tuck, R head turn, supraglottic swallow), but none were effective in decreasing aspiration risk. 3- second prep was somewhat effective in junction w/ tsp sips to decrease risk for aspiration. The esophageal phase is primarily marked by... -Retention of pudding in the upper and middle esophagus. Liquid wash was somewhat effective in clearing esophageal retention; however, continued moderate retention of pudding in the upper and middle esophagus after liquid wash. Recommendations Diet: Regular Textures and Thin Liquids Comment: If sensation of retention of foods despite use of strategies below, stop meal and resume at a later time. Please consider implementation of [place] Free Water Protocol to improve pt's hydration given strict aspiration precautions below (tsp sips). Please consider implementation of bolus control cup/straw to promote independence w/ use of safe swallowing precautions. Compensatory Strategies: Small Bites, Liquid by Teaspoon Only (3-second prep), Slow Rate, Alternate bites/solids and sips/liquids (Take a sip after every 1-2 bites) and Sitting upright (During and 60min after meals) Supervision: Assist as needed (Verbal cues as needed) Recommend Repeat Modified Barium Swallow: Yes (Repeat instrumental assessment of swallow (MBSS or FEES) after 4-8 weeks of participation in oropharyngeal exercis e program to re-assess aspiration risk.) Need for Skilled Speech Therapy Services: Yes Comment: -Train the patient in aspiration and reflux aspiration precautions. -If poor diet tolerance or worsening respiratory status, consider downgrade to mildly/nectar thick liquids. -Train the patient in oral care routine and FFWP. -Train the patient in oral motor and oropharyngeal exercise program (lingual resistance, Wendy, effortful, Sari, CTAR). Recommended Referrals: GI Consult Education Completed: 1. Described result of evaluation., 2. Pt understands evaluation & agrees with goals and treatment plan., 4. Family/caregivers understand evaluation & agree w/ goals & tx plan. and 7. Pt requires further education on strategies & risks. Status Active ST Patient: Active Contact Information [facility] Speech Therapy:: Maryan Gunn M.A. CCC-MAIL MANAGER Speech-Language Pathologist [facility] [address] [place] [address] [email or web address] [phone]
== END | disposition home or self-care (01) ==
LOC: RAD 09:21
PROVIDERS: PCP Family Medicine; Referring Provider Family Medicine; Visit Provider Family Medicine
DX: R13.10 Dysphagia, unspecified (principal)
CPT/HCPCS: 74230; 92611